=== PATIENT | male | born 1950 | race American Indian/Alaskan Native ===

== ENCOUNTER 2021-02-01 02:47 | Inpatient (IN) | payer OTHER, MEDICARE ==
[2021-02-01] MEDS ORDERED: cefTRIAXone/NS 2 GM/100 ML 2 GM/100 ML BAG IV ONE (02:52)
[2021-02-01] MEDS ORDERED: FUROSEMIDE 20 MG TAB PO ONE (02:53)
[2021-02-01 03:20] LABS: Basophils # (Auto) 0.1 K/mm3 (0.0-0.1); Basophils % (Auto) 0.7 % (0.0-1.8); Eosinophils # (Auto) 0.5 K/mm3 (0.0-0.4); Eosinophils % (Auto) 3.3 % (0.0-4.3); Hematocrit 35.2 % (35.5-45.6); Hemoglobin 11.8 gm/dl (11.8-15.2); Lymphocytes # (Auto) 1.4 K/mm3 (1.2-5.4); Lymphocytes % (Auto) 9.8 % (13.4-35.0); Mean Corpuscular HGB Conc 34 % (32-34); Mean Corpuscular Volume 86 fl (84-94); Monocytes # (Auto) 1.1 K/mm3 (0.0-0.8); Monocytes % (Auto) 7.3 % (0.0-7.3); Platelet Count 313 K/mm3 (140-440); Red Blood Count 4.08 M/mm3 (3.65-5.03); Red Cell Distribution Width 18.6 % (13.2-15.2)
[2021-02-01] MEDS ORDERED: FUROSEMIDE 40 MG/4 ML INJ ONE (03:25)
--- NOTE | 2021-02-01 03:25 | XRay Report ---
Chest single view INDICATION: Respiratory distress IMPRESSION: Severe bilateral airspace disease. Signer Name: Clay Walker MD Signed: 02/01/2021 3:20 AM Workstation Name: [id number]
[2021-02-01 03:45] LABS: Alanine Aminotransferase 19 units/L (7-56); Albumin 4.4 g/dL (3.9-5); BUN/Creatinine Ratio 11; Blood Urea Nitrogen 20 mg/dL (9-20); Calcium 9.2 mg/dL (8.4-10.2); Hemolysis Index 4
[2021-02-01] MEDS ORDERED: AZITHROMYCIN/NS 500 MG/250 ML 500 MG/250 ML BAG IV ONE (04:43)
--- NOTE | 2021-02-01 04:53 | History and Physical Report ---
History of Present Illness Date of examination: 02/01/21 Date of admission: 02/01/2021 Chief complaint: Shortness of Breath History of present illness: 70-year-old -[place] male with known history of hypertension, congestive heart failure and COPD presenting to the emergency room today complaining of shortness of breath. Shortness of breath has been ongoing for the past few days and patient has been using his nebulizing treatments without any significant improvement. He also indicates that he has been having some progressive lower extremity swelling and shortness of breath seems to get worse upon lying flat. He denies any fever or chills, no chest pain, no nausea vomiting, no headache or dizziness, no diaphoresis. Patient denies any sick contacts and no recent travel. Denies any contact with anyone with COVID-19. Patient indicates that he has had a Covid 19 vaccination. He receives his care at the [facility]. Upon arrival of EMS patient's oxygen saturation was about 60% and he was placed on nonrebreather in route to the hospital. Upon arrival in the emergency room he was found to be quite hypertensive and in respiratory distress. Patient was placed on nitro drip and also placed on BiPAP. He received some nebulizing treatment with some improvement. Work-up in the emergency room today, chest x-ray reveals severe bilateral airspace disease. Labs were significant for WBC of 14.7, potassium of 5.1, creatinine of 1.8 Patient is being admitted for respiratory failure possibly secondary to pulmonary edema, pneumonia versus COPD exacerbation. He will also be ruled out for COVID-19. Past History Past Medical History: COPD, heart failure, hypertension Past Surgical History: No surgical history Social history: smoking (Patient is a former smoker) Family history: no significant family history Medications and Allergies Allergies Allergy/AdvReac Type Severity Reaction Status Date / Time shellfish derived Allergy Itching Verified 02/01/21 03:16 Active Meds: Active Medications Azithromycin (Zithromax/Ns) 500 mg in 250 mls @ 250 mls/hr IV ONCE ONE; Protocol Stop: 02/01/21 05:42 Review of Systems Constitutional: no fever, no chills Ears, nose, mouth and throat: no nasal congestion, no sore throat Cardiovascular: orthopnea, edema, no chest pain, no palpitations Respiratory: shortness of breath, wheezing, no cough, no cough with sputum Gastrointestinal: no abdominal pain, no nausea, no vomiting, no diarrhea Genitourinary Male: no dysuria, no hematuria, no flank pain, no nocturia Musculoskeletal: no neck pain, no low back pain Integumentary: no rash, no pruritis Neurological: no headaches, no confusion Psychiatric: no anxiety, no depression Endocrine: no polyphagia, no polydipsia, no polyuria Exam - Constitutional Vitals: Temp Pulse Resp BP Pulse Ox 97 F L 97 H 38 H 166/84 91 02/01/21 02:53 02/01/21 03:44 02/01/21 03:44 02/01/21 03:44 02/01/21 03:44 General appearance: Present: mild distress, well-nourished - EENT Eyes: Present: PERRL, EOM intact. Absent: scleral icterus ENT: hearing intact, clear oral mucosa, dentition normal - Neck Neck: Present: supple, normal ROM - Respiratory Respiratory effort: normal Respiratory: bilateral: rales ( lung bases), other (Few scattered wheezes) - Cardiovascular Rhythm: regular Heart Sounds: Present: S1 & S2. Absent: gallop, systolic murmur, diastolic murmur, rub, click - Extremities Extremities: no ischemia, pulses intact, pulses symmetrical, normal temperature, normal color, Full ROM Extremity abnormal: edema (1+ bilateral ankle edema) Peripheral Pulses: within normal limits - Abdominal General gastrointestinal: Present: soft, non-tender, non-distended, normal bowel sounds, mass - Integumentary Integumentary: Present: clear, warm, dry, normal turgor. Absent: rash - Musculoskeletal Musculoskeletal: strength equal bilaterally - Psychiatric Psychiatric: appropriate mood/affect, intact judgment & insight, memory intact, cooperative - Neurologic Neurologic: CNII-XII intact, no focal deficits, moves all extremities HEART Score - HEART Score Troponin: Troponin T < 0.010 ng/mL (0.00-0.029) 02/01/21 03:10 Results - Labs CBC & Chem 7: 02/01/21 03:10 02/01/21 03:10 Labs: Abnormal lab results 02/01/21 02/01/21 Range/Units 03:10 03:10 WBC 14.7 H (4.5-11.0) K/mm3 Hct 35.2 L (35.5-45.6) % RDW 18.6 H (13.2-15.2) % Lymph % (Auto) 9.8 L (13.4-35.0) % [place] # (Auto) 1.1 H (0.0-0.8) K/mm3 Eos # (Auto) 0.5 H (0.0-0.4) K/mm3 Seg Neutrophils % 78.9 H (40.0-70.0) % Seg Neutrophils # 11.6 H (1.8-7.7) K/mm3 Potassium 5.1 H (3.6-5.0) mmol/L Chloride 97.3 L (98-107) mmol/L Carbon Dioxide 31 H (22-30) mmol/L Creatinine 1.8 H (0.8-1.3) mg/dL Glucose 148 H (75-100) mg/dL Assessment and Plan - Patient Problems (1) Acute respiratory distress Current Visit: Yes Status: Acute Plan to address problem: Possibly secondary to the pulmonary edema/COPD versus underlying pneumonia. Patient currently on BiPAP. He has been started on empiric IV antibiotics for possible underlying pneumonia. He is also placed on nebulizing treatments and IV steroid. Consult placed to conservation assistant for evaluation and recommendations. (2) COPD (chronic obstructive pulmonary disease) Current Visit: Yes Status: Acute Plan to address problem: Patient placed on nebulizing treatments and IV steroid. We will keep O2 saturation greater or equal to 94%. (3) Hypertensive emergency Current Visit: Yes Status: Acute Plan to address problem: Patient was placed on nitro drip while in the emergency room with significant improvement in blood pressure. We will monitor blood pressure closely. We will also place on IV hydralazine as needed. (4) Hypoxia Current Visit: Yes Status: Acute Plan to address problem: Possibly secondary to the underlying pneumonia versus COPD/ pulmonary edema. We will keep O2 saturation greater or equal to 94%. (5) Pulmonary edema Current Visit: Yes Status: Acute Plan to address problem: We will schedule patient for echocardiogram. Consult placed to cardiology for evaluation. (6) ASHLEY (acute kidney injury) Current Visit: Yes Status: Acute Plan to address problem: Baseline creatinine unknown. We will avoid nephrotoxic agents. Consult placed to nephrology for evaluation. (7) DVT prophylaxis Current Visit: Yes Status: Acute Plan to address problem: Patient placed on subcutaneous heparin. (8) Full code status Current Visit: Yes Status: Acute Plan to address problem: Patient is full code.
--- NOTE | 2021-02-01 04:54 | Emergency Department Report ---
ED Shortness of Breath HPI - General Chief Complaint: Dyspnea/Respdistress Stated Complaint: GURJIT Time Seen by Provider: 02/01/21 02:54 Source: patient Mode of arrival: Stretcher Limitations: No Limitations - History of Present Illness Initial Comments: Patient is a 70-year-old F [place] male with a past medical history of hypertension congestive heart failure and COPD who is presenting with respiratory distress. Patient states he has had some shortness of breath over the last several days has been taking neb treatments for wheezing. Symptoms worsened tonight and despite taking a neb treatment his symptoms did not improve. States he has had some leg swelling and shortness of breath with lying flat. Denies cough fevers chills nausea vomiting or diarrhea. Patient states he was vaccinated for COVID-19. Patient was found by paramedics in respiratory distress tripoding and satting in the upper 60% for his O2 sat. - Related Data Allergies Allergy/AdvReac Type Severity Reaction Status Date / Time shellfish derived Allergy Itching Verified 02/01/21 03:16 ED Review of Systems ROS: Stated complaint: GURJIT Other details as noted in HPI Comment: All other systems reviewed and negative ED Past Medical Hx - Past Medical History Previous Medical History?: Yes Hx Hypertension: No Hx CVA: No Hx Heart Attack/AMI: No Hx Congestive Heart Failure: Yes Hx Diabetes: Yes Hx Deep Vein Thrombosis: No Hx Pulmonary Embolism: No Hx GERD: No Hx Liver Disease: No Hx Renal Disease: No Hx of Cancer: No Hx Sickle Cell Disease: No Hx Arthritis: No Hx Headaches / Migraines: No Hx Seizures: No Hx Kidney Stones: No Hx Psychiatric Treatment: No Hx Asthma: No Hx COPD: Yes Hx Tuberculosis: No Hx Dementia: No Hx HIV: No - Surgical History Past Surgical History?: Yes - Social History Smoking Status: Never Smoker Substance Use Type: None ED Physical Exam - General Limitations: No Limitations General appearance: alert, in distress - Head Head exam: Present: atraumatic, normocephalic - Eye Eye exam: Present: normal appearance - ENT ENT exam: Present: mucous membranes moist - Neck Neck exam: Present: normal inspection - Respiratory Respiratory exam: Present: respiratory distress, rales, rhonchi, accessory muscle use. Absent: normal lung sounds bilaterally, wheezes, stridor - Cardiovascular Cardiovascular Exam: Present: normal rhythm, tachycardia, normal heart sounds. Absent: systolic murmur, diastolic murmur, rubs, gallop - GI/Abdominal GI/Abdominal exam: Present: soft, normal bowel sounds. Absent: distended, tenderness, guarding, rebound - Rectal Rectal exam: Present: deferred - Extremities Exam Extremities exam: Present: normal inspection, other (+1 edema bilateral ankles) - Back Exam Back exam: Present: normal inspection - Neurological Exam Neurological exam: Present: alert, oriented X3 - Psychiatric Psychiatric exam: Present: normal affect, normal mood - Skin Skin exam: Present: warm, dry, intact, normal color. Absent: rash ED Course Vital Signs 02/01/21 02/01/21 02:53 03:44 Temperature 97 F L Pulse Rate 97 H 97 H Respiratory 38 H Rate Blood Pressure 162/88 166/84 O2 Sat by Pulse 91 Oximetry ED Medical Decision Making - Lab Data Result diagrams: 02/01/21 03:10 02/01/21 03:10 Lab Results 02/01/21 02/01/21 02/01/21 Range/Units 03:10 03:10 03:10 WBC 14.7 H (4.5-11.0) K/mm3 RBC 4.08 (3.65-5.03) M/mm3 Hgb 11.8 (11.8-15.2) gm/dl Hct 35.2 L (35.5-45.6) % MCV 86 (84-94) fl MCH 29 (28-32) pg MCHC 34 (32-34) % RDW 18.6 H (13.2-15.2) % Plt Count 313 (140-440) K/mm3 Lymph % (Auto) 9.8 L (13.4-35.0) % [place] % (Auto) 7.3 (0.0-7.3) % Eos % (Auto) 3.3 (0.0-4.3) % Baso % (Auto) 0.7 (0.0-1.8) % Lymph # (Auto) 1.4 (1.2-5.4) K/mm3 [place] # (Auto) 1.1 H (0.0-0.8) K/mm3 Eos # (Auto) 0.5 H (0.0-0.4) K/mm3 Baso # (Auto) 0.1 (0.0-0.1) K/mm3 Seg Neutrophils % 78.9 H (40.0-70.0) % Seg Neutrophils # 11.6 H (1.8-7.7) K/mm3 Sodium 140 (137-145) mmol/L Potassium 5.1 H (3.6-5.0) mmol/L Chloride 97.3 L (98-107) mmol/L Carbon Dioxide 31 H (22-30) mmol/L Anion Gap 17 mmol/L BUN 20 (9-20) mg/dL Creatinine 1.8 H (0.8-1.3) mg/dL Estimated GFR 45 ml/min BUN/Creatinine Ratio 11 % Glucose 148 H (75-100) mg/dL Lactic Acid (0.7-2.0) mmol/L Calcium 9.2 (8.4-10.2) mg/dL Total Bilirubin 0.40 (0.1-1.2) mg/dL AST 22 (5-40) units/L ALT 19 (7-56) units/L Alkaline Phosphatase 116 (35-129) units/L Troponin T < 0.010 (0.00-0.029) ng/mL NT-Pro-B Natriuret Pep 397.4 (0-900) pg/mL Total Protein 7.7 (6.3-8.2) g/dL Albumin 4.4 (3.9-5) g/dL Albumin/Globulin Ratio 1.3 % 02/01/ Range/Units 03:10 WBC (4.5-11.0) K/mm3 RBC (3.65-5.03) M/mm3 Hgb (11.8-15.2) gm/dl Hct (35.5-45.6) % MCV (84-94) fl MCH (28-32) pg MCHC (32-34) % RDW (13.2-15.2) % Plt Count (140-440) K/mm3 Lymph % (Auto) (13.4-35.0) % [place] % (Auto) (0.0-7.3) % Eos % (Auto) (0.0-4.3) % Baso % (Auto) (0.0-1.8) % Lymph # (Auto) (1.2-5.4) K/mm3 [place] # (Auto) (0.0-0.8) K/mm3 Eos # (Auto) (0.0-0.4) K/mm3 Baso # (Auto) (0.0-0.1) K/mm3 Seg Neutrophils % (40.0-70.0) % Seg Neutrophils # (1.8-7.7) K/mm3 Sodium (137-145) mmol/L Potassium (3.6-5.0) mmol/L Chloride (98-107) mmol/L Carbon Dioxide (22-30) mmol/L Anion Gap mmol/L BUN (9-20) mg/dL Creatinine (0.8-1.3) mg/dL Estimated GFR ml/min BUN/Creatinine Ratio % Glucose (75-100) mg/dL Lactic Acid 1.80 (0.7-2.0) mmol/L Calcium (8.4-10.2) mg/dL Total Bilirubin (0.1-1.2) mg/dL AST (5-40) units/L ALT (7-56) units/L Alkaline Phosphatase (35-129) units/L Troponin T (0.00-0.029) ng/mL NT-Pro-B Natriuret Pep (0-900) pg/mL Total Protein (6.3-8.2) g/dL Albumin (3.9-5) g/dL Albumin/Globulin Ratio % - Radiology Data [facility] [address] [place] [address] XRay Report Signed Patient: ELLA POLANCO MR#: [id number] : 1950 Acct:[id number] Age/Sex: 70 / M ADM Date: 02/01/21 Loc: ED Attending Dr: Ordering Physician: CJ GARCÍA MD Date of Service: 02/01/21 Procedure(s): XR chest 1V ap Accession Number(s): [id number] cc: CJ GARCÍA MD Fluoro Time In Minutes: Chest single view INDICATION: Respiratory distress IMPRESSION: Severe bilateral airspace disease. Signer Name: Clay Walker MD Signed: 02/01/2021 3:20 AM Workstation Name: [id number] - Medical Decision Making Patient is 70-year-old F [place] male with past medical history of COPD CHF and hypertension who is in respiratory distress and hypoxia. Patient was wheezing initially when paramedics arrived and received neb treatment and solumedrol and the wheezing resolved. Patient blood pressure in the 190s systolic. On arrival blood pressure was in the 160s. Nitro drip was ordered however did not need to be given since the patient's blood pressure continued to drop. At time of admission systolic was 120. Patient given Rocephin initially the sepsis protocol. Chest x-ray showed what looks like pulmonary edema however there was some mild asymmetric findings which made the pneumonia unable to be ruled out. There is some elevation of his white count as well. Patient started on azithromycin and Rocephin. Patient given Lasix and started on diuresis. He did much more comfortable on BiPAP. Patient admitted to the hospitalist service. Critical Care Time: Yes (40) Critical care attestation.: If time is entered above; I have spent that time in minutes in the direct care of this critically ill patient, excluding procedure time. ED Disposition Clinical Impression: Acute respiratory distress, Hypoxia, Pulmonary edema, Hypertensive emergency, COPD (chronic obstructive pulmonary disease) Disposition: OP ADMIT IP TO THIS HOSP Is pt being admited?: Yes Does the pt Need Aspirin: No Condition: Stable Instructions: Pulmonary Edema (ED), Hypertension (ED), Chronic Obstructive Pulmonary Disease (ED) Time of Disposition: 04:55
[2021-02-01] MEDS ORDERED: ONDANSETRON 4 MG/2 ML INJ IV PRN (05:00)
[2021-02-01] MEDS ORDERED: MAGNESIUM HYDROXIDE (MOM) ORAL LIQD UDC PO PRN (05:00)
[2021-02-01] MEDS ORDERED: MORPHINE 2 MG/1 ML INJ IV PRN (05:00)
[2021-02-01 05:34] LABS: C-Reactive Protein 1.1 mg/dL (0.00-1.30)
[2021-02-01] MEDS: methylPREDNISolone Sod Succinate 40 MG/1 ML INJ IV SCH ×3 (06:00→23:24)
[2021-02-01] MEDS: HEPARIN 5,000 UNIT/1 ML VIAL SUB-Q SCH ×3 (06:00→23:23)
[2021-02-01] MEDS ORDERED: FUROSEMIDE 40 MG/4 ML INJ IV ONE (06:04)
[2021-02-01] MEDS ORDERED: hydrALAZINE 20 MG/1 ML INJ IV PRN (06:21)
--- NOTE | 2021-02-01 09:28 | Consultation ---
History of Present Illness Reason for consult: dyspnea, abnormal CXR/CT History of present illness: This is gentleman with hx of copd, chf who comes in with sob. He was doing well until a few days ago when he began having these symptoms. He self treated to nebulizer treatments without improvement. He came to er in distress. CXR showed bilateral infiltrates and started on bipap. Presently is awake and responsive on bipap on bipap 16/ 85% Past History Past Medical History: COPD, heart failure, hypertension Past Surgical History: No surgical history Social history: smoking (Patient is a former smoker) Family history: no significant family history Medications and Allergies Allergies Allergy/AdvReac Type Severity Reaction Status Date / Time shellfish derived Allergy Itching Verified 02/01/21 03:16 Active Meds: Active Medications Albuterol/Ipratropium (Ipratropium/Albuterol Sulfate 3 Ml Ampul.Neb) 1 ampul IH Q4HRT REVA Heparin Sodium (Porcine) (Heparin 5,000 Unit/1 Ml Vial) 5,000 unit SUB-Q Q8HR REVA Last Admin: 02/01/21 06:00 Dose: 5,000 unit Documented by: Hydralazine HCl (Hydralazine 20 Mg/1 Ml Inj) 10 mg IV Q4HR PRN PRN Reason: Blood Pressure Ceftriaxone Sodium (Rocephin/Ns 2 Gm/100 Ml) 2 gm in 100 mls @ 200 mls/hr IV Q24H REVA; Protocol Azithromycin (Zithromax/Ns) 500 mg in 250 mls @ 250 mls/hr IV Q24H REVA; Protocol Magnesium Hydroxide (Magnesium Hydroxide (Mom) Oral Liqd Udc) 30 ml PO Q4H PRN PRN Reason: Constipation Methylprednisolone Sodium Succinate (Methylprednisolone Sod Succinate 40 Mg/1 Ml Inj) 40 mg IV Q8HR REVA Last Admin: 02/01/21 06:00 Dose: 40 mg Documented by: Morphine Sulfate (Morphine 2 Mg/1 Ml Inj) 2 mg IV Q4H PRN PRN Reason: Pain, Moderate (4-6) Ondansetron HCl (Ondansetron 4 Mg/2 Ml Inj) 4 mg IV Q8H PRN PRN Reason: Nausea And Vomiting Sodium Chloride (Sodium Chloride 0.9% 10 Ml Flush Syringe) 10 ml IV BID REVA Sodium Chloride (Sodium Chloride 0.9% 10 Ml Flush Syringe) 10 ml IV PRN PRN PRN Reason: LINE FLUSH Review of Systems Constitutional: weakness Respiratory: shortness of breath Integumentary: other (edema 1+ bilateral) Physical Examination Vital signs: Vital Signs Temp Pulse BP 97 F L 97 H 162/88 02/01/21 02:53 02/01/21 02:53 02/01/21 02:53 General appearance: alert Eyes: non-icteric ENT: oropharynx moist, other (no jvd) Neck: supple, no JVD Ascultation: Bilateral: diminished breath sounds Cardiovascular: regular rate and rhythm Gastrointestinal: normoactive bowel sounds, soft, non-tender Extremities: edema Results - Laboratory Findings CBC and BMP: 02/01/21 03:10 02/01/21 03:10 PT/INR, D-dimer D-Dimer 872.83 ng/mlDDU (0-234) H 02/01/21 04:47 Abnormal lab findings: Abnormal Labs 02/01/21 02/01/21 02/01/21 03:10 03:10 03:10 WBC 14.7 H Hct 35.2 L RDW 18.6 H Lymph % (Auto) 9.8 L [place] # (Auto) 1.1 H Eos # (Auto) 0.5 H Seg Neutrophils % 78.9 H Seg Neutrophils # 11.6 H D-Dimer Potassium 5.1 H Chloride 97.3 L Carbon Dioxide 31 H Creatinine 1.8 H Glucose 148 H Lactate Dehydrogenase 243 H 02/01/21 04:47 WBC Hct RDW Lymph % (Auto) [place] # (Auto) Eos # (Auto) Seg Neutrophils % Seg Neutrophils # D-Dimer 872.83 H Potassium Chloride Carbon Dioxide Creatinine Glucose Lactate Dehydrogenase - Diagnostic Findings Chest x-ray: report reviewed, image reviewed Assessment and Plan - Patient Problems (1) ASHLEY (acute kidney injury) Current Visit: Yes Status: Acute (2) Acute respiratory distress Current Visit: Yes Status: Acute (3) COPD (chronic obstructive pulmonary disease) Current Visit: Yes Status: Acute (4) Hypoxia Current Visit: Yes Status: Acute (5) Pulmonary edema Current Visit: Yes Status: Acute
--- NOTE | 2021-02-01 09:34 | Progress Note ---
Assessment and Plan Assessment and plan: Acute hypoxic respiratory failure Sepsis. Present on admission. Patient meets criteria given the tachypnea, tachycardia, leukocytosis and diagnosis of pneumonia. Bilateral pneumonia COPD exacerbation Accelerated hypertension Acute kidney injury. 02/01/2021. Patient with acute respiratory failure likely secondary to bilateral pneumonia, COPD exacerbation and possibility of PE. Patient does have elevated D-dimer. Check VQ scan given the elevated creatinine. Doubt heart failure given the normal BNP and no evidence of pulmonary edema on x-ray. Follow-up echocardiogram and cardiology recommendations. Continue O2 supplementation and BiPAP as clinically indicated. Patient's creatinine is elevated at 1.8 and we do not have a baseline creatinine to compare. Check renal ultrasound and nep hrology consultation pending. I suspect patient has CKD. Continue IV antibiotics and follow-up blood and sputum cultures. Pulmonary consultation. This is a follow-up from an admission earlier this morning. We will continue to plan as outlined in H&P. Total visit time equals 35 minutes with greater than 50% spent on coordination of care and counseling. We will connect with [facility] to determine whether patient will be transferred to their acute facility. History Interval history: Acute hypoxic respiratory failure Sepsis. Present on admission. Patient meets criteria given the tachypnea, tachycardia, leukocytosis and diagnosis of pneumonia. Bilateral pneumonia COPD exacerbation Accelerated hypertension Acute kidney injury. 02/01/2021. Patient with acute respiratory failure likely secondary to bilateral pneumonia, COPD exacerbation and possibility of PE. Patient does have elevated D-dimer. Check VQ scan given the elevated creatinine. Doubt heart failure given the normal BNP and no evidence of pulmonary edema on x-ray. Follow-up e chocardiogram and cardiology recommendations. Continue O2 supplementation and BiPAP as clinically indicated. Patient's creatinine is elevated at 1.8 and we do not have a baseline creatinine to compare. Check renal ultrasound and nephrology consultation pending. I suspect patient has CKD. Continue IV antibiotics and follow-up blood and sputum cultures. Pulmonary consultation Hospitalist Physical - Constitutional Vitals: Temp Pulse Resp BP Pulse Ox 97 F L 85 19 110/72 97 02/01/21 02:53 02/01/21 05:45 02/01/21 05:45 02/01/21 05:45 02/01/21 05:45 General appearance: Present: mild distress, well-nourished HEART Score - HEART Score Troponin: Troponin T < 0.010 ng/mL (0.00-0.029) 02/01/21 03:10 Results - Labs CBC & Chem 7: 02/01/21 03:10 02/01/21 03:10 Labs: Laboratory Last Values WBC 14.7 K/mm3 (4.5-11.0) H 02/01/21 03:10 RBC 4.08 M/mm3 (3.65-5.03) 02/01/21 03:10 Hgb 11.8 gm/dl (11.8-15.2) 02/01/21 03:10 Hct 35.2 % (35.5-45.6) L 02/01/21 03:10 MCV 86 fl (84-94) 02/01/21 03:10 MCH 29 pg (28-32) 02/01/21 03:10 MCHC 34 % (32-34) 02/01/21 03:10 RDW 18.6 % (13.2-15.2) H 02/01/21 03:10 Plt Count 313 K/mm3 (140-440) 02/01/21 03:10 Lymph % (Auto) 9.8 % (13.4-35.0) L 02/01/21 03:10 [place] % (Auto) 7.3 % (0.0-7.3) 02/01/21 03:10 Eos % (Auto) 3.3 % (0.0-4.3) 02/01/21 03:10 Baso % (Auto) 0.7 % (0.0-1.8) 02/01/21 03:10 Lymph # (Auto) 1.4 K/mm3 (1.2-5.4) 02/01/21 03:10 [place] # (Auto) 1.1 K/mm3 (0.0-0.8) H 02/01/21 03:10 Eos # (Auto) 0.5 K/mm3 (0.0-0.4) H 02/01/21 03:10 Baso # (Auto) 0.1 K/mm3 (0.0-0.1) 02/01/21 03:10 Seg Neutrophils % 78.9 % (40.0-70.0) H 02/01/21 03:10 Seg Neutrophils # 11.6 K/mm3 (1.8-7.7) H 02/01/21 03:10 D-Dimer 872.83 ng/mlDDU (0-234) H 02/01/21 04:47 Sodium 140 mmol/L (137-145) 02/01/21 03:10 Potassium 5.1 mmol/L (3.6-5.0) H 02/01/21 03:10 Chloride 97.3 mmol/L (98-107) L 02/01/21 03:10 Carbon Dioxide 31 mmol/L (22-30) H 02/01/21 03:10 Anion Gap 17 mmol/L 02/01/21 03:10 BUN 20 mg/dL (9-20) 02/01/21 03:10 Creatinine 1.8 mg/dL (0.8-1.3) H 02/01/21 03:10 Estimated GFR 45 ml/min 02/01/21 03:10 BUN/Creatinine Ratio 11 % 02/01/21 03:10 Glucose 148 mg/dL (75-100) H 02/01/21 03:10 Lactic Acid 1.80 mmol/L (0.7-2.0) 02/01/21 03:10 Calcium 9.2 mg/dL (8.4-10.2) 02/01/21 03:10 Ferritin 166.6 ng/mL (30.0-300.0) 02/01/21 03:10 Total Bilirubin 0.40 mg/dL (0.1-1.2) 02/01/21 03:10 AST 22 units/L (5-40) 02/01/21 03:10 ALT 19 units/L (7-56) 02/01/21 03:10 Alkaline Phosphatase 116 units/L (35-129) 02/01/21 03:10 Lactate Dehydrogenase 243 units/L (91-180) H 02/01/21 03:10 Troponin T < 0.010 ng/mL (0.00-0.029) 02/01/21 03:10 C-Reactive Protein 1.10 mg/dL (0.00-1.30) 02/01/21 03:10 NT-Pro-B Natriuret Pep 397.4 pg/mL (0-900) 02/01/21 03:10 Total Protein 7.7 g/dL (6.3-8.2) 02/01/21 03:10 Albumin 4.4 g/dL (3.9-5) 02/01/21 03:10 Albumin/Globulin Ratio 1.3 % 02/01/21 03:10 Microbiology: Microbiology 02/01/21 03:10 Peripheral/Venous Blood Culture - Preliminary Culture in Progress 02/01/21 03:04 Peripheral/Venous Blood Culture - Preliminary Culture in Progress Active Medications - Current Medications Current Medications: Generic Name Dose Route Start Last Admin Trade Name Freq PRN Reason Stop Dose Admin Albuterol/Ipratropium 1 ampul 02/01/21 08:00 Ipratropium/Albuterol Sulfate 3 Ml Ampul.Neb IH Q4HRT REVA Heparin Sodium (Porcine) 5,000 unit 02/01/21 06:00 02/01/21 06:00 Heparin 5,000 Unit/1 Ml Vial SUB-Q 5,000 unit Q8HR REVA Administration Hydralazine HCl 10 mg 02/01/21 06:21 Hydralazine 20 Mg/1 Ml Inj IV Q4HR PRN Blood Pressure Ceftriaxone Sodium 2 gm in 100 mls @ 200 mls/hr 02/02/21 04:00 Rocephin/Ns 2 Gm/100 Ml IV Q24H [facility] Protocol Azithromycin 500 mg in 250 mls @ 250 mls/hr 02/02/21 05:00 Zithromax/Ns IV Q24H [facility] Protocol Magnesium Hydroxide 30 ml 02/01/21 05:00 Magnesium Hydroxide (Mom) Oral Liqd Udc PO Q4H PRN Constipation Methylprednisolone Sodium Succinate 40 mg 02/01/21 06:00 02/01/21 06:00 Methylprednisolone Sod Succinate 40 Mg/1 Ml Inj IV 40 mg Q8HR RE[facility] Administration Morphine Sulfate 2 mg 02/01/21 05:00 Morphine 2 Mg/1 Ml Inj IV Q4H PRN Pain, Moderate (4-6) Ondansetron HCl 4 mg 02/01/21 05:00 Ondansetron 4 Mg/2 Ml Inj IV Q8H PRN Nausea And Vomiting Sodium Chloride 10 ml 02/01/21 10:00 Sodium Chloride 0.9% 10 Ml Flush Syringe IV BID REVA Sodium Chloride 10 ml 02/01/21 05:00 Sodium Chloride 0.9% 10 Ml Flush Syringe IV PRN PRN LINE FLUSH
[2021-02-01] MEDS: IPRATROPIUM/ALBUTEROL SULFATE 3 ML AMPUL.NEB IH SCH ×4 (10:29→20:02)
--- NOTE | 2021-02-01 17:07 | Consultation ---
History of Present Illness - Reason for Consult Consult date: 02/01/21 - History of Present Illness 70-year-old male past medical historyhypertension, CHF, COPD presented to hospital complaining shortness of breath. This began approximately 3 days prior to admission and was nonresponsive to his nebulizer treatments. He complains of associated lower extremity swelling. He otherwise denies symptoms. He reports receiving his COVID-19 vaccine at the [facility]. Otherwise no acute issues. Afebrile, tachypneic. White count 14.7. Covid PCR negative. Estimated GFR 45. Blood cultures no growth so far. Currently on ceftriaxone azithromycin. Requiring high flow nasal cannula. Imaging personally reviewed: Chest x-ray: Severe bilateral airspace disease. Review of Systems: Bold if positive, otherwise negative General: fevers, chills, rigors HEENT: visual disturbance, diplopia, eye pain Respiratory: cough, sputum, hemoptysis, shortness of breath Cardiovascular: chest pain, syncope Gastrointestinal: nausea, vomiting, diarrhea, abdominal pain Genitourinary: dysuria, hematuria, flank pain Musculoskeletal: neck pain, back pain, joint pain, edema Neurologic: headaches, seizures Hematologic: easy bruising or bleeding Endocrine: night sweats, acute weight loss Skin: rash, jaundice, redness Psychiatric: suicidal, homicidal ideation Past History Past Medical History: COPD, heart failure, hypertension Past Surgical History: No surgical history Social history: smoking (Patient is a former smoker) Family history: no significant family history Medications and Allergies Allergies Allergy/AdvReac Type Severity Reaction Status Date / Time shellfish derived Allergy Itching Verified 02/01/21 03:16 Active Meds: Active Medications Albuterol/Ipratropium (Ipratropium/Albuterol Sulfate 3 Ml Ampul.Neb) 1 ampul IH Q4HRT [facility] Last Admin: 02/01/21 14:28 Dose: 1 ampul Documented by: Heparin Sodium (Porcine) (Heparin 5,000 Unit/1 Ml Vial) 5,000 unit SUB-Q Q8HR [facility] Last Admin: 02/01/21 06:00 Dose: 5,000 unit Documented by: Hydralazine HCl (Hydralazine 20 Mg/1 Ml Inj) 10 mg IV Q4HR PRN PRN Reason: Blood Pressure Ceftriaxone Sodium (Rocephin/Ns 2 Gm/100 Ml) 2 gm in 100 mls @ 200 mls/hr IV Q24H [facility]; Protocol Azithromycin (Zithromax/Ns) 500 mg in 250 mls @ 250 mls/hr IV Q24H [facility]; Protocol Magnesium Hydroxide (Magnesium Hydroxide (Mom) Oral Liqd Udc) 30 ml PO Q4H PRN PRN Reason: Constipation Methylprednisolone Sodium Succinate (Methylprednisolone Sod Succinate 40 Mg/1 Ml Inj) 40 mg IV Q8HR [facility] Last Admin: 02/01/21 06:00 Dose: 40 mg Documented by: Morphine Sulfate (Morphine 2 Mg/1 Ml Inj) 2 mg IV Q4H PRN PRN Reason: Pain, Moderate (4-6) Ondansetron HCl (Ondansetron 4 Mg/2 Ml Inj) 4 mg IV Q8H PRN PRN Reason: Nausea And Vomiting Sodium Chloride (Sodium Chloride 0.9% 10 Ml Flush Syringe) 10 ml IV BID [facility] Last Admin: 02/01/21 10:29 Dose: 10 ml Documented by: Sodium Chloride (Sodium Chloride 0.9% 10 Ml Flush Syringe) 10 ml IV PRN PRN PRN Reason: LINE FLUSH Physical Examination - Physical Exam Narrative exam: Physical Exam: Constitutional: Alert, cooperative. No acute distress Head, Ears, Nose: Normocephalic, atraumatic. External ears, nose normal Eyes: Conjunctivae/corneas clear. No icterus. No ptosis. Neck: Supple, no meningeal signs Oral: dentition fair, no thrush Cardiovascular: S1, S2 normal. Respiratory: Good air entry, clear to auscultation bilaterally GI: Soft, non-tender; bowel sounds normal. No peritoneal signs. Musculoskeletal: No pedal edema, no cyanosis. Skin: No rash or abscess Hem/Lymphatic: No palpable cervical or supraclavicular nodes. No lymphangitis Psych: Mood ok. Affect normal Neurological: Awake, alert, oriented. No gross abnormality - Constitutional Vitals: Vital Signs Temp Pulse Resp BP Pulse Ox 97 F L 77 14 123/72 93 02/01/21 02:53 02/01/21 14:29 02/01/21 14:29 02/01/21 14:06 02/01/21 14:32 Temperature -Last 24 Hours Temperature 97 F Results - Labs CBC & Chem 7: 02/01/21 03:10 02/01/21 03:10 Labs: Abnormal lab results 02/01/21 02/01/21 02/01/21 Range/Units 03:10 03:10 03:10 WBC 14.7 H (4.5-11.0) K/mm3 Hct 35.2 L (35.5-45.6) % RDW 18.6 H (13.2-15.2) % Lymph % (Auto) 9.8 L (13.4-35.0) % [place] # (Auto) 1.1 H (0.0-0.8) K/mm3 Eos # (Auto) 0.5 H (0.0-0.4) K/mm3 Seg Neutrophils % 78.9 H (40.0-70.0) % Seg Neutrophils # 11.6 H (1.8-7.7) K/mm3 D-Dimer (0-234) ng/mlDDU Potassium 5.1 H (3.6-5.0) mmol/L Chloride 97.3 L (98-107) mmol/L Carbon Dioxide 31 H (22-30) mmol/L Creatinine 1.8 H (0.8-1.3) mg/dL Glucose 148 H (75-100) mg/dL POC Glucose (70-105) mg/dL Lactate Dehydrogenase 243 H (91-180) units/L 02/01/21 02/01/21 Range/Units 04:47 13:07 WBC (4.5-11.0) K/mm3 Hct (35.5-45.6) % RDW (13.2-15.2) % Lymph % (Auto) (13.4-35.0) % [place] # (Auto) (0.0-0.8) K/mm3 Eos # (Auto) (0.0-0.4) K/mm3 Seg Neutrophils % (40.0-70.0) % Seg Neutrophils # (1.8-7.7) K/mm3 D-Dimer 872.83 H (0-234) ng/mlDDU Potassium (3.6-5.0) mmol/L Chloride (98-107) mmol/L Carbon Dioxide (22-30) mmol/L Creatinine (0.8-1.3) mg/dL Glucose (75-100) mg/dL POC Glucose 169 H (70-105) mg/dL Lactate Dehydrogenase (91-180) units/L Assessment and Plan Cultures: Blood culture 02/01/2021 no growth so far A/P: 70-year-old male past medical historyhypertension, CHF, COPD admitted with acute hypoxic respiratory failure #Acute hypoxic respiratory failure: Secondary to pneumonia versus edema. Currently requiring high flow nasal cannula. #Bilateral pneumonia: In the setting of fluid overload, though with elevated white count. Will check procalcitonin, continue empiric antibiotics for now. #Fluid overload, in the setting of history of CHF. #ASHLEY: Related adjust medications Recs: -Continue empiric ceftriaxone and azithromycin for now -Follow blood cultures -Obtain procalcitonin. Thank you for the consult, we will continue to follow. MD [facility] O: [phone] F: [phone]
--- NOTE | 2021-02-01 19:01 | Consultation ---
History of Present Illness - Reason for Consult Consult date: 02/01/21 acute renal failure - History of Present Illness Mr. Rodriguez is a 70yo male with hypertension, CHF and COPD who presented to the ED via EMS with respiratory distress. Per records, edelmira was found tripoding by EMS w/ O2 sat 60%. He reports SOB not allevited/improved by nebulizer. He reports edema and orthopnea. CXR in the ED notable for atient states he has had some shortness of breath over the last several days has been taking neb treatments for wheezing. Symptoms worsened tonight and despite taking a neb treatment his symptoms did not improve. States he has had some leg swelling and shortness of breath with lying flat. Denies cough fevers chills nausea vomiting or diarrhea. Patient states he was vaccinated for COVID-19. Patient was found by paramedics in respiratory distress tripoding and satting in the upper 60% for his O2 sat. Past History Past Medical History: COPD, heart failure, hypertension Past Surgical History: No surgical history Social history: smoking (Patient is a former smoker) Family history: no significant family history Medications and Allergies Allergies Allergy/AdvReac Type Severity Reaction Status Date / Time shellfish derived Allergy Itching Verified 02/01/21 03:16 Active Meds: Active Medications Albuterol/Ipratropium (Ipratropium/Albuterol Sulfate 3 Ml Ampul.Neb) 1 ampul IH Q4HRT [facility] Last Admin: 02/01/21 14:28 Dose: 1 ampul Documented by: Furosemide (Furosemide 40 Mg/4 Ml Inj) 40 mg IV QDAY REVA Heparin Sodium (Porcine) (Heparin 5,000 Unit/1 Ml Vial) 5,000 unit SUB-Q Q8HR RE[facility] Last Admin: 02/01/21 06:00 Dose: 5,000 unit Documented by: Hydralazine HCl (Hydralazine 20 Mg/1 Ml Inj) 10 mg IV Q4HR PRN PRN Reason: Blood Pressure Ceftriaxone Sodium (Rocephin/Ns 2 Gm/100 Ml) 2 gm in 100 mls @ 200 mls/hr IV Q24H [facility]; Protocol Azithromycin (Zithromax/Ns) 500 mg in 250 mls @ 250 mls/hr IV Q24H [facility]; Protocol Magnesium Hydroxide (Magnesium Hydroxide (Mom) Oral Liqd Udc) 30 ml PO Q4H PRN PRN Reason: Constipation Methylprednisolone Sodium Succinate (Methylprednisolone Sod Succinate 40 Mg/1 Ml Inj) 40 mg IV Q8HR [facility] Last Admin: 02/01/21 06:00 Dose: 40 mg Documented by: Morphine Sulfate (Morphine 2 Mg/1 Ml Inj) 2 mg IV Q4H PRN PRN Reason: Pain, Moderate (4-6) Ondansetron HCl (Ondansetron 4 Mg/2 Ml Inj) 4 mg IV Q8H PRN PRN Reason: Nausea And Vomiting Sodium Chloride (Sodium Chloride 0.9% 10 Ml Flush Syringe) 10 ml IV BID [facility] Last Admin: 02/01/21 10:29 Dose: 10 ml Documented by: Sodium Chloride (Sodium Chloride 0.9% 10 Ml Flush Syringe) 10 ml IV PRN PRN PRN Reason: LINE FLUSH Review of Systems All systems: negative Exam - Vital Signs Vital signs: Vital Signs Temp Pulse BP 97 F L 97 H 162/88 02/01/21 02:53 02/01/21 02:53 02/01/21 02:53 - Physical Exam Narrative exam: Exam limited - r/o COVID 19 in progress - General Appearance General appearance: well-developed, well-nourished EENT: ATNC Results - Lab Results 02/01/21 03:10 02/01/21 03:10 Most recent lab results Calcium 9.2 mg/dL (8.4-10.2) 02/01/21 03:10 Assessment and Plan Impression: * Acute kidney injury vs underlying CKD * Acute hypoxic respiratory failure secondary to pulmonary edema vs infectious etilogy vs COPD exacerbation * Congestive heart failure * r/o COVID 19 * Hypertension Plan: * No acute indication for renal replacement therapy * Continue IV diuresis * Obtain urine lytes * Obtaiin serologic work up * Renal u/s ordered and pending * Pulmonary recommendations reviewed * Avoid potential nephrotoxins * Dose medications for renal function * AM labs
--- NOTE | 2021-02-01 21:39 | Ultrasound Report ---
ULTRASOUND RENAL INDICATION: ASHLEY. COMPARISON: No relevant prior imaging study available. FINDINGS: RIGHT KIDNEY: Size: 10.9 cm. Echogenicity: Moderate increased echotexture. Cortical thickness: 1.9 cm. Hydronephrosis: None. Cyst or mass: None. Stones: None. LEFT KIDNEY: Size: 10.0 cm. Echogenicity: Moderate increased echotexture. Cortical thickness: 1.7 cm. Hydronephrosis: None. Cyst or mass: Several small cysts measuring up to 2.1 cm Stones: None. Urinary Bladder: No significant abnormality. Free Fluid: None. Additional Findings: 3.2 cm cystic lesion within spleen characteristic for pseudocyst. IMPRESSION 1. Echogenic kidneys characteristic for medical renal disease. No hydronephrosis. 2. 3 cm splenic pseudocysts 3. Several left renal cysts Signer Name: Regis Becerril MD Signed: 02/01/2021 9:35 PM Workstation Name: [id number]
[2021-02-02 02:00] LABS: Creatinine,Urine 99.1 mg/dL (0.1-20.0)
[2021-02-02 02:05] LABS: Bacteria,Urine 1+ /HPF (Negative); Bilirubin,Urine NEG (Negative); Blood,Urine NEG (Negative); Color,Urine Yellow (Yellow); Mucus,Urine FEW /HPF; RBC,Urine < 1.0 /HPF (0.0-6.0); Urobilinogen,Urine < 2.0 mg/dL (<2.0)
[2021-02-02 02:06] LABS: Protein,Urine >500 mg/dL (Negative)
[2021-02-02 02:11] LABS: Protein/Creatinine Ratio,Urine 2.21
[2021-02-02] MEDS: IPRATROPIUM/ALBUTEROL SULFATE 3 ML AMPUL.NEB IH SCH ×4 (03:59→20:30)
[2021-02-02] MEDS: cefTRIAXone/NS 2 GM/100 ML 2 GM/100 ML BAG IV SCH (04:15)
--- NOTE | 2021-02-02 04:21 | XRay Report ---
Chest single view INDICATION: Dyspnea IMPRESSION: Bilateral airspace pneumonia has slightly improved from 02/01/2021. Signer Name: Clay Walker MD Signed: 02/02/2021 4:17 AM Workstation Name: [id number]
[2021-02-02] MEDS: AZITHROMYCIN/NS 500 MG/250 ML 500 MG/250 ML BAG IV SCH (05:13)
[2021-02-02] MEDS: methylPREDNISolone Sod Succinate 40 MG/1 ML INJ IV SCH ×3 (05:14→21:40)
[2021-02-02] MEDS: HEPARIN 5,000 UNIT/1 ML VIAL SUB-Q SCH ×3 (05:14→21:39)
[2021-02-02] MEDS: FUROSEMIDE 40 MG/4 ML INJ IV SCH (09:08)
--- NOTE | 2021-02-02 09:27 | Progress Note ---
Assessment and Plan - Patient Problems (1) ASHLEY (acute kidney injury) Current Visit: Yes Status: Acute (2) Acute respiratory distress Current Visit: Yes Status: Acute (3) COPD (chronic obstructive pulmonary disease) Current Visit: Yes Status: Acute (4) Hypoxia Current Visit: Yes Status: Acute (5) Pulmonary edema Current Visit: Yes Status: Acute Subjective Interval history: awake responsive. Feels better Reports a hx of renal insuff. Followed at the [facility] Vital Signs - 12hr 02/01/21 02/01/21 02/01/21 21:30 22:00 22:30 Temperature Pulse Rate Pulse Rate [ Anterior Bilateral Throughout] Pulse Rate [ From Monitor] Pulse Rate [ Left] Respiratory Rate Respiratory Rate [Anterior Bilateral Throughout] Blood Pressure 136/79 127/70 127/70 O2 Sat by Pulse 95 98 96 Oximetry 02/01/21 02/01/21 02/01/21 22:40 22:50 23:00 Temperature Pulse Rate Pulse Rate [ Anterior Bilateral Throughout] Pulse Rate [ From Monitor] Pulse Rate [ 96 H Left] Respiratory 16 Rate Respiratory Rate [Anterior Bilateral Throughout] Blood Pressure 127/70 127/70 112/70 O2 Sat by Pulse 98 98 94 Oximetry 02/01/21 02/02/21 02/02/21 23:10 00:00 01:00 Temperature 98.8 F Pulse Rate 93 H Pulse Rate [ Anterior Bilateral Throughout] Pulse Rate [ 96 H From Monitor] Pulse Rate [ 95 H 96 H Left] Respiratory 15 16 Rate Respiratory Rate [Anterior Bilateral Throughout] Blood Pressure 133/75 135/71 O2 Sat by Pulse 96 Oximetry 02/02/21 02/02/21 02/02/21 02:00 03:00 04:00 Temperature 98.2 F Pulse Rate Pulse Rate [ Anterior Bilateral Throughout] Pulse Rate [ From Monitor] Pulse Rate [ 93 H 92 H Left] Respiratory 20 24 Rate Respiratory Rate [Anterior Bilateral Throughout] Blood Pressure 132/71 124/69 O2 Sat by Pulse 95 Oximetry 02/02/21 02/02/21 02/02/21 04:30 05:00 06:00 Temperature Pulse Rate 87 Pulse Rate [ Anterior Bilateral Throughout] Pulse Rate [ 88 From Monitor] Pulse Rate [ 88 95 H Left] Respiratory 25 H 23 Rate Respiratory Rate [Anterior Bilateral Throughout] Blood Pressure 130/78 110/65 O2 Sat by Pulse 94 95 Oximetry 06/27/21 06/27/21 06/27/21 06:46 06:50 07:00 Temperature Pulse Rate 93 H 92 H 92 H Pulse Rate [ Anterior Bilateral Throughout] Pulse Rate [ From Monitor] Pulse Rate [ Left] Respiratory 20 20 23 Rate Respiratory Rate [Anterior Bilateral Throughout] Blood Pressure 118/69 O2 Sat by Pulse 94 94 94 Oximetry 02/02/21 02/02/21 02/02/21 07:10 07:23 07:27 Temperature 98.9 F Pulse Rate 85 Pulse Rate [ 86 Anterior Bilateral Throughout] Pulse Rate [ From Monitor] Pulse Rate [ Left] Respiratory 24 Rate Respiratory 18 Rate [Anterior Bilateral Throughout] Blood Pressure 118/69 O2 Sat by Pulse 96 96 Oximetry Constitutional: no acute distress, alert Eyes: non-icteric ENT: oropharynx moist, other (no jvd) Neck: supple, no JVD Ascultation: Bilateral: diminished breath sounds Cardiovascular: regular rate and rhythm Gastrointestinal: normoactive bowel sounds, soft, non-tender Extremities: edema CBC and BMP: 02/01/21 03:10 02/01/21 03:10 ABG, PT/INR, D-dimer: PT/INR, D-dimer D-Dimer 872.83 ng/mlDDU (0-234) H 02/01/21 04:47 Abnormal lab findings: Abnormal Labs 02/01/21 02/01/21 02/01/21 03:10 03:10 03:10 WBC 14.7 H Hct 35.2 L RDW 18.6 H Lymph % (Auto) 9.8 L [place] # (Auto) 1.1 H Eos # (Auto) 0.5 H Seg Neutrophils % 78.9 H Seg Neutrophils # 11.6 H D-Dimer Potassium 5.1 H Chloride 97.3 L Carbon Dioxide 31 H Creatinine 1.8 H Glucose 148 H POC Glucose Lactate Dehydrogenase 243 H Urine Creatinine Urine Total Protein 02/01/21 02/01/21 02/02/21 04:47 13:07 01:30 WBC Hct RDW Lymph % (Auto) [place] # (Auto) Eos # (Auto) Seg Neutrophils % Seg Neutrophils # D-Dimer 872.83 H Potassium Chloride Carbon Dioxide Creatinine Glucose POC Glucose 169 H Lactate Dehydrogenase Urine Creatinine 99.1 H Urine Total Protein 219 H 02/02/21 07:44 WBC Hct RDW Lymph % (Auto) [place] # (Auto) Eos # (Auto) Seg Neutrophils % Seg Neutrophils # D-Dimer Potassium Chloride Carbon Dioxide Creatinine Glucose POC Glucose 127 H Lactate Dehydrogenase Urine Creatinine Urine Total Protein Chest x-ray: report reviewed (improved), image reviewed
--- NOTE | 2021-02-02 09:37 | Progress Note ---
History Interval history: Acute hypoxic respiratory failure Sepsis. Present on admission. Patient meets criteria given the tachypnea, tachycardia, leukocytosis and diagnosis of pneumonia. Bilateral pneumonia COPD exacerbation Accelerated hypertension Acute kidney injury. 02/01/2021. Patient with acute respiratory failure likely secondary to bilateral pneumonia, COPD exacerbation and possibility of PE. Patient does have elevated D-dimer. Check VQ scan given the elevated creatinine. Doubt heart failure given the normal BNP and no evidence of pulmonary edema on x-ray. Follow-up echocardiogram and cardiology recommendations. Continue O2 supplementation and BiPAP as clinically indicated. Patient's creatinine is elevated at 1.8 and we do not have a baseline creatinine to compare. Check renal ultrasound and nephrology consultation pending. I suspect patient has CKD. Continue IV antibiotics and follow-up blood and sputum cultures. Pulmonary consultation 02/02/2021. Renal ultrasound shows echogenic kidneys characteristic for medical renal disease. Patient likely has CKD. Patient currently requiring high flow nasal cannula 30 L/min with an FiO2 of 60%. Continue IV antibiotics per ID recommendations for pneumonia. Covid PCR negative. Blood cultures negative. Follow-up procalcitonin. VQ scan pending. Hospitalist Physical - Constitutional Vitals: Temp Pulse Resp BP Pulse Ox 98.9 F 86 18 118/69 96 02/02/21 07:23 02/02/21 07:27 02/02/21 07:27 02/02/21 07:10 02/02/21 07:27 General appearance: Present: mild distress, well-nourished HEART Score - HEART Score Troponin: Troponin T < 0.010 ng/mL (0.00-0.029) 02/01/21 03:10 Results - Labs CBC & Chem 7: 02/01/21 03:10 02/01/21 03:10 Labs: Laboratory Last Values WBC 14.7 K/mm3 (4.5-11.0) H 02/01/21 03:10 RBC 4.08 M/mm3 (3.65-5.03) 02/01/21 03:10 Hgb 11.8 gm/dl (11.8-15.2) 02/01/21 03:10 Hct 35.2 % (35.5-45.6) L 02/01/21 03:10 MCV 86 fl (84-94) 02/01/21 03:10 MCH 29 pg (28-32) 02/01/21 03:10 MCHC 34 % (32-34) 02/01/21 03:10 RDW 18.6 % (13.2-15.2) H 02/01/21 03:10 Plt Count 313 K/mm3 (140-440) 02/01/21 03:10 Lymph % (Auto) 9.8 % (13.4-35.0) L 02/01/21 03:10 Luce % (Auto) 7.3 % (0.0-7.3) 02/01/21 03:10 Eos % (Auto) 3.3 % (0.0-4.3) 02/01/21 03:10 Baso % (Auto) 0.7 % (0.0-1.8) 02/01/21 03:10 Lymph # (Auto) 1.4 K/mm3 (1.2-5.4) 02/01/21 03:10 Luce # (Auto) 1.1 K/mm3 (0.0-0.8) H 02/01/21 03:10 Eos # (Auto) 0.5 K/mm3 (0.0-0.4) H 02/01/21 03:10 Baso # (Auto) 0.1 K/mm3 (0.0-0.1) 02/01/21 03:10 Seg Neutrophils % 78.9 % (40.0-70.0) H 02/01/21 03:10 Seg Neutrophils # 11.6 K/mm3 (1.8-7.7) H 02/01/21 03:10 D-Dimer 872.83 ng/mlDDU (0-234) H 02/01/21 04:47 Sodium 140 mmol/L (137-145) 02/01/21 03:10 Potassium 5.1 mmol/L (3.6-5.0) H 02/01/21 03:10 Chloride 97.3 mmol/L (98-107) L 02/01/21 03:10 Carbon Dioxide 31 mmol/L (22-30) H 02/01/21 03:10 Anion Gap 17 mmol/L 02/01/21 03:10 BUN 20 mg/dL (9-20) 02/01/21 03:10 Creatinine 1.8 mg/dL (0.8-1.3) H 02/01/21 03:10 Estimated GFR 45 ml/min 02/01/21 03:10 BUN/Creatinine Ratio 11 % 02/01/21 03:10 Glucose 148 mg/dL (75-100) H 02/01/21 03:10 POC Glucose 127 mg/dL (70-105) H 02/02/21 07:44 Lactic Acid 1.30 mmol/L (0.7-2.0) 02/01/21 09:30 Calcium 9.2 mg/dL (8.4-10.2) 02/01/21 03:10 Ferritin 166.6 ng/mL (30.0-300.0) 02/01/21 03:10 Total Bilirubin 0.40 mg/dL (0.1-1.2) 02/01/21 03:10 AST 22 units/L (5-40) 02/01/21 03:10 ALT 19 units/L (7-56) 02/01/21 03:10 Alkaline Phosphatase 116 units/L (35-129) 02/01/21 03:10 Lactate Dehydrogenase 243 units/L (91-180) H 02/01/21 03:10 Troponin T < 0.010 ng/mL (0.00-0.029) 02/01/21 03:10 C-Reactive Protein 1.10 mg/dL (0.00-1.30) 02/01/21 03:10 NT-Pro-B Natriuret Pep 397.4 pg/mL (0-900) 02/01/21 03:10 Total Protein 7.7 g/dL (6.3-8.2) 02/01/21 03:10 Albumin 4.4 g/dL (3.9-5) 02/01/21 03:10 Albumin/Globulin Ratio 1.3 % 02/01/21 03:10 Urine Color Yellow (Yellow) 02/02/21 01:30 Urine Turbidity Clear (Clear) 02/02/21 01:30 Urine pH 5.0 (5.0-7.0) 02/02/21 01:30 Ur Specific Thurman 1.012 (1.003-1.030) 02/02/21 01:30 Urine Protein >500 mg/dL (Negative) 02/02/21 01:30 Urine Glucose (UA) Neg mg/dL (Negative) 02/02/21 01:30 Urine Ketones Neg mg/dL (Negative) 02/02/21 01:30 Urine Blood Neg (Negative) 02/02/21 01:30 Urine Nitrite Neg (Negative) 02/02/21 01:30 Urine Bilirubin Neg (Negative) 02/02/21 01:30 Urine Urobilinogen < 2.0 mg/dL (<2.0) 02/02/21 01:30 Ur Leukocyte Esterase Neg (Negative) 02/02/21 01:30 Urine WBC (Auto) 2.0 /HPF (0.0-6.0) 02/02/21 01:30 Urine RBC (Auto) < 1.0 /HPF (0.0-6.0) 02/02/21 01:30 U Epithel Cells (Auto) < 1.0 /HPF (0-13.0) 02/02/21 01:30 Urine Bacteria (Auto) 1+ /HPF (Negative) 02/02/21 01:30 Urine Mucus Few /HPF 02/02/21 01:30 Urine Creatinine 99.1 mg/dL (0.1-20.0) H 02/02/21 01:30 Protein/Creatinin Ratio 2.21 02/02/21 01:30 Urine Sodium 44 mmol/L 02/02/21 01:30 Urine Total Protein 219 mg/dL (5-11.8) H 02/02/21 01:30 Coronavirus (PCR) Negative (Negative) 02/01/21 Unknown Microbiology: Microbiology 02/01/21 03:04 Peripheral/Venous Blood Culture - Preliminary NO GROWTH AFTER 24 HOURS 02/01/21 03:10 Peripheral/Venous Blood Culture - Preliminary NO GROWTH AFTER 24 HOURS Cornell/IV: Voiding Method Condom Catheter Active Medications - Current Medications Current Medications: Generic Name Dose Route Start Last Admin Trade Name Freq PRN Reason Stop Dose Admin Albuterol/Ipratropium 1 ampul 02/02/21 02:00 02/02/21 07:27 Ipratropium/Albuterol Sulfate 3 Ml Ampul.Neb IH 1 ampul Q6HRT REVA Administration Furosemide 40 mg 02/02/21 10:00 02/02/21 09:08 Furosemide 40 Mg/4 Ml Inj IV 40 mg QDAY REVA Administration Heparin Sodium (Porcine) 5,000 unit 02/01/21 06:00 02/02/21 05:14 Heparin 5,000 Unit/1 Ml Vial SUB-Q 5,000 unit Q8HR REVA Administration Hydralazine HCl 10 mg 02/01/21 06:21 Hydralazine 20 Mg/1 Ml Inj IV Q4HR PRN Blood Pressure Ceftriaxone Sodium 2 gm in 100 mls @ 200 mls/hr 02/02/21 04:00 02/02/21 04:15 Rocephin/Ns 2 Gm/100 Ml IV 200 mls/hr Q24H REVA Administration Protocol Azithromycin 500 mg in 250 mls @ 250 mls/hr 02/02/21 05:00 02/02/21 05:13 Zithromax/Ns IV 250 mls/hr Q24H REVA Administration Protocol Magnesium Hydroxide 30 ml 02/01/21 05:00 Magnesium Hydroxide (Mom) Oral Liqd Udc PO Q4H PRN Constipation Methylprednisolone Sodium Succinate 40 mg 02/01/21 06:00 02/02/21 05:14 Methylprednisolone Sod Succinate 40 Mg/1 Ml Inj IV 40 mg Q8HR REVA Administration Morphine Sulfate 2 mg 02/01/21 05:00 Morphine 2 Mg/1 Ml Inj IV Q4H PRN Pain, Moderate (4-6) Ondansetron HCl 4 mg 02/01/21 05:00 Ondansetron 4 Mg/2 Ml Inj IV Q8H PRN Nausea And Vomiting Sodium Chloride 10 ml 02/01/21 10:00 02/02/21 09:08 Sodium Chloride 0.9% 10 Ml Flush Syringe IV 10 ml BID REVA Administration Sodium Chloride 10 ml 02/01/21 05:00 Sodium Chloride 0.9% 10 Ml Flush Syringe IV PRN PRN LINE FLUSH Nutrition/Malnutrition Assess - Dietary Evaluation Nutrition/Malnutrition Findings: Nutrition Notes Start: 02/01/21 12:20 Freq: Status: Active Protocol: Document 02/01/21 12:20 CW (Rec: 02/01/21 12:21 CW [id number]) Nutrition Notes Need for Assessment generated from: MD Order,Education Initial or Follow up Brief Note Subjective/Other Information MD consult for diet education. Pt on hold in ED. Nutrition Intervention Follow-Up By: 02/03/21 Additional Comments F/U for diet education
[2021-02-02 09:54] LABS: Hematocrit 33.9 % (35.5-45.6); Hemoglobin 10.8 gm/dl (11.8-15.2); Mean Corpuscular HGB Conc 32 % (32-34); Mean Corpuscular Volume 90 fl (84-94); Platelet Count 251 K/mm3 (140-440); Red Blood Count 3.79 M/mm3 (3.65-5.03); Red Cell Distribution Width 19.1 % (13.2-15.2)
[2021-02-02 10:04] LABS: INR 1.05 (0.87-1.13)
[2021-02-02 10:39] LABS: Calcium 8.8 mg/dL (8.4-10.2)
[2021-02-02 11:15] LABS: Band Neutrophils # (Manual) 0.1 K/mm3; Total Cells Counted 100
[2021-02-02 11:16] LABS: Anisocytosis 1+
[2021-02-02 11:17] LABS: Hypochromasia Few; Poikilocytosis Few
--- NOTE | 2021-02-02 12:57 | Consultation ---
History of Present Illness Consult date: 02/02/21 Consult reason: shortness of breath History of present illness: 70-year-old male past medical historyhypertension, CHF, COPD presented to hospital complaining shortness of breath. This began approximately 3 days prior to admission and was nonresponsive to his nebulizer treatments. He complains of associated lower extremity swelling. He otherwise denies symptoms. He reports receiving his COVID-19 vaccine at the [facility]. Otherwise no acute issues. His BNP is normal and chest Xray is suggestive of bilateral pneumonia. ECG reveals sinus rhythm and is otherwise unremarkable. Past History Past Medical History: COPD, heart failure, hypertension Past Surgical History: No surgical history Social history: smoking (Patient is a former smoker) Family history: no significant family history Medications and Allergies Allergies Allergy/AdvReac Type Severity Reaction Status Date / Time shellfish derived Allergy Itching Verified 02/01/21 03:16 Home Medications Medication Instructions Recorded Confirmed Last Taken Type AtorvaSTATin [Lipitor] 40 mg PO QHS 02/02/21 02/02/21 01/31/21 History Cholecalciferol Vit D3 [Vitamin D3 1,000 unit PO QDAY 02/02/21 02/02/21 01/31/21 History 1,000 UNIT TAB] Furosemide [Lasix] 40 mg PO QDAY 02/02/21 02/02/21 01/31/21 History amLODIPine [Norvasc] 10 mg PO DAILY 02/02/21 02/02/21 01/31/21 History carvediloL [Coreg] 25 mg PO BID 02/02/21 02/02/21 01/31/21 History metFORMIN [Glucophage] 500 mg PO QDAY 02/02/21 02/02/21 01/31/21 History Active Meds: Active Medications Albuterol/Ipratropium (Ipratropium/Albuterol Sulfate 3 Ml Ampul.Neb) 1 ampul IH Q6HRT [facility] Last Admin: 02/02/21 07:27 Dose: 1 ampul Documented by: Furosemide (Furosemide 40 Mg/4 Ml Inj) 40 mg IV QDAY [facility] Last Admin: 02/02/21 09:08 Dose: 40 mg Documented by: Heparin Sodium (Porcine) (Heparin 5,000 Unit/1 Ml Vial) 5,000 unit SUB-Q Q8HR [facility] Last Admin: 02/02/21 05:14 Dose: 5,000 unit Documented by: Hydralazine HCl (Hydralazine 20 Mg/1 Ml Inj) 10 mg IV Q4HR PRN PRN Reason: Blood Pressure Ceftriaxone Sodium (Rocephin/Ns 2 Gm/100 Ml) 2 gm in 100 mls @ 200 mls/hr IV Q 24H [facility]; Protocol Last Admin: 02/02/21 04:15 Dose: 200 mls/hr Documented by: Azithromycin (Zithromax/Ns) 500 mg in 250 mls @ 250 mls/hr IV Q24H [facility]; Protocol Last Admin: 02/02/21 05:13 Dose: 250 mls/hr Documented by: Magnesium Hydroxide (Magnesium Hydroxide (Mom) Oral Liqd Udc) 30 ml PO Q4H PRN PRN Reason: Constipation Methylprednisolone Sodium Succinate (Methylprednisolone Sod Succinate 40 Mg/1 Ml Inj) 40 mg IV Q8HR [facility] Last Admin: 02/02/21 05:14 Dose: 40 mg Documented by: Morphine Sulfate (Morphine 2 Mg/1 Ml Inj) 2 mg IV Q4H PRN PRN Reason: Pain, Moderate (4-6) Ondansetron HCl (Ondansetron 4 Mg/2 Ml Inj) 4 mg IV Q8H PRN PRN Reason: Nausea And Vomiting Sodium Chloride (Sodium Chloride 0.9% 10 Ml Flush Syringe) 10 ml IV BID [facility] Last Admin: 02/02/21 09:08 Dose: 10 ml Documented by: Sodium Chloride (Sodium Chloride 0.9% 10 Ml Flush Syringe) 10 ml IV PRN PRN PRN Reason: LINE FLUSH Review of Systems All systems: negative (per hpi) Physical Examination Vital Signs Temp Pulse BP 97 F L 97 H 162/88 02/01/21 02:53 02/01/21 02:53 02/01/21 02:53 Neck: Positive: neck supple. Negative: JVD/HJR Cardiac: Positive: Reg Rate and Rhythm Lungs: Positive: Decreased Breath Sounds, Rhonchi Abdomen: Positive: Soft, Active Bowel Sounds Extremities: Present: +1 Edema Results 02/02/21 09:34 02/02/21 09:34 Coagulation 02/02/21 Range/Units 09:34 PT 14.3 (12.2-14.9) Sec. INR 1.05 (0.87-1.13) CBC 02/02/21 Range/Units 09:34 WBC 14.6 H (4.5-11.0) K/mm3 RBC 3.79 (3.65-5.03) M/mm3 Hgb 10.8 L (11.8-15.2) gm/dl Hct 33.9 L (35.5-45.6) % Plt Count 251 (140-440) K/mm3 Comprehensive Metabolic Panel 02/02/21 Range/Units 09:34 Sodium 141 (137-145) mmol/L Potassium 4.9 (3.6-5.0) mmol/L Chloride 100.7 (98-107) mmol/L Carbon Dioxide 34 H (22-30) mmol/L BUN 29 H (9-20) mg/dL Creatinine 1.8 H (0.8-1.3) mg/dL Glucose 168 H (75-100) mg/dL Calcium 8.8 (8.4-10.2) mg/dL Assessment and Plan Dyspnea related to COPD exacerbation and/or pneumonia COPD with exacerbation Pneumonia Htn Recommend: Doubt significant component of decompensated heart failure Check Echo Continue current medical therapy
--- NOTE | 2021-02-02 13:15 | Electrocardiograph Report ---
[facility] Test Date: 2021-02-01 Test Time: 04:59:40 Pat Name: ELLA POLANCO Department: Room: A264 Gender: M [employer] Teacher: TAZ : 1950 Requested By: CJ GARCÍA Order Number: [id number] Reading MD: Deric Romo Measurements Intervals [place] Rate: 85 P: 49 MA: 153 QRS: 48 QRSD: 87 T: 68 QT: 368 QTc: 439 Interpretive Statements Sinus rhythm No previous ECG available for comparison Electronically Signed On 02-02-2021 13:15:22 EDT by Deric Romo
--- NOTE | 2021-02-02 16:49 | Progress Note ---
Assessment and Plan Impression: * Acute kidney injury vs underlying CKD * Acute hypoxic respiratory failure secondary to pulmonary edema vs infectious etilogy vs COPD exacerbation --COVID 19 negative * Congestive heart failure * Hypertension * Proteinuria - UPCR 2.2grams Plan: * No acute indication for renal replacement therapy. Renal function is stable. Patient likely has underlying CKD * Continue IV diuresis * Serologic work up pending * Renal u/s reviewed - right 10.9cm, left 10cm; echogenic kidneys * TTE pending * Abx/steroids per pulmonary medicine * Strict I/O * Avoid potential nephrotoxins * Dose medications for renal function * AM labs Subjective Date of service: 02/02/21 Interval history: Reports breathing is better. He is currently on high flow oxygen Objective - Vital Signs Vital signs: Vital Signs - 12hr 02/02/21 02/02/21 02/02/21 05:00 06:00 06:46 Temperature Pulse Rate 93 H Pulse Rate [ Anterior Bilateral Throughout] Pulse Rate [ 88 From Monitor] Pulse Rate [ 88 95 H Left] Respiratory 25 H 23 20 Rate Respiratory Rate [Anterior Bilateral Throughout] Blood Pressure 130/78 110/65 O2 Sat by Pulse 94 95 94 Oximetry 02/02/21 02/02/21 02/02/21 06:50 07:00 07:10 Temperature Pulse Rate 92 H 92 H 85 Pulse Rate [ Anterior Bilateral Throughout] Pulse Rate [ From Monitor] Pulse Rate [ Left] Respiratory 20 23 24 Rate Respiratory Rate [Anterior Bilateral Throughout] Blood Pressure 118/69 118/69 O2 Sat by Pulse 94 94 96 Oximetry 02/02/21 02/02/21 02/02/21 07:23 07:27 08:00 Temperature 98.9 F Pulse Rate 84 Pulse Rate [ 86 Anterior Bilateral Throughout] Pulse Rate [ From Monitor] Pulse Rate [ Left] Respiratory 26 H Rate Respiratory 18 Rate [Anterior Bilateral Throughout] Blood Pressure 118/68 O2 Sat by Pulse 96 96 Oximetry 02/02/21 02/02/21 02/02/21 09:00 10:00 11:00 Temperature Pulse Rate 84 87 87 Pulse Rate [ Anterior Bilateral Throughout] Pulse Rate [ 84 From Monitor] Pulse Rate [ Left] Respiratory 19 17 21 Rate Respiratory Rate [Anterior Bilateral Throughout] Blood Pressure 135/72 122/63 132/70 O2 Sat by Pulse 95 95 Oximetry 02/02/21 02/02/21 02/02/21 11:48 12:00 13:00 Temperature 98.9 F Pulse Rate 86 92 H Pulse Rate [ Anterior Bilateral Throughout] Pulse Rate [ 87 From Monitor] Pulse Rate [ Left] Respiratory 15 22 Rate Respiratory Rate [Anterior Bilateral Throughout] Blood Pressure 126/68 135/72 O2 Sat by Pulse 94 Oximetry 02/02/21 02/02/21 02/02/21 13:14 13:52 14:00 Temperature Pulse Rate 87 82 Pulse Rate [ 86 Anterior Bilateral Throughout] Pulse Rate [ From Monitor] Pulse Rate [ Left] Respiratory 17 Rate Respiratory 18 Rate [Anterior Bilateral Throughout] Blood Pressure 129/69 O2 Sat by Pulse 96 96 Oximetry 02/02/21 02/02/21 15:00 16:00 Temperature 98.2 F Pulse Rate 86 Pulse Rate [ Anterior Bilateral Throughout] Pulse Rate [ From Monitor] Pulse Rate [ Left] Respiratory 16 Rate Respiratory Rate [Anterior Bilateral Throughout] Blood Pressure 125/70 O2 Sat by Pulse 94 Oximetry - General Appearance General appearance: well-developed, well-nourished EENT: ATNC Respiratory: Present: Decreased Breath Sounds Cardiology: regular, S1S2 Gastrointestinal: normal, no tenderness, no distended Integumentary: no rash, warm and dry Neurologic: no focal deficit, alert and oriented x3 Musculoskeletal: no deformities, no erythema, no cyanosis, no clubbing Psychiatric: cooperative - Lab 02/02/21 09:34 02/02/21 09:34 Most recent lab results Calcium 8.8 mg/dL (8.4-10.2) 02/02/21 09:34 Urine Creatinine 99.1 mg/dL (0.1-20.0) H 02/02/21 01:30 Urine Sodium 44 mmol/L 02/02/21 01:30 Urine Total Protein 219 mg/dL (5-11.8) H 02/02/21 01:30 Medications & Allergies - Medications Allergies/Adverse Reactions: Allergies shellfish derived Allergy (Verified 02/01/21 03:16) Itching Home Medications: Home Medications Medication Instructions Recorded Confirmed Last Taken Type AtorvaSTATin [Lipitor] 40 mg PO QHS 02/02/21 02/02/21 01/31/21 History Cholecalciferol Vit D3 [Vitamin D3 1,000 unit PO QDAY 02/02/21 02/02/21 01/31/21 History 1,000 UNIT TAB] Furosemide [Lasix] 40 mg PO QDAY 02/02/21 02/02/21 01/31/21 History amLODIPine [Norvasc] 10 mg PO DAILY 02/02/21 02/02/21 01/31/21 History carvediloL [Coreg] 25 mg PO BID 02/02/21 02/02/21 01/31/21 History metFORMIN [Glucophage] 500 mg PO QDAY 02/02/21 02/02/21 01/31/21 History Active Medications: Generic Name Dose Route Start Last Admin Trade Name Freq PRN Reason Stop Dose Admin Albuterol/Ipratropium 1 ampul 02/02/21 02:00 02/02/21 13:14 Ipratropium/Albuterol Sulfate 3 Ml Ampul.Neb IH 1 ampul Q6HRT REVA Administration Furosemide 40 mg 02/02/21 10:00 02/02/21 09:08 Furosemide 40 Mg/4 Ml Inj IV 40 mg QDAY REVA Administration Heparin Sodium (Porcine) 5,000 unit 02/01/21 06:00 02/02/21 14:06 Heparin 5,000 Unit/1 Ml Vial SUB-Q 5,000 unit Q8HR REVA Administration Hydralazine HCl 10 mg 02/01/21 06:21 Hydralazine 20 Mg/1 Ml Inj IV Q4HR PRN Blood Pressure Ceftriaxone Sodium 2 gm in 100 mls @ 200 mls/hr 02/02/21 04:00 02/02/21 04:15 Rocephin/Ns 2 Gm/100 Ml IV 200 mls/hr Q24H REVA Administration Protocol Azithromycin 500 mg in 250 mls @ 250 mls/hr 02/02/21 05:00 02/02/21 05:13 Zithromax/Ns IV 250 mls/hr Q24H REVA Administration Protocol Magnesium Hydroxide 30 ml 02/01/21 05:00 Magnesium Hydroxide (Mom) Oral Liqd Udc PO Q4H PRN Constipation Methylprednisolone Sodium Succinate 40 mg 02/01/21 06:00 02/02/21 14:06 Methylprednisolone Sod Succinate 40 Mg/1 Ml Inj IV 40 mg Q8HR REVA Administration Morphine Sulfate 2 mg 02/01/21 05:00 Morphine 2 Mg/1 Ml Inj IV Q4H PRN Pain, Moderate (4-6) Ondansetron HCl 4 mg 02/01/21 05:00 Ondansetron 4 Mg/2 Ml Inj IV Q8H PRN Nausea And Vomiting Sodium Chloride 10 ml 02/01/21 10:00 02/02/21 09:08 Sodium Chloride 0.9% 10 Ml Flush Syringe IV 10 ml BID REVA Administration Sodium Chloride 10 ml 02/01/21 05:00 Sodium Chloride 0.9% 10 Ml Flush Syringe IV PRN PRN LINE FLUSH
[2021-02-02] MEDS ORDERED: METOCLOPRAMIDE 10 MG/2 ML INJ IV ONE (22:59)
[2021-02-03] MEDS: IPRATROPIUM/ALBUTEROL SULFATE 3 ML AMPUL.NEB IH SCH ×4 (01:26→20:12)
[2021-02-03] MEDS: cefTRIAXone/NS 2 GM/100 ML 2 GM/100 ML BAG IV SCH (04:05)
[2021-02-03] MEDS: AZITHROMYCIN/NS 500 MG/250 ML 500 MG/250 ML BAG IV SCH (04:19)
[2021-02-03 04:48] LABS: Hemoglobin 10.6 gm/dl (11.8-15.2); Mean Corpuscular HGB Conc 31 % (32-34); Mean Corpuscular Volume 90 fl (84-94); Platelet Count 249 K/mm3 (140-440); Red Blood Count 3.79 M/mm3 (3.65-5.03); Red Cell Distribution Width 19.1 % (13.2-15.2)
[2021-02-03 05:10] LABS: Calcium 9.2 mg/dL (8.4-10.2)
[2021-02-03] MEDS: methylPREDNISolone Sod Succinate 40 MG/1 ML INJ IV SCH ×3 (05:39→21:49)
[2021-02-03] MEDS: HEPARIN 5,000 UNIT/1 ML VIAL SUB-Q SCH ×3 (05:39→21:46)
[2021-02-03 06:49] LABS: Total Cells Counted 100
[2021-02-03 06:50] LABS: Anisocytosis 1+
[2021-02-03 06:52] LABS: Platelet Estimate Consistent w Auto
--- NOTE | 2021-02-03 07:47 | Progress Note ---
History Interval history: Acute hypoxic respiratory failure Sepsis. Present on admission. Patient meets criteria given the tachypnea, tachycardia, leukocytosis and diagnosis of pneumonia. Bilateral pneumonia COPD exacerbation Accelerated hypertension Acute kidney injury. Hyperkalemia 02/01/2021. Patient with acute respiratory failure likely secondary to bilateral pneumonia, COPD exacerbation and possibility of PE. Patient does have elevated D-dimer. Check VQ scan given the elevated creatinine. Doubt heart failure given the normal BNP and no evidence of pulmonary edema on x-ray. Follow-up echocardiogram and cardiology recommendations. Continue O2 supplementation and BiPAP as clinically indicated. Patient's creatinine is elevated at 1.8 and we do not have a baseline creatinine to compare. Check renal ultrasound and neph rology consultation pending. I suspect patient has CKD. Continue IV antibiotics and follow-up blood and sputum cultures. Pulmonary consultation 02/02/2021. Renal ultrasound shows echogenic kidneys characteristic for medical renal disease. Patient likely has CKD. Patient currently requiring high flow nasal cannula 30 L/min with an FiO2 of 60%. Continue IV antibiotics per ID recommendations for pneumonia. Covid PCR negative. Blood cultures negative. Follow-up procalcitonin. VQ scan pending. 02/03/2021. Patient with high flow nasal cannula 20 L/min with an FiO2 of 40%. Continue to wean FiO2 as tolerated. Nephrology recommends no acute indication for renal replacement therapy. Continue IV diuresis. Serologic work-up pending. Renal ultrasound as noted above. Echocardiogram pending. Continue bronchodilators/nebulizers, IV steroids and IV antibiotics. Give Kayexalate 60 g x 1 for hyperkalemia. Nephrology following. Hospitalist Physical - Constitutional Vitals: Temp Pulse Resp BP Pulse Ox 98.5 F 73 22 131/72 96 02/03/21 03:55 02/03/21 07:29 02/03/21 07:13 02/03/21 07:13 02/03/21 07:13 General appearance: Present: mild distress, well-nourished HEART Score - HEART Score Troponin: Troponin T < 0.010 ng/mL (0.00-0.029) 02/01/21 03:10 Results - Labs CBC & Chem 7: 02/03/21 04:14 02/03/21 04:14 Labs: Laboratory Last Values WBC 16.2 K/mm3 (4.5-11.0) H 02/03/21 04:14 RBC 3.79 M/mm3 (3.65-5.03) 02/03/21 04:14 Hgb 10.6 gm/dl (11.8-15.2) L 02/03/21 04:14 Hct 34.0 % (35.5-45.6) L 02/03/21 04:14 MCV 90 fl (84-94) 02/03/21 04:14 MCH 28 pg (28-32) 02/03/21 04:14 MCHC 31 % (32-34) L 02/03/21 04:14 RDW 19.1 % (13.2-15.2) H 02/03/21 04:14 Plt Count 249 K/mm3 (140-440) 02/03/21 04:14 Lymph % (Auto) 9.8 % (13.4-35.0) L 02/01/21 03:10 [place] % (Auto) 7.3 % (0.0-7.3) 02/01/21 03:10 Eos % (Auto) 3.3 % (0.0-4.3) 02/01/21 03:10 Baso % (Auto) 0.7 % (0.0-1.8) 02/01/21 03:10 Lymph # (Auto) 1.4 K/mm3 (1.2-5.4) 02/01/21 03:10 [place] # (Auto) 1.1 K/mm3 (0.0-0.8) H 02/01/21 03:10 Eos # (Auto) 0.5 K/mm3 (0.0-0.4) H 02/01/21 03:10 Baso # (Auto) 0.1 K/mm3 (0.0-0.1) 02/01/21 03:10 Add Manual Diff Complete 02/03/21 04:14 Total Counted 100 02/03/21 04:14 Seg Neutrophils % Head Scorer 02/03/21 04:14 Seg Neuts % (Manual) 96.0 % (40.0-70.0) H 02/03/21 04:14 Band Neutrophils % 1.0 % 02/02/21 09:34 Lymphocytes % (Manual) 2.0 % (13.4-35.0) L 02/03/21 04:14 Monocytes % (Manual) 2.0 % (0.0-7.3) 02/03/21 04:14 Nucleated RBC % Not Reportable 02/03/21 04:14 Seg Neutrophils # 11.6 K/mm3 (1.8-7.7) H 02/01/21 03:10 Seg Neutrophils # Man 15.6 K/mm3 (1.8-7.7) H 02/03/21 04:14 Band Neutrophils # 0.0 K/mm3 02/03/21 04:14 Lymphocytes # (Manual) 0.3 K/mm3 (1.2-5.4) L 02/03/21 04:14 Abs React Lymphs (Man) 0.0 K/mm3 02/03/21 04:14 Monocytes # (Manual) 0.3 K/mm3 (0.0-0.8) 02/03/21 04:14 Eosinophils # (Manual) 0.0 K/mm3 (0.0-0.4) 02/03/21 04:14 Basophils # (Manual) 0.0 K/mm3 (0.0-0.1) 02/03/21 04:14 Metamyelocytes # 0.0 K/mm3 02/03/21 04:14 Myelocytes # 0.0 K/mm3 02/03/21 04:14 Promyelocytes # 0.0 K/mm3 02/03/21 04:14 Blast Cells # 0.0 K/mm3 02/03/21 04:14 WBC Morphology Not Reportable 02/03/21 04:14 Hypersegmented Neuts Not Reportable 02/03/21 04:14 Hyposegmented Neuts Not Reportable 02/03/21 04:14 Hypogranular Neuts Not Reportable 02/03/21 04:14 Smudge Cells Not Reportable 02/03/21 04:14 Toxic Granulation Not Reportable 02/03/21 04:14 Toxic Vacuolation Not Reportable 02/03/21 04:14 Dohle Bodies Not Reportable 02/03/21 04:14 Pelger-Huet Anomaly Not Reportable 02/03/21 04:14 Edgar Rods Not Reportable 02/03/21 04:14 Platelet Estimate Consistent w auto 02/03/21 04:14 Clumped Platelets Not Reportable 02/03/21 04:14 Plt Clumps, EDTA Not Reportable 02/03/21 04:14 Large Platelets Not Reportable 02/03/21 04:14 Giant Platelets Not Reportable 02/03/21 04:14 Platelet Satelliting Not Reportable 02/03/21 04:14 Plt Morphology Comment Not Reportable 02/03/21 04:14 RBC Morphology Not Reportable 02/03/21 04:14 Dimorphic RBCs Not Reportable 02/03/21 04:14 Polychromasia Not Reportable 02/03/21 04:14 Hypochromasia Not Reportable 02/03/21 04:14 Poikilocytosis Not Reportable 02/03/21 04:14 Anisocytosis 1+ 02/03/21 04:14 Microcytosis Not Reportable 02/03/21 04:14 Macrocytosis Not Reportable 02/03/21 04:14 Spherocytes Not Reportable 02/03/21 04:14 Pappenheimer Bodies Not Reportable 02/03/21 04:14 Sickle Cells Not Reportable 02/03/21 04:14 Target Cells Not Reportable 02/03/21 04:14 Tear Drop Cells Not Reportable 02/03/21 04:14 Ovalocytes Not Reportable 02/03/21 04:14 Helmet Cells Not Reportable 02/03/21 04:14 [place] Bodies Not Reportable 02/03/21 04:14 [place] Rings Not Reportable 02/03/21 04:14 [place] Cells Not Reportable 02/03/21 04:14 Bite Cells Not Reportable 02/03/21 04:14 Crenated Cell Not Reportable 02/03/21 04:14 Elliptocytes Not Reportable 02/03/21 04:14 Acanthocytes (Spur) Not Reportable 02/03/21 04:14 Rouleaux Not Reportable 02/03/21 04:14 Hemoglobin C Crystals Not Reportable 02/03/21 04:14 Schistocytes Not Reportable 02/03/21 04:14 Malaria parasites Not Reportable 02/03/21 04:14 Declan Bodies Not Reportable 02/03/21 04:14 Hem Pathologist Commnt No 02/03/21 04:14 PT 14.3 Sec. (12.2-14.9) 02/02/21 09:34 INR 1.05 (0.87-1.13) 02/02/21 09:34 D-Dimer 872.83 ng/mlDDU (0-234) H 02/01/21 04:47 Sodium 143 mmol/L (137-145) 02/03/21 04:14 Potassium 5.7 mmol/L (3.6-5.0) H 02/03/21 04:14 Chloride 101.8 mmol/L (98-107) 02/03/21 04:14 Carbon Dioxide 37 mmol/L (22-30) H 02/03/21 04:14 Anion Gap 10 mmol/L 02/03/21 04:14 BUN 36 mg/dL (9-20) H 02/03/21 04:14 Creatinine 1.7 mg/dL (0.8-1.3) H 02/03/21 04:14 Estimated GFR 48 ml/min 02/03/21 04:14 BUN/Creatinine Ratio 21 % 02/03/21 04:14 Glucose 151 mg/dL (75-100) H 02/03/21 04:14 POC Glucose 141 mg/dL (70-105) H 02/03/21 07:37 Lactic Acid 1.30 mmol/L (0.7-2.0) 02/01/21 09:30 Calcium 9.2 mg/dL (8.4-10.2) 02/03/21 04:14 Ferritin 166.6 ng/mL (30.0-300.0) 02/01/21 03:10 Total Bilirubin 0.40 mg/dL (0.1-1.2) 02/01/21 03:10 AST 22 units/L (5-40) 02/01/21 03:10 ALT 19 units/L (7-56) 02/01/21 03:10 Alkaline Phosphatase 116 units/L (35-129) 02/01/21 03:10 Lactate Dehydrogenase 243 units/L (91-180) H 02/01/21 03:10 Troponin T < 0.010 ng/mL (0.00-0.029) 02/01/21 03:10 C-Reactive Protein 1.10 mg/dL (0.00-1.30) 02/01/21 03:10 NT-Pro-B Natriuret Pep 397.4 pg/mL (0-900) 02/01/21 03:10 Total Protein 7.7 g/dL (6.3-8.2) 02/01/21 03:10 Albumin 4.4 g/dL (3.9-5) 02/01/21 03:10 Albumin/Globulin Ratio 1.3 % 02/01/21 03:10 Procalcitonin 0.08 ng/mL (<0.15) 02/01/21 03:10 Urine Color Yellow (Yellow) 02/02/21 01:30 Urine Turbidity Clear (Clear) 02/02/21 01:30 Urine pH 5.0 (5.0-7.0) 02/02/21 01:30 Ur Specific [place] 1.012 (1.003-1.030) 02/02/21 01:30 Urine Protein >500 mg/dL (Negative) 02/02/21 01:30 Urine Glucose (UA) Neg mg/dL (Negative) 02/02/21 01:30 Urine Ketones Neg mg/dL (Negative) 02/02/21 01:30 Urine Blood Neg (Negative) 02/02/21 01:30 Urine Nitrite Neg (Negative) 02/02/21 01:30 Urine Bilirubin Neg (Negative) 02/02/21 01:30 Urine Urobilinogen < 2.0 mg/dL (<2.0) 02/02/21 01:30 Ur Leukocyte Esterase Neg (Negative) 02/02/21 01:30 Urine WBC (Auto) 2.0 /HPF (0.0-6.0) 02/02/21 01:30 Urine RBC (Auto) < 1.0 /HPF (0.0-6.0) 02/02/21 01:30 U Epithel Cells (Auto) < 1.0 /HPF (0-13.0) 02/02/21 01:30 Urine Bacteria (Auto) 1+ /HPF (Negative) 02/02/21 01:30 Urine Mucus Few /HPF 02/02/21 01:30 Urine Creatinine 99.1 mg/dL (0.1-20.0) H 02/02/21 01:30 Protein/Creatinin Ratio 2.21 02/02/21 01:30 Urine Sodium 44 mmol/L 02/02/21 01:30 Urine Total Protein 219 mg/dL (5-11.8) H 02/02/21 01:30 Coronavirus (PCR) Negative (Negative) 02/01/21 Unknown Microbiology: Microbiology 02/01/21 03:04 Peripheral/Venous Blood Culture - Preliminary NO GROWTH AFTER 24 HOURS 02/01/21 03:10 Peripheral/Venous Blood Culture - Preliminary NO GROWTH AFTER 24 HOURS [place]/IV: Voiding Method Urinal Active Medications - Current Medications Current Medications: Generic Name Dose Route Start Last Admin Trade Name Freq PRN Reason Stop Dose Admin Albuterol/Ipratropium 1 ampul 02/02/21 02:00 02/03/21 07:13 Ipratropium/Albuterol Sulfate 3 Ml Ampul.Neb IH 1 ampul Q6HRT REVA Administration Furosemide 40 mg 02/02/21 10:00 02/02/21 09:08 Furosemide 40 Mg/4 Ml Inj IV 40 mg QDAY REVA Administration Heparin Sodium (Porcine) 5,000 unit 02/01/21 06:00 02/03/21 05:39 Heparin 5,000 Unit/1 Ml Vial SUB-Q 5,000 unit Q8HR REVA Administration Hydralazine HCl 10 mg 02/01/21 06:21 Hydralazine 20 Mg/1 Ml Inj IV Q4HR PRN Blood Pressure Ceftriaxone Sodium 2 gm in 100 mls @ 200 mls/hr 02/02/21 04:00 02/03/21 04:05 Rocephin/Ns 2 Gm/100 Ml IV 200 mls/hr Q24H REVA Administration Protocol Azithromycin 500 mg in 250 mls @ 250 mls/hr 02/02/21 05:00 02/03/21 04:19 Zithromax/Ns IV 250 mls/hr Q24H REVA Administration Protocol Magnesium Hydroxide 30 ml 02/01/21 05:00 Magnesium Hydroxide (Mom) Oral Liqd Udc PO Q4H PRN Constipation Methylprednisolone Sodium Succinate 40 mg 02/01/21 06:00 02/03/21 05:39 Methylprednisolone Sod Succinate 40 Mg/1 Ml Inj IV 40 mg Q8HR REVA Administration Morphine Sulfate 2 mg 02/01/21 05:00 Morphine 2 Mg/1 Ml Inj IV Q4H PRN Pain, Moderate (4-6) Ondansetron HCl 4 mg 02/01/21 05:00 Ondansetron 4 Mg/2 Ml Inj IV Q8H PRN Nausea And Vomiting Sodium Chloride 10 ml 02/01/21 10:00 02/02/21 21:40 Sodium Chloride 0.9% 10 Ml Flush Syringe IV 10 ml BID REVA Administration Sodium Chloride 10 ml 02/01/21 05:00 Sodium Chloride 0.9% 10 Ml Flush Syringe IV PRN PRN LINE FLUSH Nutrition/Malnutrition Assess - Dietary Evaluation Nutrition/Malnutrition Findings: Nutrition Notes Start: 02/01/21 12:20 Freq: Status: Active Protocol: Document 02/01/21 12:20 CW (Rec: 02/01/21 12:21 CW [id number]) Nutrition Notes Need for Assessment generated from: MD Order,Education Initial or Follow up Brief Note Subjective/Other Information MD consult for diet education. Pt on hold in ED. Nutrition Intervention Follow-Up By: 02/03/21 Additional Comments F/U for diet education
[2021-02-03] MEDS ORDERED: SODIUM POLYSTYRENE 15 GM/60 ML ORAL LIQD PO ONE (09:00)
--- NOTE | 2021-02-03 09:08 | XRay Report ---
CHEST 1 VIEW INDICATION / CLINICAL INFORMATION: Pneumonia. COMPARISON: 02/02/2021 FINDINGS: SUPPORT DEVICES: None. HEART / MEDIASTINUM: No significant abnormality. LUNGS / PLEURA: Bilateral airspace disease No pneumothorax. ADDITIONAL FINDINGS: No significant additional findings. IMPRESSION: Bilateral airspace disease unchanged from yesterday Signer Name: Raphael Morel MD FACR Signed: 02/03/2021 9:04 AM Workstation Name: [id number]
[2021-02-03] MEDS: FUROSEMIDE 40 MG/4 ML INJ IV SCH (09:49)
--- NOTE | 2021-02-03 10:07 | Progress Note ---
Assessment and Plan - Patient Problems (1) Shortness of breath Current Visit: Yes Status: Acute Plan to address problem: Patient hospitalized with shortness of breath and bilateral pneumonia. Continue management. Subjective Date of service: 02/03/21 Interval history: Patient is sitting up in his bed, on the stepdown unit, comfortable with no chest pain and no acute shortness of breath. He has a sinus rhythm at 95, stable blood pressure. He presented with shortness of breath and bilateral severe infiltrates on the chest x-ray consistent with bilateral pneumonia. COVID-19 serology was negative. He is responding clinically to pneumonia management. Cardiac work-up here so far, ECG was normal sinus rhythm, normal ECG. Echocardiogram showed well-preserved left ventricular systolic function with ejection fraction 50 to 55%. There was mild prominence of the right heart chambers and mild to moderate pulmonary hypertension with pulmonary artery systolic pressures of 46. Objective Vital Signs Temp Pulse Pulse Pulse Resp Resp Resp 02/03/21 07:29 73 02/03/21 07:13 68 71 28 H 22 02/03/21 07:00 66 20 02/03/21 06:00 69 20 02/03/21 05:22 71 20 02/03/21 05:00 73 15 02/03/21 04:00 58 L 58 L 18 02/03/21 03:55 98.5 F 02/03/21 03:00 64 18 02/03/21 02:00 74 16 02/03/21 01:24 71 18 18 02/03/21 01:00 75 19 02/03/21 00:20 77 18 02/03/21 00:10 83 02/03/21 00:00 98.2 F 84 18 02/02/21 23:34 79 18 02/02/21 23:00 85 17 02/02/21 22:00 83 83 22 02/02/21 21:00 84 13 02/02/21 20:30 89 18 02/02/21 20:00 98.4 F 87 17 02/02/21 19:20 90 02/02/21 19:00 87 25 H 02/02/21 18:00 89 15 02/02/21 17:00 83 81 17 02/02/21 16:00 98.2 F 85 19 02/02/21 15:00 86 16 02/02/21 14:00 82 17 02/02/21 13:52 87 02/02/21 13:14 86 18 02/02/21 13:00 92 H 87 22 02/02/21 12:00 86 15 02/02/21 11:48 98.9 F 02/02/21 11:00 87 21 BP Pulse Ox 02/03/21 07:29 02/03/21 07:13 131/72 96 02/03/21 07:00 131/72 99 02/03/21 06:00 129/75 98 02/03/21 05:22 98 02/03/21 05:00 140/74 02/03/21 04:00 135/70 94 02/03/21 03:55 02/03/21 03:00 133/72 96 02/03/21 02:00 140/78 94 02/03/21 01:24 02/03/21 01:00 143/78 95 02/03/21 00:20 97 02/03/21 00:10 02/03/21 00:00 144/83 93 02/02/21 23:34 145/75 98 02/02/21 23:00 145/75 93 02/02/21 22:00 143/75 95 02/02/21 21:00 140/73 97 02/02/21 20:30 97 02/02/21 20:00 139/73 94 02/02/21 19:20 02/02/21 19:00 141/71 95 02/02/21 18:00 139/74 91 02/02/21 17:00 135/74 02/02/21 16:00 136/73 96 02/02/21 15:00 125/70 94 02/02/21 14:00 129/69 96 02/02/21 13:52 02/02/21 13:14 96 02/02/21 13:00 135/72 94 02/02/21 12:00 126/68 02/02/21 11:48 02/02/21 11:00 132/70 - Physical Examination General: Appears Well, No Apparent Distress HEENT: Positive: PERRL Neck: Positive: neck supple. Negative: JVD/HJR Cardiac: Positive: Reg Rate and Rhythm Lungs: Positive: Decreased Breath Sounds Neuro: Positive: Grossly Intact Abdomen: Positive: Soft Skin: Positive: Clear Extremities: Absent: edema - Labs and Meds Coagulation 02/02/21 Range/Units 09:34 PT 14.3 (12.2-14.9) Sec. INR 1.05 (0.87-1.13) CBC 02/02/21 02/03/21 Range/Units 09:34 04:14 WBC 14.6 H 16.2 H (4.5-11.0) K/mm3 RBC 3.79 3.79 (3.65-5.03) M/mm3 Hgb 10.8 L 10.6 L (11.8-15.2) gm/dl Hct 33.9 L 34.0 L (35.5-45.6) % Plt Count 251 249 (140-440) K/mm3 Comprehensive Metabolic Panel 02/02/21 02/03/21 Range/Units 09:34 04:14 Sodium 141 143 (137-145) mmol/L Potassium 4.9 5.7 H (3.6-5.0) mmol/L Chloride 100.7 101.8 (98-107) mmol/L Carbon Dioxide 34 H 37 H (22-30) mmol/L BUN 29 H 36 H (9-20) mg/dL Creatinine 1.8 H 1.7 H (0.8-1.3) mg/dL Glucose 168 H 151 H (75-100) mg/dL Calcium 8.8 9.2 (8.4-10.2) mg/dL
--- NOTE | 2021-02-03 10:15 | Progress Note ---
Assessment and Plan Impression: * Acute kidney injury vs underlying CKD * Acute hypoxic respiratory failure secondary to pulmonary edema vs infectious etilogy vs COPD exacerbation --COVID 19 negative * Congestive heart failure * Hypertension * Proteinuria - UPCR 2.2grams * Hyperkalemia Plan: * No acute indication for renal replacement therapy. Renal function is stable. Patient likely has underlying CKD * Continue IV diuresis * Serologic work up pending * Renal u/s reviewed - right 10.9cm, left 10cm; echogenic kidneys * TTE pending * Abx/steroids per pulmonary medicine * Strict I/O * Avoid potential nephrotoxins * Dose medications for renal function * Shall treat hyperkalemia medically Subjective Date of service: 02/03/21 Interval history: Patient states that his shortness of breath is improving. He is currently on high flow oxygen at 40%. Denies any nausea or vomiting. Oxygen saturation is 9 4%. Objective - Vital Signs Vital signs: Vital Signs - 12hr 02/02/21 02/02/21 02/03/21 23:00 23:34 00:00 Temperature 98.2 F Pulse Rate 85 79 84 Pulse Rate [ Anterior Bilateral Throughout] Pulse Rate [ From Monitor] Respiratory 17 18 18 Rate Respiratory Rate [Anterior Bilateral Throughout] Respiratory Rate [Posterior Bilateral Throughout] Blood Pressure 145/75 145/75 144/83 O2 Sat by Pulse 93 98 93 Oximetry 02/03/21 02/03/21 02/03/21 00:10 00:20 01:00 Temperature Pulse Rate 83 77 75 Pulse Rate [ Anterior Bilateral Throughout] Pulse Rate [ From Monitor] Respiratory 18 19 Rate Respiratory Rate [Anterior Bilateral Throughout] Respiratory Rate [Posterior Bilateral Throughout] Blood Pressure 143/78 O2 Sat by Pulse 97 95 Oximetry 02/03/21 02/03/21 02/03/21 01:24 02:00 03:00 Temperature Pulse Rate 74 64 Pulse Rate [ 71 Anterior Bilateral Throughout] Pulse Rate [ From Monitor] Respiratory 16 18 Rate Respiratory 18 Rate [Anterior Bilateral Throughout] Respiratory 18 Rate [Posterior Bilateral Throughout] Blood Pressure 140/78 133/72 O2 Sat by Pulse 94 96 Oximetry 02/03/21 02/03/21 02/03/21 03:55 04:00 05:00 Temperature 98.5 F Pulse Rate 58 L 73 Pulse Rate [ Anterior Bilateral Throughout] Pulse Rate [ 58 L From Monitor] Respiratory 18 15 Rate Respiratory Rate [Anterior Bilateral Throughout] Respiratory Rate [Posterior Bilateral Throughout] Blood Pressure 135/70 140/74 O2 Sat by Pulse 94 Oximetry 02/03/21 02/03/21 02/03/21 05:22 06:00 07:00 Temperature Pulse Rate 71 69 66 Pulse Rate [ Anterior Bilateral Throughout] Pulse Rate [ From Monitor] Respiratory 20 20 20 Rate Respiratory Rate [Anterior Bilateral Throughout] Respiratory Rate [Posterior Bilateral Throughout] Blood Pressure 129/75 131/72 O2 Sat by Pulse 98 98 99 Oximetry 02/03/21 02/03/21 07:13 07:29 Temperature Pulse Rate 68 73 Pulse Rate [ 71 Anterior Bilateral Throughout] Pulse Rate [ From Monitor] Respiratory 28 H Rate Respiratory 22 Rate [Anterior Bilateral Throughout] Respiratory Rate [Posterior Bilateral Throughout] Blood Pressure 131/72 O2 Sat by Pulse 96 Oximetry - General Appearance General appearance: well-developed, well-nourished, appears stated age EENT: PERRL, mucous membranes moist Neck: no JVD, no thyromegaly, no carotid bruit, supple Respiratory: Present: Ronchi (Few scattered rhonchi) Cardiology: regular, normal heart rate Gastrointestinal: normal, normoactive bowel sounds Integumentary: other (No edema) - Lab 02/03/21 04:14 02/03/21 04:14 Most recent lab results Calcium 9.2 mg/dL (8.4-10.2) 02/03/21 04:14 Urine Creatinine 99.1 mg/dL (0.1-20.0) H 02/02/21 01:30 Urine Sodium 44 mmol/L 02/02/21 01:30 Urine Total Protein 219 mg/dL (5-11.8) H 02/02/21 01:30 Medications & Allergies - Medications Allergies/Adverse Reactions: Allergies shellfish derived Allergy (Verified 02/01/21 03:16) Itching Home Medications: Home Medications Medication Instructions Recorded Confirmed Last Taken Type AtorvaSTATin [Lipitor] 40 mg PO QHS 02/02/21 02/02/21 01/31/21 History Cholecalciferol Vit D3 [Vitamin D3 1,000 unit PO QDAY 02/02/21 02/02/21 01/31/21 History 1,000 UNIT TAB] Furosemide [Lasix] 40 mg PO QDAY 02/02/21 02/02/21 01/31/21 History amLODIPine [Norvasc] 10 mg PO DAILY 02/02/21 02/02/21 01/31/21 History carvediloL [Coreg] 25 mg PO BID 02/02/21 02/02/21 01/31/21 History metFORMIN [Glucophage] 500 mg PO QDAY 02/02/21 02/02/21 01/31/21 History Active Medications: Generic Name Dose Route Start Last Admin Trade Name Freq PRN Reason Stop Dose Admin Albuterol/Ipratropium 1 ampul 02/02/21 02:00 02/03/21 07:13 Ipratropium/Albuterol Sulfate 3 Ml Ampul.Neb IH 1 ampul Q6HRT REVA Administration Furosemide 40 mg 02/02/21 10:00 02/03/21 09:49 Furosemide 40 Mg/4 Ml Inj IV 40 mg QDAY REVA Administration Heparin Sodium (Porcine) 5,000 unit 02/01/21 06:00 02/03/21 05:39 Heparin 5,000 Unit/1 Ml Vial SUB-Q 5,000 unit Q8HR REVA Administration Hydralazine HCl 10 mg 02/01/21 06:21 Hydralazine 20 Mg/1 Ml Inj IV Q4HR PRN Blood Pressure Ceftriaxone Sodium 2 gm in 100 mls @ 200 mls/hr 02/02/21 04:00 02/03/21 04:05 Rocephin/Ns 2 Gm/100 Ml IV 200 mls/hr Q24H REVA Administration Protocol Azithromycin 500 mg in 250 mls @ 250 mls/hr 02/02/21 05:00 02/03/21 04:19 Zithromax/Ns IV 250 mls/hr Q24H REVA Administration Protocol Magnesium Hydroxide 30 ml 02/01/21 05:00 Magnesium Hydroxide (Mom) Oral Liqd Udc PO Q4H PRN Constipation Methylprednisolone Sodium Succinate 40 mg 02/01/21 06:00 02/03/21 05:39 Methylprednisolone Sod Succinate 40 Mg/1 Ml Inj IV 40 mg Q8HR REVA Administration Morphine Sulfate 2 mg 02/01/21 05:00 Morphine 2 Mg/1 Ml Inj IV Q4H PRN Pain, Moderate (4-6) Ondansetron HCl 4 mg 02/01/21 05:00 Ondansetron 4 Mg/2 Ml Inj IV Q8H PRN Nausea And Vomiting Sodium Chloride 10 ml 02/01/21 10:00 06/28/21 09:49 Sodium Chloride 0.9% 10 Ml Flush Syringe IV 10 ml BID REVA Administration Sodium Chloride 10 ml 02/01/21 05:00 Sodium Chloride 0.9% 10 Ml Flush Syringe IV PRN PRN LINE FLUSH
--- NOTE | 2021-02-03 11:49 | Progress Note ---
Assessment and Plan Cultures: Blood culture 02/01/2021 no growth COVID-19 PCR: Negative A/P: 70-year-old male past medical historyhypertension, CHF, COPD admitted with acute hypoxic respiratory failure #Acute hypoxic respiratory failure: Secondary to pneumonia versus edema and COPD. Requiring high flow nasal cannula. #?Bilateral pneumonia: elevated WBC could be from steroids that patient received from paramedics prior to admission and now remains on steroids. Procal is low at 0.08. #ASHLEY: Related adjust medications Recs: -elevated WBC could be from steroids that patient received from paramedics prior to admission and now remains on steroids. Procal is low at 0.08. -plan to stop ceftriaxone and azithromycin after today's doses Jocelynn Aparicio MD, FACP [facility] ([facility] O: [phone] F: [phone] Subjective Date of service: 02/03/21 Interval history: No fever. On HFNC. Has no complaints, feeling better. Objective - Exam Narrative Exam: Physical Exam: Constitutional: awake, alert Head, Ears, Nose: Normocephalic, atraumatic. External ears, nose normal Eyes: Conjunctivae/corneas clear. No icterus. No ptosis. Neck: Supple, no meningeal signs Cardiovascular: S1, S2 normal. Respiratory: AE decreased b/l but no crackles or wheeze GI: Soft, non-tender; bowel sounds normal. No peritoneal signs Musculoskeletal: No pedal edema, no cyanosis. Skin: No rash or abscess Hem/Lymphatic: No palpable cervical or supraclavicular nodes. No lymphangitis Psych: Mood ok. Affect normal Neurological: Awake, alert, oriented. No gross abnormality - Constitutional Vitals: Vital Signs Temp Pulse Resp BP Pulse Ox 98.5 F 87 23 155/83 97 02/03/21 08:00 02/03/21 11:09 02/03/21 11:09 02/03/21 10:00 02/03/21 11:09 Temperature -Last 24 Hours Temperature 98.5 F Temperature 98.5 F Temperature 98.2 F Temperature 98.4 F Temperature 98.2 F - Labs CBC & Chem 7: 02/03/21 04:14 02/03/21 04:14 Labs: Abnormal lab results 02/02/21 02/02/21 02/03/21 Range/Units 16:03 21:39 04:14 WBC 16.2 H (4.5-11.0) K/mm3 Hgb 10.6 L (11.8-15.2) gm/dl Hct 34.0 L (35.5-45.6) % MCHC 31 L (32-34) % RDW 19.1 H (13.2-15.2) % Seg Neuts % (Manual) 96.0 H (40.0-70.0) % Lymphocytes % (Manual) 2.0 L (13.4-35.0) % Seg Neutrophils # Man 15.6 H (1.8-7.7) K/mm3 Lymphocytes # (Manual) 0.3 L (1.2-5.4) K/mm3 Potassium (3.6-5.0) mmol/L Carbon Dioxide (22-30) mmol/L BUN (9-20) mg/dL Creatinine (0.8-1.3) mg/dL Glucose (75-100) mg/dL POC Glucose 144 H 156 H (70-105) mg/dL 02/03/21 02/03/21 02/03/21 Range/Units 04:14 07:37 11:05 WBC (4.5-11.0) K/mm3 Hgb (11.8-15.2) gm/dl Hct (35.5-45.6) % MCHC (32-34) % RDW (13.2-15.2) % Seg Neuts % (Manual) (40.0-70.0) % Lymphocytes % (Manual) (13.4-35.0) % Seg Neutrophils # Man (1.8-7.7) K/mm3 Lymphocytes # (Manual) (1.2-5.4) K/mm3 Potassium 5.7 H (3.6-5.0) mmol/L Carbon Dioxide 37 H (22-30) mmol/L BUN 36 H (9-20) mg/dL Creatinine 1.7 H (0.8-1.3) mg/dL Glucose 151 H (75-100) mg/dL POC Glucose 141 H 211 H (70-105) mg/dL
--- NOTE | 2021-02-03 12:07 | Nuclear Medicine Report ---
NUCLEAR MEDICINE PERFUSION SCAN INDICATION: resp failure, elevated d-dimer CORRELATION: AP chest performed earlier today RADIOPHARMACEUTICAL: Perfusion: 5.2 mCi Tc-99m MAA given IV FINDINGS: Perfusion images show slightly homogeneous but uniform radiotracer distribution throughout bilateral lung zones with no evidence of segmental perfusion defects extending to the pleural surface. Normal c ardiac silhouette. IMPRESSION: Low probability perfusion scan for pulmonary embolism. Signer Name: Rao Su Jr, MD Signed: 02/03/2021 12:03 PM Workstation Name: [id number]
--- NOTE | 2021-02-03 12:10 | Progress Note ---
Assessment and Plan 70 y/o male with acute on chronic respiratory failure, secondary to COPD exacerbation from either pneumonia or volume overload with prior history of chronic lung disease Patient is followed at the [facility] and has chronic respiratory failure of 2 liters NC at home 01/03. Also per patient he has some "spots" on his lungs from having bad pneumonia many years ago so some of his changes are likely chronic that we are seeing. 1. Despite normal BNP and no evidence of systolic failure, would continue diuresis as long as BP and renal function will allow. Had significant improvement in 24 hours which is atypical for pneumonia as that picture can take 6-8 weeks to resolve. Agree with current dose of steroids. Wean FiO2 for sats >88%. Continue IMCU care for now. Subjective Date of service: 02/03/21 Interval history: Patient was off the floor for V/Q scan but just got back. Awake and alert in no distress. Currently on 20 and 40%. Sat is 97%. Objective Vital Signs - 12hr 02/03/21 02/03/21 02/03/21 00:10 00:20 01:00 Temperature Pulse Rate 83 77 75 Pulse Rate [ Anterior Bilateral Throughout] Pulse Rate [ From Monitor] Respiratory 18 19 Rate Respiratory Rate [Anterior Bilateral Throughout] Respiratory Rate [Posterior Bilateral Throughout] Blood Pressure 143/78 O2 Sat by Pulse 97 95 Oximetry 02/03/21 02/03/21 02/03/21 01:24 02:00 03:00 Temperature Pulse Rate 74 64 Pulse Rate [ 71 Anterior Bilateral Throughout] Pulse Rate [ From Monitor] Respiratory 16 18 Rate Respiratory 18 Rate [Anterior Bilateral Throughout] Respiratory 18 Rate [Posterior Bilateral Throughout] Blood Pressure 140/78 133/72 O2 Sat by Pulse 94 96 Oximetry 02/03/21 02/03/21 02/03/21 03:55 04:00 05:00 Temperature 98.5 F Pulse Rate 58 L 73 Pulse Rate [ Anterior Bilateral Throughout] Pulse Rate [ 58 L From Monitor] Respiratory 18 15 Rate Respiratory Rate [Anterior Bilateral Throughout] Respiratory Rate [Posterior Bilateral Throughout] Blood Pressure 135/70 140/74 O2 Sat by Pulse 94 Oximetry 02/03/21 02/03/21 02/03/21 05:22 06:00 07:00 Temperature Pulse Rate 71 69 66 Pulse Rate [ Anterior Bilateral Throughout] Pulse Rate [ From Monitor] Respiratory 20 20 20 Rate Respiratory Rate [Anterior Bilateral Throughout] Respiratory Rate [Posterior Bilateral Throughout] Blood Pressure 129/75 131/72 O2 Sat by Pulse 98 98 99 Oximetry 02/03/21 02/03/21 02/03/21 07:13 07:29 08:00 Temperature 98.5 F Pulse Rate 68 73 72 Pulse Rate [ 71 Anterior Bilateral Throughout] Pulse Rate [ From Monitor] Respiratory 28 H 24 Rate Respiratory 22 Rate [Anterior Bilateral Throughout] Respiratory Rate [Posterior Bilateral Throughout] Blood Pressure 131/72 140/79 O2 Sat by Pulse 96 98 Oximetry 02/03/21 02/03/21 02/03/21 09:00 10:00 11:09 Temperature Pulse Rate 85 82 87 Pulse Rate [ Anterior Bilateral Throughout] Pulse Rate [ From Monitor] Respiratory 12 13 23 Rate Respiratory Rate [Anterior Bilateral Throughout] Respiratory Rate [Posterior Bilateral Throughout] Blood Pressure 140/79 155/83 O2 Sat by Pulse 92 95 97 Oximetry Constitutional: no acute distress, alert Eyes: non-icteric ENT: oropharynx moist, other (no jvd) Neck: supple, no JVD Ascultation: Bilateral: diminished breath sounds Cardiovascular: regular rate and rhythm Gastrointestinal: normoactive bowel sounds, soft, non-tender Extremities: edema CBC and BMP: 02/03/21 04:14 02/03/21 04:14 ABG, PT/INR, D-dimer: PT/INR, D-dimer PT 14.3 Sec. (12.2-14.9) 02/02/21 09:34 INR 1.05 (0.87-1.13) 02/02/21 09:34 D-Dimer 872.83 ng/mlDDU (0-234) H 02/01/21 04:47 Abnormal lab findings: Abnormal Labs 02/01/21 02/01/21 02/01/21 03:10 03:10 03:10 WBC 14.7 H Hgb Hct 35.2 L MCHC RDW 18.6 H Lymph % (Auto) 9.8 L [place] # (Auto) 1.1 H Eos # (Auto) 0.5 H Seg Neutrophils % 78.9 H Seg Neuts % (Manual) Lymphocytes % (Manual) Seg Neutrophils # 11.6 H Seg Neutrophils # Man Lymphocytes # (Manual) D-Dimer Potassium 5.1 H Chloride 97.3 L Carbon Dioxide 31 H BUN Creatinine 1.8 H Glucose 148 H POC Glucose Lactate Dehydrogenase 243 H Urine Creatinine Urine Total Protein 06/26/21 06/26/21 06/27/21 04:47 13:07 01:30 WBC Hgb Hct MCHC RDW Lymph % (Auto) [place] # (Auto) Eos # (Auto) Seg Neutrophils % Seg Neuts % (Manual) Lymphocytes % (Manual) Seg Neutrophils # Seg Neutrophils # Man Lymphocytes # (Manual) D-Dimer 872.83 H Potassium Chloride Carbon Dioxide BUN Creatinine Glucose POC Glucose 169 H Lactate Dehydrogenase Urine Creatinine 99.1 H Urine Total Protein 219 H 02/02/21 02/02/21 02/02/21 07:44 09:34 09:34 WBC 14.6 H Hgb 10.8 L Hct 33.9 L MCHC RDW 19.1 H Lymph % (Auto) [place] # (Auto) Eos # (Auto) Seg Neutrophils % Seg Neuts % (Manual) 94.0 H Lymphocytes % (Manual) 3.0 L Seg Neutrophils # Seg Neutrophils # Man 13.7 H Lymphocytes # (Manual) 0.4 L D-Dimer Potassium Chloride Carbon Dioxide 34 H BUN 29 H Creatinine 1.8 H Glucose 168 H POC Glucose 127 H Lactate Dehydrogenase Urine Creatinine Urine Total Protein 02/02/21 02/02/21 02/02/21 11:33 16:03 21:39 WBC Hgb Hct MCHC RDW Lymph % (Auto) [place] # (Auto) Eos # (Auto) Seg Neutrophils % Seg Neuts % (Manual) Lymphocytes % (Manual) Seg Neutrophils # Seg Neutrophils # Man Lymphocytes # (Manual) D-Dimer Potassium Chloride Carbon Dioxide BUN Creatinine Glucose POC Glucose 192 H 144 H 156 H Lactate Dehydrogenase Urine Creatinine Urine Total Protein 02/03/21 02/03/21 02/03/21 04:14 04:14 07:37 WBC 16.2 H Hgb 10.6 L Hct 34.0 L MCHC 31 L RDW 19.1 H Lymph % (Auto) [place] # (Auto) Eos # (Auto) Seg Neutrophils % Seg Neuts % (Manual) 96.0 H Lymphocytes % (Manual) 2.0 L Seg Neutrophils # Seg Neutrophils # Man 15.6 H Lymphocytes # (Manual) 0.3 L D-Dimer Potassium 5.7 H Chloride Carbon Dioxide 37 H BUN 36 H Creatinine 1.7 H Glucose 151 H POC Glucose 141 H Lactate Dehydrogenase Urine Creatinine Urine Total Protein 02/03/21 11:05 WBC Hgb Hct MCHC RDW Lymph % (Auto) [place] # (Auto) Eos # (Auto) Seg Neutrophils % Seg Neuts % (Manual) Lymphocytes % (Manual) Seg Neutrophils # Seg Neutrophils # Man Lymphocytes # (Manual) D-Dimer Potassium Chloride Carbon Dioxide BUN Creatinine Glucose POC Glucose 211 H Lactate Dehydrogenase Urine Creatinine Urine Total Protein
[2021-02-03] MEDS: carvediloL 25 MG TAB PO SCH (21:45)
[2021-02-04] MEDS: IPRATROPIUM/ALBUTEROL SULFATE 3 ML AMPUL.NEB IH SCH ×4 (02:45→20:16)
[2021-02-04] MEDS: HEPARIN 5,000 UNIT/1 ML VIAL SUB-Q SCH ×3 (05:49→22:39)
[2021-02-04] MEDS: methylPREDNISolone Sod Succinate 40 MG/1 ML INJ IV SCH ×3 (05:49→22:38)
[2021-02-04 06:04] LABS: Calcium 8.7 mg/dL (8.4-10.2)
[2021-02-04] MEDS: metFORMIN 500 MG TAB PO SCH (09:00)
--- NOTE | 2021-02-04 09:17 | Progress Note ---
Assessment and Plan Impression: * Acute kidney injury vs underlying CKD * Acute hypoxic respiratory failure secondary to pulmonary edema vs infectious etilogy vs COPD exacerbation --COVID 19 negative * Congestive heart failure * Hypertension * Proteinuria - UPCR 2.2grams * Hyperkalemia Plan: * No acute indication for renal replacement therapy. Renal function is stable. Patient likely has underlying CKD * Continue IV diuresis * Serologic work up pending * Renal u/s reviewed - right 10.9cm, left 10cm; echogenic kidneys * TTE showing ejection fraction of 50 to 55% * Abx/steroids per pulmonary medicine * Strict I/O * Avoid potential nephrotoxins * Dose medications for renal function * Hyperkalemia has been corrected Subjective Date of service: 02/04/21 Interval history: Patient is comfortable. Shortness of breath is improving. He is currently on a BiPAP mask with 30% FiO2. Oxygen saturation is 98% Objective - Vital Signs Vital signs: Vital Signs - 12hr 02/03/21 02/03/21 02/03/21 21:45 22:00 22:30 Temperature Pulse Rate 65 80 82 Pulse Rate [ Anterior Bilateral Throughout] Pulse Rate [ From Monitor] Pulse Rate [ Posterior Bilateral Throughout] Respiratory 14 20 Rate Respiratory Rate [Anterior Bilateral Throughout] Respiratory Rate [Posterior Bilateral Throughout] Blood Pressure 162/89 166/82 158/79 O2 Sat by Pulse 98 98 Oximetry 02/03/21 02/03/21 02/04/21 22:36 23:00 00:00 Temperature 97.6 F Pulse Rate 79 59 L 62 Pulse Rate [ Anterior Bilateral Throughout] Pulse Rate [ 68 From Monitor] Pulse Rate [ Posterior Bilateral Throughout] Respiratory 18 14 21 Rate Respiratory Rate [Anterior Bilateral Throughout] Respiratory Rate [Posterior Bilateral Throughout] Blood Pressure 166/82 166/82 151/72 O2 Sat by Pulse 99 99 99 Oximetry 02/04/21 02/04/21 02/04/21 01:00 02:00 02:40 Temperature Pulse Rate 62 63 Pulse Rate [ 88 Anterior Bilateral Throughout] Pulse Rate [ From Monitor] Pulse Rate [ Posterior Bilateral Throughout] Respiratory 25 H 18 Rate Respiratory 20 Rate [Anterior Bilateral Throughout] Respiratory Rate [Posterior Bilateral Throughout] Blood Pressure 148/74 148/74 O2 Sat by Pulse 99 100 Oximetry 02/04/21 02/04/21 02/04/21 02:53 03:00 04:00 Temperature 98.2 F Pulse Rate 75 73 62 Pulse Rate [ Anterior Bilateral Throughout] Pulse Rate [ 62 From Monitor] Pulse Rate [ Posterior Bilateral Throughout] Respiratory 18 18 17 Rate Respiratory Rate [Anterior Bilateral Throughout] Respiratory Rate [Posterior Bilateral Throughout] Blood Pressure 144/71 144/71 158/79 O2 Sat by Pulse 99 97 96 Oximetry 02/04/21 02/04/21 02/04/21 05:00 06:00 07:00 Temperature Pulse Rate 60 61 55 L Pulse Rate [ Anterior Bilateral Throughout] Pulse Rate [ From Monitor] Pulse Rate [ Posterior Bilateral Throughout] Respiratory 18 21 19 Rate Respiratory Rate [Anterior Bilateral Throughout] Respiratory Rate [Posterior Bilateral Throughout] Blood Pressure 146/76 146/76 143/72 O2 Sat by Pulse 98 97 97 Oximetry 02/04/21 02/04/21 02/04/21 08:00 08:36 08:41 Temperature 97.0 F L Pulse Rate 60 Pulse Rate [ 66 Anterior Bilateral Throughout] Pulse Rate [ From Monitor] Pulse Rate [ 69 Posterior Bilateral Throughout] Respiratory 23 Rate Respiratory 16 Rate [Anterior Bilateral Throughout] Respiratory 14 Rate [Posterior Bilateral Throughout] Blood Pressure 143/72 O2 Sat by Pulse 99 100 Oximetry - General Appearance General appearance: well-developed, well-nourished, appears stated age EENT: PERRL, mucous membranes moist Neck: no JVD, no thyromegaly, no carotid bruit, supple Respiratory: Present: Clear to Ascultation Cardiology: regular, normal heart rate Gastrointestinal: normal, normoactive bowel sounds Integumentary: other (No edema) - Lab 02/03/21 04:14 02/04/21 05:06 Most recent lab results Calcium 8.7 mg/dL (8.4-10.2) 02/04/21 05:06 Urine Creatinine 99.1 mg/dL (0.1-20.0) H 02/02/21 01:30 Urine Sodium 44 mmol/L 02/02/21 01:30 Urine Total Protein 219 mg/dL (5-11.8) H 02/02/21 01:30 Medications & Allergies - Medications Allergies/Adverse Reactions: Allergies shellfish derived Allergy (Verified 02/01/21 03:16) Itching Home Medications: Home Medications Medication Instructions Recorded Confirmed Last Taken Type AtorvaSTATin [Lipitor] 40 mg PO DAILY 02/02/21 02/03/21 01/31/21 History Cholecalciferol Vit D3 [Vitamin D3 2,000 unit PO QDAY 02/02/21 02/03/21 01/31/21 History 1,000 UNIT TAB] Furosemide [Lasix] 40 mg PO BID 02/02/21 02/03/21 01/31/21 History amLODIPine [Norvasc] 10 mg PO DAILY 02/02/21 02/02/21 01/31/21 History carvediloL [Coreg] 12.5 mg PO BID 02/02/21 02/03/21 01/31/21 History metFORMIN [Glucophage] 500 mg PO QDAY 02/02/21 02/02/21 01/31/21 History Aspirin EC 81 mg PO DAILY 02/03/21 02/03/21 Unknown History Ferrous Sulfate 325 mg PO DAILY 02/03/21 02/03/21 Unknown History Loratadine 10 mg PO PRN 02/03/21 02/03/21 Unknown History Losartan 100 mg PO DAILY 02/03/21 02/03/21 Unknown History Tamsulosin 0.4 mg PO DAILY 02/03/21 02/03/21 Unknown History Active Medications: Generic Name Dose Route Start Last Admin Trade Name Freq PRN Reason Stop Dose Admin Albuterol/Ipratropium 1 ampul 02/02/21 02:00 02/04/21 08:29 Ipratropium/Albuterol Sulfate 3 Ml Ampul.Neb IH 1 ampul Q6HRT REVA Administration Amlodipine Besylate 10 mg 02/04/21 10:00 Amlodipine 10 Mg Tab PO DAILY [facility] Atorvastatin Calcium 40 mg 02/03/21 22:00 02/03/21 21:48 Atorvastatin 40 Mg Tab PO 40 mg QHS REVA Administration Carvedilol 25 mg 02/03/21 22:00 02/03/21 21:45 Carvedilol 25 Mg Tab PO 25 mg BID [facility] Administration Cholecalciferol 1,000 unit 02/04/21 10:00 Cholecalciferol (Vit D3) 1000 Unit (25 Mcg) Tab PO QDAY REVA Furosemide 40 mg 02/02/21 10:00 02/03/21 09:49 Furosemide 40 Mg/4 Ml Inj IV 40 mg QDAY [facility] Administration Heparin Sodium (Porcine) 5,000 unit 02/01/21 06:00 02/04/21 05:49 Heparin 5,000 Unit/1 Ml Vial SUB-Q 5,000 unit Q8HR REVA Administration Hydralazine HCl 10 mg 02/01/21 06:21 Hydralazine 20 Mg/1 Ml Inj IV Q4HR PRN Blood Pressure Magnesium Hydroxide 30 ml 02/01/21 05:00 Magnesium Hydroxide (Mom) Oral Liqd Udc PO Q4H PRN Constipation Metformin HCl 500 mg 02/04/21 08:00 Metformin 500 Mg Tab PO QDDIAB REVA Methylprednisolone Sodium Succinate 40 mg 02/01/21 06:00 02/04/21 05:49 Methylprednisolone Sod Succinate 40 Mg/1 Ml Inj IV 40 mg Q8HR REVA Administration Morphine Sulfate 2 mg 02/01/21 05:00 Morphine 2 Mg/1 Ml Inj IV Q4H PRN Pain, Moderate (4-6) Ondansetron HCl 4 mg 02/01/21 05:00 Ondansetron 4 Mg/2 Ml Inj IV Q8H PRN Nausea And Vomiting Sodium Chloride 10 ml 02/01/21 10:00 02/03/21 21:48 Sodium Chloride 0.9% 10 Ml Flush Syringe IV 10 ml BID REVA Administration Sodium Chloride 10 ml 02/01/21 05:00 Sodium Chloride 0.9% 10 Ml Flush Syringe IV PRN PRN LINE FLUSH
[2021-02-04] MEDS: FUROSEMIDE 40 MG/4 ML INJ IV SCH (09:23)
[2021-02-04] MEDS: amLODIPine 10 MG TAB PO SCH (09:23)
[2021-02-04] MEDS: CHOLECALCIFEROL (VIT D3) 1000 UNIT (25 mcg) TAB PO SCH (09:23)
[2021-02-04] MEDS: carvediloL 25 MG TAB PO SCH ×2 (09:24→22:38)
--- NOTE | 2021-02-04 11:32 | Progress Note ---
Assessment and Plan 70 y/o male with acute on chronic respiratory failure, secondary to COPD exacerbation from either pneumonia or volume overload with prior history of chronic lung disease 02/04/21: Pulm status continues to improve. Very close to baseline and off HFNC. Stable for transfer to floor. Can likely change to oral steroids tomorrow starting at 60 daily and taper as follows: 60 daily for 4 days, 40 daily for 4 days, 20 daily for 4 days then 10 daily for 4 days then stop. Diuresis per renal . Please see notes from below about other history. Will continue to follow. Patient is followed at the [facility] and has chronic respiratory failure of 2 liters NC at home 01/03. Also per patient he has some "spots" on his lungs from having bad pneumonia many years ago so some of his changes are likely chronic that we are seeing. 1. Despite normal BNP and no evidence of systolic failure, would continue diuresis as long as BP and renal function will allow. Had significant improvement in 24 hours which is atypical for pneumonia as that picture can take 6-8 weeks to resolve. Agree with current dose of steroids. Wean FiO2 for sats >88%. Continue IMCU care for now. Subjective Date of service: 02/04/21 Interval history: patient down to 3 liters NC with good sats. Wears 2 liters at home baseline. Objective Vital Signs - 12hr 02/04/21 02/04/21 02/04/21 00:00 01:00 02:00 Temperature 97.6 F Pulse Rate 62 62 63 Pulse Rate [ Anterior Bilateral Throughout] Pulse Rate [ 68 From Monitor] Pulse Rate [ Posterior Bilateral Throughout] Respiratory 21 25 H 18 Rate Respiratory Rate [Anterior Bilateral Throughout] Respiratory Rate [Posterior Bilateral Throughout] Blood Pressure 151/72 148/74 148/74 O2 Sat by Pulse 99 99 100 Oximetry 02/04/21 02/04/21 02/04/21 02:40 02:53 03:00 Temperature Pulse Rate 75 73 Pulse Rate [ 88 Anterior Bilateral Throughout] Pulse Rate [ From Monitor] Pulse Rate [ Posterior Bilateral Throughout] Respiratory 18 18 Rate Respiratory 20 Rate [Anterior Bilateral Throughout] Respiratory Rate [Posterior Bilateral Throughout] Blood Pressure 144/71 144/71 O2 Sat by Pulse 99 97 Oximetry 02/04/21 02/04/21 02/04/21 04:00 05:00 06:00 Temperature 98.2 F Pulse Rate 62 60 61 Pulse Rate [ Anterior Bilateral Throughout] Pulse Rate [ 62 From Monitor] Pulse Rate [ Posterior Bilateral Throughout] Respiratory 17 18 21 Rate Respiratory Rate [Anterior Bilateral Throughout] Respiratory Rate [Posterior Bilateral Throughout] Blood Pressure 158/79 146/76 146/76 O2 Sat by Pulse 96 98 97 Oximetry 02/04/21 02/04/21 02/04/21 07:00 08:00 08:36 Temperature 97.0 F L Pulse Rate 55 L 60 Pulse Rate [ 66 Anterior Bilateral Throughout] Pulse Rate [ From Monitor] Pulse Rate [ 69 Posterior Bilateral Throughout] Respiratory 19 23 Rate Respiratory 16 Rate [Anterior Bilateral Throughout] Respiratory 14 Rate [Posterior Bilateral Throughout] Blood Pressure 143/72 143/72 O2 Sat by Pulse 97 99 Oximetry 02/04/21 02/04/21 02/04/21 08:41 09:00 09:23 Temperature Pulse Rate 78 75 Pulse Rate [ Anterior Bilateral Throughout] Pulse Rate [ From Monitor] Pulse Rate [ Posterior Bilateral Throughout] Respiratory 14 Rate Respiratory Rate [Anterior Bilateral Throughout] Respiratory Rate [Posterior Bilateral Throughout] Blood Pressure 148/74 157/83 O2 Sat by Pulse 100 96 Oximetry 02/04/21 02/04/21 02/04/21 09:24 10:00 11:00 Temperature Pulse Rate 74 86 69 Pulse Rate [ Anterior Bilateral Throughout] Pulse Rate [ From Monitor] Pulse Rate [ Posterior Bilateral Throughout] Respiratory 12 16 Rate Respiratory Rate [Anterior Bilateral Throughout] Respiratory Rate [Posterior Bilateral Throughout] Blood Pressure 157/83 157/83 159/85 O2 Sat by Pulse 100 99 Oximetry Constitutional: no acute distress, alert Eyes: non-icteric ENT: oropharynx moist, other (no jvd) Neck: supple, no JVD Ascultation: Bilateral: diminished breath sounds Cardiovascular: regular rate and rhythm Gastrointestinal: normoactive bowel sounds, soft, non-tender Extremities: edema CBC and BMP: 02/03/21 04:14 02/04/21 05:06 ABG, PT/INR, D-dimer: PT/INR, D-dimer PT 14.3 Sec. (12.2-14.9) 02/02/21 09:34 INR 1.05 (0.87-1.13) 02/02/21 09:34 D-Dimer 872.83 ng/mlDDU (0-234) H 02/01/21 04:47 Abnormal lab findings: Abnormal Labs 02/01/21 02/01/21 02/01/21 03:10 03:10 03:10 WBC 14.7 H Hgb Hct 35.2 L MCHC RDW 18.6 H Lymph % (Auto) 9.8 L [place] # (Auto) 1.1 H Eos # (Auto) 0.5 H Seg Neutrophils % 78.9 H Seg Neuts % (Manual) Lymphocytes % (Manual) Seg Neutrophils # 11.6 H Seg Neutrophils # Man Lymphocytes # (Manual) D-Dimer Potassium 5.1 H Chloride 97.3 L Carbon Dioxide 31 H BUN Creatinine 1.8 H Glucose 148 H POC Glucose Lactate Dehydrogenase 243 H Urine Creatinine Urine Total Protein 02/01/21 02/01/21 02/02/21 04:47 13:07 01:30 WBC Hgb Hct MCHC RDW Lymph % (Auto) [place] # (Auto) Eos # (Auto) Seg Neutrophils % Seg Neuts % (Manual) Lymphocytes % (Manual) Seg Neutrophils # Seg Neutrophils # Man Lymphocytes # (Manual) D-Dimer 872.83 H Potassium Chloride Carbon Dioxide BUN Creatinine Glucose POC Glucose 169 H Lactate Dehydrogenase Urine Creatinine 99.1 H Urine Total Protein 219 H 02/02/21 02/02/21 02/02/21 07:44 09:34 09:34 WBC 14.6 H Hgb 10.8 L Hct 33.9 L MCHC RDW 19.1 H Lymph % (Auto) [place] # (Auto) Eos # (Auto) Seg Neutrophils % Seg Neuts % (Manual) 94.0 H Lymphocytes % (Manual) 3.0 L Seg Neutrophils # Seg Neutrophils # Man 13.7 H Lymphocytes # (Manual) 0.4 L D-Dimer Potassium Chloride Carbon Dioxide 34 H BUN 29 H Creatinine 1.8 H Glucose 168 H POC Glucose 127 H Lactate Dehydrogenase Urine Creatinine Urine Total Protein 02/02/21 02/02/21 02/02/21 11:33 16:03 21:39 WBC Hgb Hct MCHC RDW Lymph % (Auto) [place] # (Auto) Eos # (Auto) Seg Neutrophils % Seg Neuts % (Manual) Lymphocytes % (Manual) Seg Neutrophils # Seg Neutrophils # Man Lymphocytes # (Manual) D-Dimer Potassium Chloride Carbon Dioxide BUN Creatinine Glucose POC Glucose 192 H 144 H 156 H Lactate Dehydrogenase Urine Creatinine Urine Total Protein 02/03/21 02/03/21 02/03/21 04:14 04:14 07:37 WBC 16.2 H Hgb 10.6 L Hct 34.0 L MCHC 31 L RDW 19.1 H Lymph % (Auto) [place] # (Auto) Eos # (Auto) Seg Neutrophils % Seg Neuts % (Manual) 96.0 H Lymphocytes % (Manual) 2.0 L Seg Neutrophils # Seg Neutrophils # Man 15.6 H Lymphocytes # (Manual) 0.3 L D-Dimer Potassium 5.7 H Chloride Carbon Dioxide 37 H BUN 36 H Creatinine 1.7 H Glucose 151 H POC Glucose 141 H Lactate Dehydrogenase Urine Creatinine Urine Total Protein 02/03/21 02/03/21 02/04/21 11:05 21:37 05:06 WBC Hgb Hct MCHC RDW Lymph % (Auto) [place] # (Auto) Eos # (Auto) Seg Neutrophils % Seg Neuts % (Manual) Lymphocytes % (Manual) Seg Neutrophils # Seg Neutrophils # Man Lymphocytes # (Manual) D-Dimer Potassium Chloride Carbon Dioxide 38 H BUN 35 H Creatinine 1.5 H Glucose 146 H POC Glucose 211 H 140 H Lactate Dehydrogenase Urine Creatinine Urine Total Protein 02/04/21 07:42 WBC Hgb Hct MCHC RDW Lymph % (Auto) [place] # (Auto) Eos # (Auto) Seg Neutrophils % Seg Neuts % (Manual) Lymphocytes % (Manual) Seg Neutrophils # Seg Neutrophils # Man Lymphocytes # (Manual) D-Dimer Potassium Chloride Carbon Dioxide BUN Creatinine Glucose POC Glucose 126 H Lactate Dehydrogenase Urine Creatinine Urine Total Protein
--- NOTE | 2021-02-04 11:56 | Progress Note ---
Assessment and Plan Assessment and plan: 70-year-old -[place] male with past medical history of COPD, hypertension, chronic diastolic heart failure who presents with acute respiratory failure with hypoxemia. Acute respiratory failure with hypoxemia Patient off BiPAP Antibiotics have been discontinued Breathing treatments and steroids Pulmonology following COPD exacerbation Continue nebulizers and steroids Baseline oxygen 2 L at home 01/03 Hypertensive emergency IV hydralazine as needed Pulmonary edema Echocardiogram reviewed, LVEF 50 to 55% with diastolic dysfunction Cardiology following Lasix Acute kidney injury Nephrology following No signs or indications for dialysis at this time DVT prophylaxis: Heparin CODE STATUS: Full Disposition: Transfer to the floor, wean patient wean patient down to 2 L of oxygen, continue diuresis, continue steroids. Anticipate discharge in the next 24 hours. History Interval history: 02/01/2021. Patient with acute respiratory failure likely secondary to bilateral pneumonia, COPD exacerbation and possibility of PE. Patient does have elevated D-dimer. Check VQ scan given the elevated creatinine. Doubt heart failure given the normal BNP and no evidence of pulmonary edema on x-ray. Follow-up echocardiogram and cardiology recommendations. Continue O2 supplementation and BiPAP as clinically indicated. Patient's creatinine is elevated at 1.8 and we do not have a baseline creatinine to compare. Check renal ultrasound and n ephrology consultation pending. I suspect patient has CKD. Continue IV antibiotics and follow-up blood and sputum cultures. Pulmonary consultation 02/02/2021. Renal ultrasound shows echogenic kidneys characteristic for medical renal disease. Patient likely has CKD. Patient currently requiring high flow nasal cannula 30 L/min with an FiO2 of 60%. Continue IV antibiotics per ID recommendations for pneumonia. Covid PCR negative. Blood cultures negative. Follow-up procalcitonin. VQ scan pending. 02/03/2021. Patient with high flow nasal cannula 20 L/min with an FiO2 of 40%. Continue to wean FiO2 as tolerated. Nephrology recommends no acute indication for renal replacement therapy. Continue IV diuresis. Serologic work-up pending. Renal ultrasound as noted above. Echocardiogram pending. Continue bronchodilators/nebulizers, IV steroids and IV antibiotics. Give Kayexalate 60 g x 1 for hyperkalemia. Nephrology following. 02/04/2021: Patient on nasal cannula oxygen, only on 3 to 4 L. Patient is stable for transfer to the floor. We will continue diuresing patient since that seems to have helped significantly. Patient states that he is feeling better today. Hospitalist Physical - Physical exam Narrative exam: General appearance: no acute distress, well-nourished EENT: PERRL, EOM intact, hearing intact, clear oral mucosa Neck: Present: supple, normal ROM Respiratory: Nasal cannula oxygen, bilateral CTA, negative: rales, rhonchi, wheezing Cardiovascular: Regular rate/rhythm, Normal S1 & S2. No gallop, rub Extremities: no ischemia, No edema, normal temperature, normal color, Full ROM Abdominal: soft, no tenderness, non-distended, normal bowel sounds Integumentary: Present: clear, warm, dry no wounds, no erythema noted Psychiatric: appropriate mood/affect, intact judgment & insight Neurologic: CNII-XII intact, moves all extremities, no sensory or motor abnormalities - Constitutional Vitals: Temp Pulse Resp BP Pulse Ox 97.0 F L 69 16 159/85 99 02/04/21 08:00 02/04/21 11:00 02/04/21 11:00 02/04/21 11:00 02/04/21 11:00 HEART Score - HEART Score Troponin: Troponin T < 0.010 ng/mL (0.00-0.029) 02/01/21 03:10 Results - Labs CBC & Chem 7: 02/03/21 04:14 02/04/21 05:06 Labs: Laboratory Last Values WBC 16.2 K/mm3 (4.5-11.0) H 02/03/21 04:14 RBC 3.79 M/mm3 (3.65-5.03) 02/03/21 04:14 Hgb 10.6 gm/dl (11.8-15.2) L 02/03/21 04:14 Hct 34.0 % (35.5-45.6) L 02/03/21 04:14 MCV 90 fl (84-94) 02/03/21 04:14 MCH 28 pg (28-32) 02/03/21 04:14 MCHC 31 % (32-34) L 02/03/21 04:14 RDW 19.1 % (13.2-15.2) H 02/03/21 04:14 Plt Count 249 K/mm3 (140-440) 02/03/21 04:14 Lymph % (Auto) 9.8 % (13.4-35.0) L 02/01/21 03:10 [place] % (Auto) 7.3 % (0.0-7.3) 02/01/21 03:10 Eos % (Auto) 3.3 % (0.0-4.3) 02/01/21 03:10 Baso % (Auto) 0.7 % (0.0-1.8) 02/01/21 03:10 Lymph # (Auto) 1.4 K/mm3 (1.2-5.4) 02/01/21 03:10 [place] # (Auto) 1.1 K/mm3 (0.0-0.8) H 02/01/21 03:10 Eos # (Auto) 0.5 K/mm3 (0.0-0.4) H 02/01/21 03:10 Baso # (Auto) 0.1 K/mm3 (0.0-0.1) 02/01/21 03:10 Add Manual Diff Complete 02/03/21 04:14 Total Counted 100 02/03/21 04:14 Seg Neutrophils % Horticultural Technical Officer 02/03/21 04:14 Seg Neuts % (Manual) 96.0 % (40.0-70.0) H 02/03/21 04:14 Band Neutrophils % 1.0 % 02/02/21 09:34 Lymphocytes % (Manual) 2.0 % (13.4-35.0) L 02/03/21 04:14 Monocytes % (Manual) 2.0 % (0.0-7.3) 02/03/21 04:14 Nucleated RBC % Not Reportable 02/03/21 04:14 Seg Neutrophils # 11.6 K/mm3 (1.8-7.7) H 02/01/21 03:10 Seg Neutrophils # Man 15.6 K/mm3 (1.8-7.7) H 02/03/21 04:14 Band Neutrophils # 0.0 K/mm3 02/03/21 04:14 Lymphocytes # (Manual) 0.3 K/mm3 (1.2-5.4) L 02/03/21 04:14 Abs React Lymphs (Man) 0.0 K/mm3 02/03/21 04:14 Monocytes # (Manual) 0.3 K/mm3 (0.0-0.8) 02/03/21 04:14 Eosinophils # (Manual) 0.0 K/mm3 (0.0-0.4) 02/03/21 04:14 Basophils # (Manual) 0.0 K/mm3 (0.0-0.1) 02/03/21 04:14 Metamyelocytes # 0.0 K/mm3 02/03/21 04:14 Myelocytes # 0.0 K/mm3 02/03/21 04:14 Promyelocytes # 0.0 K/mm3 02/03/21 04:14 Blast Cells # 0.0 K/mm3 02/03/21 04:14 WBC Morphology Not Reportable 02/03/21 04:14 Hypersegmented Neuts Not Reportable 02/03/21 04:14 Hyposegmented Neuts Not Reportable 02/03/21 04:14 Hypogranular Neuts Not Reportable 02/03/21 04:14 Smudge Cells Not Reportable 02/03/21 04:14 Toxic Granulation Not Reportable 02/03/21 04:14 Toxic Vacuolation Not Reportable 02/03/21 04:14 Dohle Bodies Not Reportable 02/03/21 04:14 Pelger-Huet Anomaly Not Reportable 02/03/21 04:14 Edgar Rods Not Reportable 02/03/21 04:14 Platelet Estimate Consistent w auto 02/03/21 04:14 Clumped Platelets Not Reportable 02/03/21 04:14 Plt Clumps, EDTA Not Reportable 02/03/21 04:14 Large Platelets Not Reportable 02/03/21 04:14 Giant Platelets Not Reportable 02/03/21 04:14 Platelet Satelliting Not Reportable 02/03/21 04:14 Plt Morphology Comment Not Reportable 02/03/21 04:14 RBC Morphology Not Reportable 02/03/21 04:14 Dimorphic RBCs Not Reportable 02/03/21 04:14 Polychromasia Not Reportable 02/03/21 04:14 Hypochromasia Not Reportable 02/03/21 04:14 Poikilocytosis Not Reportable 02/03/21 04:14 Anisocytosis 1+ 02/03/21 04:14 Microcytosis Not Reportable 02/03/21 04:14 Macrocytosis Not Reportable 02/03/21 04:14 Spherocytes Not Reportable 02/03/21 04:14 Pappenheimer Bodies Not Reportable 02/03/21 04:14 Sickle Cells Not Reportable 02/03/21 04:14 Target Cells Not Reportable 02/03/21 04:14 Tear Drop Cells Not Reportable 02/03/21 04:14 Ovalocytes Not Reportable 02/03/21 04:14 Helmet Cells Not Reportable 02/03/21 04:14 [place] Bodies Not Reportable 02/03/21 04:14 [place] Rings Not Reportable 02/03/21 04:14 Hali Cells Not Reportable 02/03/21 04:14 Bite Cells Not Reportable 02/03/21 04:14 Crenated Cell Not Reportable 02/03/21 04:14 Elliptocytes Not Reportable 02/03/21 04:14 Acanthocytes (Spur) Not Reportable 02/03/21 04:14 Rouleaux Not Reportable 02/03/21 04:14 Hemoglobin C Crystals Not Reportable 02/03/21 04:14 Schistocytes Not Reportable 02/03/21 04:14 Malaria parasites Not Reportable 02/03/21 04:14 Declan Bodies Not Reportable 02/03/21 04:14 Hem Pathologist Commnt No 02/03/21 04:14 PT 14.3 Sec. (12.2-14.9) 02/02/21 09:34 INR 1.05 (0.87-1.13) 02/02/21 09:34 D-Dimer 872.83 ng/mlDDU (0-234) H 02/01/21 04:47 Sodium 145 mmol/L (137-145) 02/04/21 05:06 Potassium 4.3 mmol/L (3.6-5.0) D 02/04/21 05:06 Chloride 100.0 mmol/L (98-107) 02/04/21 05:06 Carbon Dioxide 38 mmol/L (22-30) H 02/04/21 05:06 Anion Gap 11 mmol/L 02/04/21 05:06 BUN 35 mg/dL (9-20) H 02/04/21 05:06 Creatinine 1.5 mg/dL (0.8-1.3) H 02/04/21 05:06 Estimated GFR 56 ml/min 02/04/21 05:06 BUN/Creatinine Ratio 23 % 06/29/21 05:06 Glucose 146 mg/dL (75-100) H 02/04/21 05:06 POC Glucose 126 mg/dL (70-105) H 02/04/21 07:42 Lactic Acid 1.30 mmol/L (0.7-2.0) 02/01/21 09:30 Calcium 8.7 mg/dL (8.4-10.2) 02/04/21 05:06 Ferritin 166.6 ng/mL (30.0-300.0) 02/01/21 03:10 Total Bilirubin 0.40 mg/dL (0.1-1.2) 02/01/21 03:10 AST 22 units/L (5-40) 02/01/21 03:10 ALT 19 units/L (7-56) 02/01/21 03:10 Alkaline Phosphatase 116 units/L (35-129) 02/01/21 03:10 Lactate Dehydrogenase 243 units/L (91-180) H 02/01/21 03:10 Troponin T < 0.010 ng/mL (0.00-0.029) 02/01/21 03:10 C-Reactive Protein 1.10 mg/dL (0.00-1.30) 02/01/21 03:10 NT-Pro-B Natriuret Pep 397.4 pg/mL (0-900) 02/01/21 03:10 Total Protein 7.7 g/dL (6.3-8.2) 02/01/21 03:10 Albumin 4.4 g/dL (3.9-5) 02/01/21 03:10 Albumin/Globulin Ratio 1.3 % 02/01/21 03:10 Procalcitonin 0.08 ng/mL (<0.15) 02/01/21 03:10 Urine Color Yellow (Yellow) 02/02/21 01:30 Urine Turbidity Clear (Clear) 02/02/21 01:30 Urine pH 5.0 (5.0-7.0) 02/02/21 01:30 Ur Specific [place] 1.012 (1.003-1.030) 02/02/21 01:30 Urine Protein >500 mg/dL (Negative) 02/02/21 01:30 Urine Glucose (UA) Neg mg/dL (Negative) 02/02/21 01:30 Urine Ketones Neg mg/dL (Negative) 02/02/21 01:30 Urine Blood Neg (Negative) 02/02/21 01:30 Urine Nitrite Neg (Negative) 02/02/21 01:30 Urine Bilirubin Neg (Negative) 02/02/21 01:30 Urine Urobilinogen < 2.0 mg/dL (<2.0) 02/02/21 01:30 Ur Leukocyte Esterase Neg (Negative) 02/02/21 01:30 Urine WBC (Auto) 2.0 /HPF (0.0-6.0) 02/02/21 01:30 Urine RBC (Auto) < 1.0 /HPF (0.0-6.0) 02/02/21 01:30 U Epithel Cells (Auto) < 1.0 /HPF (0-13.0) 02/02/21 01:30 Urine Bacteria (Auto) 1+ /HPF (Negative) 02/02/21 01:30 Urine Mucus Few /HPF 02/02/21 01:30 Urine Creatinine 99.1 mg/dL (0.1-20.0) H 02/02/21 01:30 Protein/Creatinin Ratio 2.21 02/02/21 01:30 Urine Sodium 44 mmol/L 02/02/21 01:30 Urine Total Protein 219 mg/dL (5-11.8) H 02/02/21 01:30 Coronavirus (PCR) Negative (Negative) 02/01/21 Unknown Microbiology: Microbiology 02/01/21 03:04 Peripheral/Venous Blood Culture - Preliminary NO GROWTH AFTER 72 HOURS 02/01/21 03:10 Peripheral/Venous Blood Culture - Preliminary NO GROWTH AFTER 72 HOURS [place]/IV: Voiding Method Urinal Active Medications - Current Medications Current Medications: Generic Name Dose Route Start Last Admin Trade Name Freq PRN Reason Stop Dose Admin Albuterol/Ipratropium 1 ampul 02/02/21 02:00 02/04/21 08:29 Ipratropium/Albuterol Sulfate 3 Ml Ampul.Neb IH 1 ampul Q6HRT REVA Administration Amlodipine Besylate 10 mg 02/04/21 10:00 02/04/21 09:23 Amlodipine 10 Mg Tab PO 10 mg DAILY REVA Administration Atorvastatin Calcium 40 mg 02/03/21 22:00 02/03/21 21:48 Atorvastatin 40 Mg Tab PO 40 mg QHS REVA Administration Carvedilol 25 mg 02/03/21 22:00 02/04/21 09:24 Carvedilol 25 Mg Tab PO 25 mg BID REVA Administration Cholecalciferol 1,000 unit 02/04/21 10:00 02/04/21 09:23 Cholecalciferol (Vit D3) 1000 Unit (25 Mcg) Tab PO 1,000 unit QDAY REVA Administration Furosemide 40 mg 02/02/21 10:00 02/04/21 09:23 Furosemide 40 Mg/4 Ml Inj IV 40 mg QDAY REVA Administration Heparin Sodium (Porcine) 5,000 unit 02/01/21 06:00 02/04/21 05:49 Heparin 5,000 Unit/1 Ml Vial SUB-Q 5,000 unit Q8HR REVA Administration Hydralazine HCl 10 mg 02/01/21 06:21 Hydralazine 20 Mg/1 Ml Inj IV Q4HR PRN Blood Pressure Magnesium Hydroxide 30 ml 02/01/21 05:00 Magnesium Hydroxide (Mom) Oral Liqd Udc PO Q4H PRN Constipation Metformin HCl 500 mg 02/04/21 08:00 02/04/21 09:00 Metformin 500 Mg Tab PO 500 mg QDDIAB REVA Administration Methylprednisolone Sodium Succinate 40 mg 02/01/21 06:00 02/04/21 05:49 Methylprednisolone Sod Succinate 40 Mg/1 Ml Inj IV 40 mg Q8HR REVA Administration Morphine Sulfate 2 mg 02/01/21 05:00 Morphine 2 Mg/1 Ml Inj IV Q4H PRN Pain, Moderate (4-6) Ondansetron HCl 4 mg 02/01/21 05:00 Ondansetron 4 Mg/2 Ml Inj IV Q8H PRN Nausea And Vomiting Sodium Chloride 10 ml 02/01/21 10:00 02/04/21 09:24 Sodium Chloride 0.9% 10 Ml Flush Syringe IV 10 ml BID REVA Administration Sodium Chloride 10 ml 02/01/21 05:00 Sodium Chloride 0.9% 10 Ml Flush Syringe IV PRN PRN LINE FLUSH Nutrition/Malnutrition Assess - Dietary Evaluation Nutrition/Malnutrition Findings: Nutrition Notes Start: 02/01/21 12:20 Freq: Status: Active Protocol: Document 02/03/21 11:22 UMA (Rec: 02/03/21 11:28 UMA [id number]) Nutrition Notes Need for Assessment generated from: MD Order Initial or Follow up Assessment Current Diagnosis Acute Kidney Injury,CKD(stage I-IV),COPD,Heart Failure Other Pertinent Diagnosis pulmonary edema, acute respiratory distress Current Diet Cardiac, Consistent CHO Labs/Tests K 5.7 BUN 36 Cr 4.7 Pertinent Medications Lasix Solu Medrol Height 5 ft 6 in Weight 69.4 kg [place] Body Weight (kg) 64.54 BMI 24.7 Weight Status Appropriate Subjective/Other Information MD order for ONS. FU for education. Pt reports eating a low salt diet. Upon review, pt eats trail mix often which could contribute to fluid issues. Pt given education to reduce Na in diet. Pt states he drinkins Ensure High Protein 1-2x day at home and would like them here. Pt states he did not tolerate Glucerna well. He is eating 75 % of his meals and has no wt loss. Burn Absent Trauma Absent Current % PO Good (75-100%) Minimum of two criteria No physical signs of malnutrition #1 Nutrition Diagnosis Food and nutrition-related knowledge deficit Etiology lack of understanding of prior education As Evidenced by Signs and Symptoms pt eating high salt snacks Nutrition Intervention Change Diet Order: Add renal Add Supplement/Snack (indicate name/kcal Ensure High Protein [place] /protein ) BID Provides kCal: 320 Provides Protein (gm) 32 Teaching Recipient Patient Learning Readiness Good Teaching Methods Discussion Response to Teaching Verbalize understanding Barriers to Learning No Barriers RD phone number provided Yes Patient aware of follow up options Yes Goal #1 Continue to meet needs Follow-Up By: 02/07/21 Additional Comments FU for stable intakes and ONS tolerance
--- NOTE | 2021-02-04 13:12 | Progress Note ---
Assessment and Plan Cultures: Blood culture 02/01/2021 no growth COVID-19 PCR: Negative A/P: 70-year-old male past medical historyhypertension, CHF, COPD admitted with acute hypoxic respiratory failure #Acute hypoxic respiratory failure: Secondary to pneumonia versus edema and COPD. Requiring high flow nasal cannula. #?Bilateral pneumonia: elevated WBC could be from steroids that patient received from paramedics prior to admission and now remains on steroids. Procal is low at 0.08. #ASHLEY: renally adjust medications Recs: -completed antibiotics Jocelynn Aparicio MD, FACP [facility] ([facility] O: [phone] F: [phone] Subjective Date of service: 02/04/21 Interval history: No fever. completed antibiotics. breathing is better Objective - Exam Narrative Exam: Physical Exam: Constitutional: awake, alert Head, Ears, Nose: Normocephalic, atraumatic. External ears, nose normal Eyes: Conjunctivae/corneas clear. No icterus. No ptosis. Neck: Supple, no meningeal signs Cardiovascular: S1, S2 normal. Respiratory: AE decreased b/l GI: Soft, non-tender; bowel sounds normal. No peritoneal signs Musculoskeletal: No pedal edema, no cyanosis. Skin: No rash or abscess Hem/Lymphatic: No palpable cervical or supraclavicular nodes. No lymphangitis Psych: Mood ok. Affect normal Neurological: Awake, alert, oriented. No gross abnormality - Constitutional Vitals: Vital Signs Temp Pulse Resp BP Pulse Ox 97.9 F 69 20 141/72 99 02/04/21 12:05 02/04/21 12:05 02/04/21 12:05 02/04/21 12:05 02/04/21 12:05 Temperature -Last 24 Hours Temperature 97.9 F Temperature 97.0 F Temperature 98.2 F Temperature 97.6 F Temperature 98.2 F Temperature 98.2 F Temperature 98.5 F - Labs CBC & Chem 7: 02/03/21 04:14 02/04/21 05:06 Labs: Abnormal lab results 02/03/21 02/04/21 02/04/21 Range/Units 21:37 05:06 07:42 Carbon Dioxide 38 H (22-30) mmol/L BUN 35 H (9-20) mg/dL Creatinine 1.5 H (0.8-1.3) mg/dL Glucose 146 H (75-100) mg/dL POC Glucose 140 H 126 H (70-105) mg/dL 02/04/21 Range/Units 12:22 Carbon Dioxide (22-30) mmol/L BUN (9-20) mg/dL Creatinine (0.8-1.3) mg/dL Glucose (75-100) mg/dL POC Glucose 144 H (70-105) mg/dL
--- NOTE | 2021-02-04 13:54 | Progress Note ---
Assessment and Plan Acute Respiratory failure COVID-19 serology was negative. Bilateral pneumonia Echocardiogram showed well-preserved left ventricular systolic function with ejection fraction 50-55%. There was mild prominence of the right heart chambers and mild to moderate pulmonary hypertension with pulmonary artery systolic pressures of 46. Conservative cardiac management. Subjective Date of service: 02/04/21 Interval history: Patient is resting in bed comfortably on oxygen via nasal cannula. No cardiac events overnight. No distress noted. Objective Vital Signs Temp Pulse Pulse Pulse Pulse Resp Resp 02/04/21 12:05 97.9 F 69 20 02/04/21 11:00 69 16 02/04/21 10:00 86 12 02/04/21 09:24 74 02/04/21 09:23 75 02/04/21 09:00 78 14 02/04/21 08:41 02/04/21 08:36 66 69 16 02/04/21 08:00 97.0 F L 60 23 02/04/21 07:00 55 L 19 02/04/21 06:00 61 21 02/04/21 05:00 60 18 02/04/21 04:00 98.2 F 62 62 17 02/04/21 03:00 73 18 02/04/21 02:53 75 18 02/04/21 02:40 88 20 02/04/21 02:00 63 18 02/04/21 01:00 62 25 H 02/04/21 00:00 97.6 F 62 68 21 02/03/21 23:00 59 L 14 02/03/21 22:36 79 18 02/03/21 22:30 82 20 02/03/21 22:00 80 14 02/03/21 21:45 65 02/03/21 21:00 89 14 02/03/21 20:00 98.2 F 87 88 20 02/03/21 19:50 75 18 02/03/21 19:00 85 13 02/03/21 18:00 89 13 02/03/21 17:00 87 11 L 02/03/21 16:02 84 18 02/03/21 16:00 98.5 F 02/03/21 15:00 88 15 02/03/21 14:00 100 H 22 Resp BP Pulse Ox 02/04/21 12:05 141/72 99 02/04/21 11:00 159/85 99 02/04/21 10:00 157/83 100 02/04/21 09:24 157/83 02/04/21 09:23 157/83 02/04/21 09:00 148/74 96 02/04/21 08:41 100 02/04/21 08:36 14 02/04/21 08:00 143/72 99 02/04/21 07:00 143/72 97 02/04/21 06:00 146/76 97 02/04/21 05:00 146/76 98 02/04/21 04:00 158/79 96 02/04/21 03:00 144/71 97 02/04/21 02:53 144/71 99 02/04/21 02:40 02/04/21 02:00 148/74 100 02/04/21 01:00 148/74 99 02/04/21 00:00 151/72 99 02/03/21 23:00 166/82 99 02/03/21 22:36 166/82 99 02/03/21 22:30 158/79 98 02/03/21 22:00 166/82 98 02/03/21 21:45 162/89 02/03/21 21:00 162/89 97 02/03/21 20:00 163/85 98 02/03/21 19:50 02/03/21 19:00 163/85 97 02/03/21 18:00 165/82 98 02/03/21 17:00 155/81 97 02/03/21 16:02 175/89 02/03/21 16:00 02/03/21 15:00 175/89 96 02/03/21 14:00 145/76 93 - Physical Examination General: No Apparent Distress HEENT: Positive: PERRL Neck: Positive: neck supple. Negative: JVD/HJR Cardiac: Positive: Reg Rate and Rhythm Lungs: Positive: Decreased Breath Sounds Neuro: Positive: Grossly Intact Abdomen: Positive: Soft Extremities: Absent: edema - Labs and Meds Comprehensive Metabolic Panel 02/04/21 Range/Units 05:06 Sodium 145 (137-145) mmol/L Potassium 4.3 D (3.6-5.0) mmol/L Chloride 100.0 (98-107) mmol/L Carbon Dioxide 38 H (22-30) mmol/L BUN 35 H (9-20) mg/dL Creatinine 1.5 H (0.8-1.3) mg/dL Glucose 146 H (75-100) mg/dL Calcium 8.7 (8.4-10.2) mg/dL
[2021-02-05] MEDS: IPRATROPIUM/ALBUTEROL SULFATE 3 ML AMPUL.NEB IH SCH ×3 (02:51→13:46)
[2021-02-05 06:00] VITALS: BP 138/76
[2021-02-05 06:33] LABS: Calcium 8.7 mg/dL (8.4-10.2)
[2021-02-05] MEDS: methylPREDNISolone Sod Succinate 40 MG/1 ML INJ IV SCH (07:02)
[2021-02-05] MEDS: HEPARIN 5,000 UNIT/1 ML VIAL SUB-Q SCH (07:02)
--- NOTE | 2021-02-05 08:51 | Progress Note ---
Assessment and Plan 70 y/o male with acute on chronic respiratory failure, secondary to COPD exacerbation from either pneumonia or volume overload with prior history of chronic lung disease 02/05/21: back to baseline oxygen flow. Suggest the same steroid taper as listed below. Pulm castellanos, no objection to discharge. Follow up with [facility] 02/04/21: Pulm status continues to improve. Very close to baseline and off HFNC. Stable for transfer to floor. Can likely change to oral steroids tomorrow starting at 60 daily and taper as follows: 60 daily for 4 days, 40 daily for 4 days, 20 daily for 4 days then 10 daily for 4 days then stop. Diuresis per renal . Please see notes from below about other history. Will continue to follow. Patient is followed at the [facility] and has chronic respiratory failure of 2 liters NC at home 01/03. Also per patient he has some "spots" on his lungs from having bad pneumonia many years ago so some of his changes are likely chronic that we are seeing. 1. Despite normal BNP and no evidence of systolic failure, would continue diuresis as long as BP and renal function will allow. Had significant improvement in 24 hours which is atypical for pneumonia as that picture can take 6-8 weeks to resolve. Agree with current dose of steroids. Wean FiO2 for sats >88%. Continue IMCU care for now. Subjective Date of service: 02/05/21 Interval history: No acute events. No on tele floor and last documented o2 was 1.5 liters. baseline at home is 2. Objective Vital Signs - 12hr 02/04/21 02/04/21 02/04/21 21:08 22:07 22:38 Temperature Pulse Rate 76 Pulse Rate [ 77 Anterior Bilateral Throughout] Pulse Rate [ Posterior Bilateral Throughout] Respiratory Rate Respiratory 18 Rate [Anterior Bilateral Throughout] Respiratory Rate [Posterior Bilateral Throughout] Blood Pressure 146/76 O2 Sat by Pulse 98 100 Oximetry 02/05/21 02/05/21 02/05/21 00:00 00:26 01:00 Temperature 98.1 F Pulse Rate 83 66 77 Pulse Rate [ Anterior Bilateral Throughout] Pulse Rate [ Posterior Bilateral Throughout] Respiratory 20 21 Rate Respiratory Rate [Anterior Bilateral Throughout] Respiratory Rate [Posterior Bilateral Throughout] Blood Pressure 115/64 O2 Sat by Pulse 98 94 100 Oximetry 02/05/21 02/05/21 02/05/21 04:00 04:41 07:13 Temperature 97.5 F L Pulse Rate 63 63 Pulse Rate [ Anterior Bilateral Throughout] Pulse Rate [ Posterior Bilateral Throughout] Respiratory 28 H Rate Respiratory Rate [Anterior Bilateral Throughout] Respiratory Rate [Posterior Bilateral Throughout] Blood Pressure 138/76 O2 Sat by Pulse 97 98 Oximetry 02/05/21 02/05/21 02/05/21 07:47 08:30 08:32 Temperature Pulse Rate 69 Pulse Rate [ Anterior Bilateral Throughout] Pulse Rate [ 76 Posterior Bilateral Throughout] Respiratory Rate Respiratory Rate [Anterior Bilateral Throughout] Respiratory 18 Rate [Posterior Bilateral Throughout] Blood Pressure O2 Sat by Pulse 100 Oximetry Constitutional: no acute distress, alert Eyes: non-icteric ENT: oropharynx moist, other (no jvd) Neck: supple, no JVD Ascultation: Bilateral: diminished breath sounds Cardiovascular: regular rate and rhythm Gastrointestinal: normoactive bowel sounds, soft, non-tender Extremities: edema CBC and BMP: 02/03/21 04:14 02/05/21 05:06 ABG, PT/INR, D-dimer: PT/INR, D-dimer PT 14.3 Sec. (12.2-14.9) 02/02/21 09:34 INR 1.05 (0.87-1.13) 02/02/21 09:34 D-Dimer 872.83 ng/mlDDU (0-234) H 02/01/21 04:47 Abnormal lab findings: Abnormal Labs 02/01/21 02/01/21 02/01/21 03:10 03:10 03:10 WBC 14.7 H Hgb Hct 35.2 L MCHC RDW 18.6 H Lymph % (Auto) 9.8 L [place] # (Auto) 1.1 H Eos # (Auto) 0.5 H Seg Neutrophils % 78.9 H Seg Neuts % (Manual) Lymphocytes % (Manual) Seg Neutrophils # 11.6 H Seg Neutrophils # Man Lymphocytes # (Manual) D-Dimer Potassium 5.1 H Chloride 97.3 L Carbon Dioxide 31 H BUN Creatinine 1.8 H Glucose 148 H POC Glucose Lactate Dehydrogenase 243 H Urine Creatinine Urine Total Protein 02/01/21 02/01/21 02/02/21 04:47 13:07 01:30 WBC Hgb Hct MCHC RDW Lymph % (Auto) [place] # (Auto) Eos # (Auto) Seg Neutrophils % Seg Neuts % (Manual) Lymphocytes % (Manual) Seg Neutrophils # Seg Neutrophils # Man Lymphocytes # (Manual) D-Dimer 872.83 H Potassium Chloride Carbon Dioxide BUN Creatinine Glucose POC Glucose 169 H Lactate Dehydrogenase Urine Creatinine 99.1 H Urine Total Protein 219 H 02/02/21 02/02/21 02/02/21 07:44 09:34 09:34 WBC 14.6 H Hgb 10.8 L Hct 33.9 L MCHC RDW 19.1 H Lymph % (Auto) [place] # (Auto) Eos # (Auto) Seg Neutrophils % Seg Neuts % (Manual) 94.0 H Lymphocytes % (Manual) 3.0 L Seg Neutrophils # Seg Neutrophils # Man 13.7 H Lymphocytes # (Manual) 0.4 L D-Dimer Potassium Chloride Carbon Dioxide 34 H BUN 29 H Creatinine 1.8 H Glucose 168 H POC Glucose 127 H Lactate Dehydrogenase Urine Creatinine Urine Total Protein 02/02/21 02/02/21 02/02/21 11:33 16:03 21:39 WBC Hgb Hct MCHC RDW Lymph % (Auto) [place] # (Auto) Eos # (Auto) Seg Neutrophils % Seg Neuts % (Manual) Lymphocytes % (Manual) Seg Neutrophils # Seg Neutrophils # Man Lymphocytes # (Manual) D-Dimer Potassium Chloride Carbon Dioxide BUN Creatinine Glucose POC Glucose 192 H 144 H 156 H Lactate Dehydrogenase Urine Creatinine Urine Total Protein 02/03/21 02/03/21 02/03/21 04:14 04:14 07:37 WBC 16.2 H Hgb 10.6 L Hct 34.0 L MCHC 31 L RDW 19.1 H Lymph % (Auto) [place] # (Auto) Eos # (Auto) Seg Neutrophils % Seg Neuts % (Manual) 96.0 H Lymphocytes % (Manual) 2.0 L Seg Neutrophils # Seg Neutrophils # Man 15.6 H Lymphocytes # (Manual) 0.3 L D-Dimer Potassium 5.7 H Chloride Carbon Dioxide 37 H BUN 36 H Creatinine 1.7 H Glucose 151 H POC Glucose 141 H Lactate Dehydrogenase Urine Creatinine Urine Total Protein 02/03/21 02/03/21 02/04/21 11:05 21:37 05:06 WBC Hgb Hct MCHC RDW Lymph % (Auto) [place] # (Auto) Eos # (Auto) Seg Neutrophils % Seg Neuts % (Manual) Lymphocytes % (Manual) Seg Neutrophils # Seg Neutrophils # Man Lymphocytes # (Manual) D-Dimer Potassium Chloride Carbon Dioxide 38 H BUN 35 H Creatinine 1.5 H Glucose 146 H POC Glucose 211 H 140 H Lactate Dehydrogenase Urine Creatinine Urine Total Protein 02/04/21 02/04/21 02/04/21 07:42 12:22 16:14 WBC Hgb Hct MCHC RDW Lymph % (Auto) [place] # (Auto) Eos # (Auto) Seg Neutrophils % Seg Neuts % (Manual) Lymphocytes % (Manual) Seg Neutrophils # Seg Neutrophils # Man Lymphocytes # (Manual) D-Dimer Potassium Chloride Carbon Dioxide BUN Creatinine Glucose POC Glucose 126 H 144 H 107 H Lactate Dehydrogenase Urine Creatinine Urine Total Protein 02/05/21 02/05/21 05:06 07:37 WBC Hgb Hct MCHC RDW Lymph % (Auto) [place] # (Auto) Eos # (Auto) Seg Neutrophils % Seg Neuts % (Manual) Lymphocytes % (Manual) Seg Neutrophils # Seg Neutrophils # Man Lymphocytes # (Manual) D-Dimer Potassium Chloride Carbon Dioxide 38 H BUN 40 H Creatinine 1.5 H Glucose 130 H POC Glucose 117 H Lactate Dehydrogenase Urine Creatinine Urine Total Protein
--- NOTE | 2021-02-05 09:10 | Progress Note ---
Assessment and Plan Impression: * Acute kidney injury vs underlying CKD * Acute hypoxic respiratory failure secondary to pulmonary edema vs infectious etilogy vs COPD exacerbation --COVID 19 negative * Congestive heart failure * Hypertension * Proteinuria - UPCR 2.2grams * Hyperkalemia Plan: * No acute indication for renal replacement therapy. Renal function is stable. Patient likely has underlying CKD * Continue diuresis as needed * Serologic work up pending * Renal u/s reviewed - right 10.9cm, left 10cm; echogenic kidneys * TTE showing ejection fraction of 50 to 55% * Abx/steroids per pulmonary medicine * Strict I/O * Avoid potential nephrotoxins * Dose medications for renal function * Hyperkalemia has been corrected * Hold off on adding an GRISELDA inhibitor or ARB at this time * No objection to discharge from renal standpoint. He will need outpatient nephrology follow-up Subjective Date of service: 02/05/21 Interval history: Patient is comfortable. He has been transferred out of [facility]. Currently on oxygen supplementation via nasal cannula at 2 L/min Objective - Vital Signs Vital signs: Vital Signs - 12hr 02/04/21 02/04/21 02/04/21 21:08 22:07 22:38 Temperature Pulse Rate 76 Pulse Rate [ 77 Anterior Bilateral Throughout] Pulse Rate [ Posterior Bilateral Throughout] Respiratory Rate Respiratory 18 Rate [Anterior Bilateral Throughout] Respiratory Rate [Posterior Bilateral Throughout] Blood Pressure 146/76 O2 Sat by Pulse 98 100 Oximetry 02/05/21 02/05/21 02/05/21 00:00 00:26 01:00 Temperature 98.1 F Pulse Rate 83 66 77 Pulse Rate [ Anterior Bilateral Throughout] Pulse Rate [ Posterior Bilateral Throughout] Respiratory 20 21 Rate Respiratory Rate [Anterior Bilateral Throughout] Respiratory Rate [Posterior Bilateral Throughout] Blood Pressure 115/64 O2 Sat by Pulse 98 94 100 Oximetry 02/05/21 02/05/21 02/05/21 04:00 04:41 07:13 Temperature 97.5 F L Pulse Rate 63 63 Pulse Rate [ Anterior Bilateral Throughout] Pulse Rate [ Posterior Bilateral Throughout] Respiratory 28 H Rate Respiratory Rate [Anterior Bilateral Throughout] Respiratory Rate [Posterior Bilateral Throughout] Blood Pressure 138/76 O2 Sat by Pulse 97 98 Oximetry 02/05/21 02/05/21 02/05/21 07:47 08:30 08:32 Temperature Pulse Rate 69 Pulse Rate [ Anterior Bilateral Throughout] Pulse Rate [ 76 Posterior Bilateral Throughout] Respiratory Rate Respiratory Rate [Anterior Bilateral Throughout] Respiratory 18 Rate [Posterior Bilateral Throughout] Blood Pressure O2 Sat by Pulse 100 Oximetry - General Appearance General appearance: well-developed, well-nourished, appears stated age EENT: PERRL, mucous membranes moist Neck: no JVD, no thyromegaly, no carotid bruit, supple Respiratory: Present: Clear to Ascultation Cardiology: regular, normal heart rate, S1S2, no murmurs Gastrointestinal: normal, normoactive bowel sounds Integumentary: no rash, other (No edema) - Lab 02/03/21 04:14 02/05/21 05:06 Most recent lab results Calcium 8.7 mg/dL (8.4-10.2) 02/05/21 05:06 Urine Creatinine 99.1 mg/dL (0.1-20.0) H 02/02/21 01:30 Urine Sodium 44 mmol/L 02/02/21 01:30 Urine Total Protein 219 mg/dL (5-11.8) H 02/02/21 01:30 Medications & Allergies - Medications Allergies/Adverse Reactions: Allergies shellfish derived Allergy (Verified 02/01/21 03:16) Itching Home Medications: Home Medications Medication Instructions Recorded Confirmed Last Taken Type AtorvaSTATin [Lipitor] 40 mg PO DAILY 02/02/21 02/03/21 01/31/21 History Cholecalciferol Vit D3 [Vitamin D3 2,000 unit PO QDAY 02/02/21 02/03/21 01/31/21 History 1,000 UNIT TAB] Furosemide [Lasix] 40 mg PO BID 02/02/21 02/03/21 01/31/21 History amLODIPine [Norvasc] 10 mg PO DAILY 02/02/21 02/02/21 01/31/21 History carvediloL [Coreg] 12.5 mg PO BID 02/02/21 02/03/21 01/31/21 History metFORMIN [Glucophage] 500 mg PO QDAY 02/02/21 02/02/21 01/31/21 History Aspirin EC 81 mg PO DAILY 02/03/21 02/03/21 Unknown History Ferrous Sulfate 325 mg PO DAILY 02/03/21 02/03/21 Unknown History Loratadine 10 mg PO PRN 02/03/21 02/03/21 Unknown History Losartan 100 mg PO DAILY 02/03/21 02/03/21 Unknown History Tamsulosin 0.4 mg PO DAILY 02/03/21 02/03/21 Unknown History Active Medications: Generic Name Dose Route Start Last Admin Trade Name Freq PRN Reason Stop Dose Admin Albuterol/Ipratropium 1 ampul 02/02/21 02:00 02/05/21 08:30 Ipratropium/Albuterol Sulfate 3 Ml Ampul.Neb IH 1 ampul Q6HRT REVA Administration Amlodipine Besylate 10 mg 02/04/21 10:00 02/04/21 09:23 Amlodipine 10 Mg Tab PO 10 mg DAILY REVA Administration Atorvastatin Calcium 40 mg 02/03/21 22:00 02/04/21 22:39 Atorvastatin 40 Mg Tab PO 40 mg QHS REVA Administration Carvedilol 25 mg 02/03/21 22:00 02/04/21 22:38 Carvedilol 25 Mg Tab PO 25 mg BID REVA Administration Cholecalciferol 1,000 unit 02/04/21 10:00 02/04/21 09:23 Cholecalciferol (Vit D3) 1000 Unit (25 Mcg) Tab PO 1,000 unit QDAY REVA Administration Furosemide 40 mg 02/02/21 10:00 02/04/21 09:23 Furosemide 40 Mg/4 Ml Inj IV 40 mg QDAY REVA Administration Heparin Sodium (Porcine) 5,000 unit 02/01/21 06:00 02/05/21 07:02 Heparin 5,000 Unit/1 Ml Vial SUB-Q 5,000 unit Q8HR REVA Administration Hydralazine HCl 10 mg 02/01/21 06:21 Hydralazine 20 Mg/1 Ml Inj IV Q4HR PRN Blood Pressure Magnesium Hydroxide 30 ml 02/01/21 05:00 Magnesium Hydroxide (Mom) Oral Liqd Udc PO Q4H PRN Constipation Metformin HCl 500 mg 02/04/21 08:00 02/04/21 09:00 Metformin 500 Mg Tab PO 500 mg QDDIAB REVA Administration Methylprednisolone Sodium Succinate 40 mg 02/01/21 06:00 02/05/21 07:02 Methylprednisolone Sod Succinate 40 Mg/1 Ml Inj IV 40 mg Q8HR REVA Administration Morphine Sulfate 2 mg 02/01/21 05:00 Morphine 2 Mg/1 Ml Inj IV Q4H PRN Pain, Moderate (4-6) Ondansetron HCl 4 mg 02/01/21 05:00 02/04/21 22:39 Ondansetron 4 Mg/2 Ml Inj IV 4 mg Q8H PRN Administration Nausea And Vomiting Sodium Chloride 10 ml 02/01/21 10:00 02/04/21 22:39 Sodium Chloride 0.9% 10 Ml Flush Syringe IV 10 ml BID REVA Administration Sodium Chloride 10 ml 02/01/21 05:00 Sodium Chloride 0.9% 10 Ml Flush Syringe IV PRN PRN LINE FLUSH
[2021-02-05] MEDS: carvediloL 25 MG TAB PO SCH (09:18)
[2021-02-05] MEDS: metFORMIN 500 MG TAB PO SCH (09:18)
[2021-02-05] MEDS: CHOLECALCIFEROL (VIT D3) 1000 UNIT (25 mcg) TAB PO SCH (09:18)
[2021-02-05] MEDS: amLODIPine 10 MG TAB PO SCH (09:18)
[2021-02-05] MEDS: FUROSEMIDE 40 MG/4 ML INJ IV SCH (09:18)
--- NOTE | 2021-02-05 10:11 | Discharge Summary ---
Providers - Providers Date of Admission: 02/01/21 04:56 Date of discharge: 02/05/21 Attending physician: VAHID DAVILA MD 02/01/21 05:00 Consult to Physician [CONS] Routine Comment: Consulting Provider: JOSE DAVID BRENNAN Physician Instructions: Reason For Exam: Respiratory Failure-R/O Pneumonia,Covid-19,Hypoxia Consult to Physician [CONS] Routine Comment: Consulting Provider: FAISAL CLAROS Physician Instructions: Reason For Exam: ASHLEY 02/01/21 05:01 Consult to Dietitian/Nutrition [CONS] Routine Physician Instructions: Reason For Exam: Reason for Consult: Diet education Consult to Physician [CONS] Routine Comment: Consulting Provider: MANSI MACHUCA Physician Instructions: Reason For Exam: Respiratory failure- On Bipap 02/01/21 06:03 Consult to Cardiology [CONS] Routine Consulting Provider: REAGAN CHRISTENSEN Reason For Exam: CHF EXACERBATION [facility] Reason for admission: Acute on chronic respiratory failure Condition: Stable Hospital course: Acute respiratory failure with hypoxemia Patient off BiPAP Antibiotics have been discontinued Breathing treatments and steroids Pulmonology following COPD exacerbation Continue nebulizers and steroids Baseline oxygen 2 L at home 01/03 Hypertensive emergency IV hydralazine as needed Diastolic heart failure with preserved ejection fraction Cardiology consulted Medical management only Lasix Pulmonary edema Echocardiogram reviewed, LVEF 50 to 55% with diastolic dysfunction Cardiology following Lasix Acute kidney injury Nephrology following No signs or indications for dialysis at this time DVT prophylaxis: Heparin CODE STATUS: Full Disposition: Transfer to the floor, wean patient wean patient down to 2 L of oxygen, continue diuresis, continue steroids. Anticipate discharge in the next 24 hours. History Interval history: 02/01/2021. Patient with acute respiratory failure likely secondary to bilateral pneumonia, COPD exacerbation and possibility of PE. Patient does have elevated D-dimer. Check VQ scan given the elevated creatinine. Doubt heart failure given the normal BNP and no evidence of pulmonary edema on x-ray. Follow-up echocardiogram and cardiology recommendations. Continue O2 supplementation and BiPAP as clinically indicated. Patient's creatinine is elevated at 1.8 and we do not have a baseline creatinine to compare. Check renal ultrasound and nephrology consultation pending. I suspect patient has CKD. Continue IV antibiotics and follow-up blood and sputum cultures. Pulmonary consultation 02/02/2021. Renal ultrasound shows echogenic kidneys characteristic for medical renal disease. Patient likely has CKD. Patient currently requiring high flow nasal cannula 30 L/min with an FiO2 of 60%. Continue IV antibiotics per ID recommendations for pneumonia. Covid PCR negative. Blood cultures negative. Follow-up procalcitonin. VQ scan pending. 02/03/2021. Patient with high flow nasal cannula 20 L/min with an FiO2 of 40%. Continue to wean FiO2 as tolerated. Nephrology recommends no acute indication for renal replacement therapy. Continue IV diuresis. Serologic work-up pending. Renal ultrasound as noted above. Echocardiogram pending. Continue bronchodilators/nebulizers, IV steroids and IV antibiotics. Give Kayexalate 60 g x 1 for hyperkalemia. Nephrology following. 02/04/2021: Patient on nasal cannula oxygen, only on 3 to 4 L. Patient is stable for transfer to the floor. We will continue diuresing patient since that seems to have helped significantly. Patient states that he is feeling better today. 02/05/2021: Patient seen and examined, at baseline with 2 L of oxygen. Breathing is improved. Patient will go home on steroid taper. Disposition: DC- TO HOME OR SELFCARE Final Discharge Diagnosis (Prints w/discharge instructions): Acute on chronic respiratory failure with acute hypoxemia. COPD exacerbation. Hypertensive urgency. Pulmonary edema. Diastolic heart failure with preserved ejection fraction. Acute kidney injury Time spent for discharge: 35 minutes Core Measure Documentation - Palliative Care Palliative Care/ Comfort Measures: Not Applicable - Core Measures Any of the following diagnoses?: none Exam - Physical Exam Narrative exam: General appearance: no acute distress, well-nourished EENT: PERRL, EOM intact, hearing intact, clear oral mucosa Neck: Present: supple, normal ROM Respiratory: Nasal cannula oxygen, bilateral CTA, negative: rales, rhonchi, wheezing Cardiovascular: Regular rate/rhythm, Normal S1 & S2. No gallop, rub Extremities: no ischemia, No edema, normal temperature, normal color, Full ROM Abdominal: soft, no tenderness, non-distended, normal bowel sounds Integumentary: Present: clear, warm, dry no wounds, no erythema noted Psychiatric: appropriate mood/affect, intact judgment & insight Neurologic: CNII-XII intact, moves all extremities, no sensory or motor abnormalities - Constitutional Vitals: Temp Pulse Resp BP Pulse Ox 97.5 F L 76 18 138/76 100 02/05/21 04:41 02/05/21 08:30 02/05/21 08:30 02/05/21 04:41 02/05/21 08:32 Plan Activity: no restrictions Diet: low salt Follow up with: YVONNE PENA MD [Primary Care Provider] - 7 Days Prescriptions: amLODIPine 10 mg PO DAILY #90 carvediloL [Coreg] 25 mg PO BID #60 tablet predniSONE [Deltasone] 60 mg PO QDAY 4 Days #12 tab predniSONE [Deltasone] 40 mg PO DAILY 4 Days #8 tablet predniSONE [Deltasone] 20 mg PO QDAY 4 Days #4 tab Furosemide [Lasix] 40 mg PO BID #90 AtorvaSTATin [Lipitor] 40 mg PO DAILY #90 Losartan 100 mg PO DAILY #90 predniSONE 10 mg PO QDAY 4 Days #4 tab
--- NOTE | 2021-02-05 10:47 | Progress Note ---
Assessment and Plan Acute Respiratory failure COVID-19 serology was negative. Bilateral pneumonia Echocardiogram showed well-preserved left ventricular systolic function with ejection fraction 50-55%. There was mild prominence of the right heart chambers and mild to moderate pulmonary hypertension with pulmonary artery systolic pressures of 46. Conservative cardiac management. Subjective Date of service: 02/05/21 Interval history: No cardiac events overnight. No distress noted. Objective Vital Signs Temp Pulse Pulse Pulse Resp Resp Resp 02/05/21 08:32 02/05/21 08:30 76 18 02/05/21 07:47 69 02/05/21 07:13 02/05/21 04:41 97.5 F L 63 28 H 02/05/21 04:00 63 02/05/21 01:00 77 21 02/05/21 00:26 98.1 F 66 20 02/05/21 00:00 83 02/04/21 22:38 76 02/04/21 22:07 77 18 02/04/21 21:08 02/04/21 20:00 71 02/04/21 19:36 97.8 F 76 20 02/04/21 16:13 98.7 F 71 20 02/04/21 16:06 71 02/04/21 14:40 94 H 72 18 18 02/04/21 12:05 97.9 F 69 20 02/04/21 11:00 69 16 BP Pulse Ox 02/05/21 08:32 100 02/05/21 08:30 02/05/21 07:47 02/05/21 07:13 98 02/05/21 04:41 138/76 97 02/05/21 04:00 02/05/21 01:00 100 02/05/21 00:26 115/64 94 02/05/21 00:00 98 02/04/21 22:38 146/76 02/04/21 22:07 100 02/04/21 21:08 98 02/04/21 20:00 98 02/04/21 19:36 146/76 94 02/04/21 16:13 132/68 98 02/04/21 16:06 02/04/21 14:40 02/04/21 12:05 141/72 99 02/04/21 11:00 159/85 99 - Physical Examination General: No Apparent Distress HEENT: Positive: PERRL Neck: Positive: neck supple Cardiac: Positive: Reg Rate and Rhythm Lungs: Positive: Decreased Breath Sounds Neuro: Positive: Grossly Intact Extremities: Absent: edema - Labs and Meds Comprehensive Metabolic Panel 02/05/21 Range/Units 05:06 Sodium 142 (137-145) mmol/L Potassium 4.2 (3.6-5.0) mmol/L Chloride 98.2 (98-107) mmol/L Carbon Dioxide 38 H (22-30) mmol/L BUN 40 H (9-20) mg/dL Creatinine 1.5 H (0.8-1.3) mg/dL Glucose 130 H (75-100) mg/dL Calcium 8.7 (8.4-10.2) mg/dL
--- NOTE | 2021-02-05 11:39 | Progress Note ---
Assessment and Plan Cultures: Blood culture 02/01/2021 no growth COVID-19 PCR: Negative A/P: 70-year-old male past medical history of hypertension, CHF, COPD admitted with acute hypoxic respiratory failure #Acute hypoxic respiratory failure: Secondary to pneumonia versus edema and COPD. Requiring high flow nasal cannula. #?Bilateral pneumonia: elevated WBC could be from steroids that patient received from paramedics prior to admission and now remains on steroids. Procal is low at 0.08. #ASHLEY: renally adjust medications Recs: -doing well off abx. ID will sign off. Please call with questions. Jocelynn Aparicio MD, FACP [facility] ([facility]) O: [phone] F: [phone] Subjective Date of service: 02/05/21 Interval history: No fever. Breathing improving. Remains off abx. Objective - Exam Narrative Exam: Physical Exam: Constitutional: awake, alert Head, Ears, Nose: Normocephalic, atraumatic. External ears, nose normal Eyes: Conjunctivae/corneas clear. No icterus. No ptosis. Neck: Supple, no meningeal signs Cardiovascular: S1, S2 normal. Respiratory: AE decreased b/l GI: Soft, non-tender; bowel sounds normal. No peritoneal signs Musculoskeletal: No pedal edema, no cyanosis. Skin: No rash or abscess Hem/Lymphatic: No palpable cervical or supraclavicular nodes. No lymphangitis Psych: Mood ok. Affect normal Neurological: Awake, alert, oriented. No gross abnormality - Constitutional Vitals: Vital Signs Temp Pulse Resp BP Pulse Ox 97.5 F L 76 18 138/76 100 02/05/21 04:41 02/05/21 08:30 02/05/21 08:30 02/05/21 04:41 02/05/21 08:32 Temperature -Last 24 Hours Temperature 97.5 F Temperature 98.1 F Temperature 97.8 F Temperature 98.7 F Temperature 97.9 F - Labs CBC & Chem 7: 02/03/21 04:14 02/05/21 05:06 Labs: Abnormal lab results 02/04/21 02/04/21 02/05/21 Range/Units 12:22 16:14 05:06 Carbon Dioxide 38 H (22-30) mmol/L BUN 40 H (9-20) mg/dL Creatinine 1.5 H (0.8-1.3) mg/dL Glucose 130 H (75-100) mg/dL POC Glucose 144 H 107 H (70-105) mg/dL 02/05/21 Range/Units 07:37 Carbon Dioxide (22-30) mmol/L BUN (9-20) mg/dL Creatinine (0.8-1.3) mg/dL Glucose (75-100) mg/dL POC Glucose 117 H (70-105) mg/dL
[2021-02-06 11:32] LABS: Myeloperoxidase Antibody <1.0 AI (<1.0)
== END 2021-02-05 14:06 | disposition home or self-care (01) | DRG 871 ==
LOC: ED 02:47 → IMCU 04:56 → 4A 02-04 11:57
PROVIDERS: ADMIT Internal Medicine Geriatric Medicine; ATTEND Family Medicine
DX: A41.9 Sepsis, unspecified organism (principal); J96.01 Acute respiratory failure with hypoxia; J18.9 Pneumonia, unspecified organism; I16.1 Hypertensive emergency; J81.1 Chronic pulmonary edema; N17.9 Acute kidney failure, unspecified; J44.0 Chronic obstructive pulmonary disease with (acute) lower respiratory infection; J44.1 Chronic obstructive pulmonary disease with (acute) exacerbation; I50.30 Unspecified diastolic (congestive) heart failure; Z20.822 Contact with and (suspected) exposure to COVID-19; I11.0 Hypertensive heart disease with heart failure; E11.9 Type 2 diabetes mellitus without complications; E87.5 Hyperkalemia; Z91.013 Allergy to seafood; Z87.891 Personal history of nicotine dependence
CPT/HCPCS: 36415; 71045; 76770; 78580; 80048; 80053; 81001; 82140; 82570; 82728; 82962; 83615; 83880; 84145; 84156; 84300; 84484; 85007; 85025; 85379; 85610; 86021; 86140; 86160; 87040; 93005; 93306; 94640; 94660; 96365; 96375; G0378; A9540; J0456; J0696; J1644; J1940; J2405; J2765; J2920; U0003

== ENCOUNTER 2022-02-06 03:01 | Emergency (ER) | payer MEDICARE, OTHER ==
[2022-02-06 03:08] VITALS: BP 128/60
--- NOTE | 2022-02-06 08:02 | XRay Report ---
CHEST 2 VIEWS INDICATION / CLINICAL INFORMATION: sob. COMPARISON: 02/03/2021 FINDINGS: SUPPORT DEVICES: None. HEART / MEDIASTINUM: No significant abnormality. LUNGS / PLEURA: Bilateral calcified pleural plaques are unchanged. This could indicate previous asbes tos exposure or other pleural insult. Mild improvement in the bibasilar airspace opacities is demonst rated, particularly in the right perihilar region. No new infiltrate, large pleural effusion or pneum othorax. ADDITIONAL FINDINGS: No significant additional findings. IMPRESSION: 1. Mild improvement in the bibasilar lung opacities. No new acute process is appreciated. Signer Name: Rao Su Jr, MD Signed: 02/06/2022 7:58 AM Workstation Name: [id number]
[2022-02-06] MEDS ORDERED: chlorproMAZINE 50 MG/2 ML INJ IM ONE (08:36)
--- NOTE | 2022-02-06 10:20 | Emergency Department Report ---
ED Shortness of Breath HPI - General Chief Complaint: Dyspnea/Respdistress Stated Complaint: SOB Time Seen by Provider: 02/06/22 07:15 Source: patient Mode of arrival: Ambulatory Limitations: No Limitations - History of Present Illness Initial Comments: 71-year-old black male with a past medical history of hypertension, CHF, CKD, and COPD with home oxygen at 3 L presents to the emergency department for evaluation of shortness of breath. He states that he has had hiccups persistently for the last 2 days and it makes it feels like it is hard for him to catch his breath. He states that he does not have shortness of breath like he cannot breathe but just that he Makes It Much Harder to Breathe. He States That When He Lies down It Is Even Harder. He Denies Chest Pain, nausea, vomiting, dizziness, and fever. Patient noted to be having active hiccups during assessment. MD Complaint: shortness of breath -: Gradual, days(s) (2) Pain Scale: 0 Worsens With: lying flat Known History Of: COPD, congestive heart failure Associated Symptoms: denies other symptoms Treatments Prior to Arrival: none - Related Data Home Oxygen Therapy: Yes Home Oxygen Amount: 3 Liters Home Medications Medication Instructions Recorded Confirmed Last Taken Cholecalciferol Vit D3 [Vitamin D3 2,000 unit PO QDAY 02/02/21 02/03/21 01/31/21 1,000 UNIT TAB] metFORMIN [Glucophage] 500 mg PO QDAY 02/02/21 02/02/21 01/31/21 Aspirin EC 81 mg PO DAILY 02/03/21 02/03/21 Unknown Ferrous Sulfate 325 mg PO DAILY 02/03/21 02/03/21 Unknown Loratadine 10 mg PO PRN 02/03/21 02/03/21 Unknown Tamsulosin 0.4 mg PO DAILY 02/03/21 02/03/21 Unknown Previous Rx's Medication Instructions Recorded Last Taken Type AtorvaSTATin [Lipitor] 40 mg PO DAILY #02/05/21 Unknown Rx Furosemide [Lasix] 40 mg PO BID #02/05/21 Unknown Rx Losartan 100 mg PO DAILY #02/05/21 Unknown Rx amLODIPine 10 mg PO DAILY #02/05/21 Unknown Rx carvediloL [Coreg] 25 mg PO BID #60 tablet 02/05/21 Unknown Rx predniSONE 10 mg PO QDAY 4 Days #4 tab 02/05/21 Unknown Rx predniSONE [Deltasone] 20 mg PO QDAY 4 Days #4 tab 02/05/21 Unknown Rx predniSONE [Deltasone] 40 mg PO DAILY 4 Days #8 tablet 02/05/21 Unknown Rx predniSONE [Deltasone] 60 mg PO QDAY 4 Days #12 tab 02/05/21 Unknown Rx chlorproMAZINE [Thorazine] 25 mg PO Q4H PRN #15 tab 02/06/22 Unknown Rx Allergies Allergy/AdvReac Type Severity Reaction Status Date / Time shellfish derived Allergy Itching Verified 02/01/21 03:16 ED Review of Systems ROS: Stated complaint: SOB Other details as noted in HPI Comment: All other systems reviewed and negative Constitutional: denies: chills, fever Eyes: denies: vision change ENT: denies: throat pain Respiratory: denies: cough, shortness of breath, SOB with exertion, SOB at rest, stridor, wheezing Cardiovascular: denies: chest pain, palpitations, dyspnea on exertion, orthopnea, edema, syncope, paroxysmal nocturnal dyspnea Gastrointestinal: denies: abdominal pain, nausea, vomiting, diarrhea, hematemesis, melena, hematochezia Genitourinary: denies: urgency, dysuria Musculoskeletal: denies: back pain Neurological: denies: headache, weakness ED Past Medical Hx - Past Medical History Hx Hypertension: Yes Hx CVA: No Hx Heart Attack/AMI: No Hx Congestive Heart Failure: Yes Hx Diabetes: Yes Hx Deep Vein Thrombosis: No Hx Pulmonary Embolism: No Hx GERD: No Hx Liver Disease: No Hx Renal Disease: No Hx Sickle Cell Disease: No Hx Arthritis: No Hx Headaches / Migraines: No Hx Seizures: No Hx Kidney Stones: No Hx Psychiatric Treatment: No Hx Asthma: No Hx COPD: Yes Hx Tuberculosis: No Hx Dementia: No Hx HIV: No - Surgical History Hx Appendectomy: Yes - Social History Smoking Status: Former Smoker - Medications Home Medications: Home Medications Medication Instructions Recorded Confirmed Last Taken Type Cholecalciferol Vit D3 [Vitamin D3 2,000 unit PO QDAY 02/02/21 02/03/21 01/31/21 History 1,000 UNIT TAB] metFORMIN [Glucophage] 500 mg PO QDAY 02/02/21 02/02/21 01/31/21 History Aspirin EC 81 mg PO DAILY 02/03/21 02/03/21 Unknown History Ferrous Sulfate 325 mg PO DAILY 02/03/21 02/03/21 Unknown History Loratadine 10 mg PO PRN 02/03/21 02/03/21 Unknown History Tamsulosin 0.4 mg PO DAILY 02/03/21 02/03/21 Unknown History AtorvaSTATin [Lipitor] 40 mg PO DAILY #90 02/05/21 Unknown Rx Furosemide [Lasix] 40 mg PO BID #90 02/05/21 Unknown Rx Losartan 100 mg PO DAILY #90 02/05/21 Unknown Rx amLODIPine 10 mg PO DAILY #90 02/05/21 Unknown Rx carvediloL [Coreg] 25 mg PO BID #60 tablet 02/05/21 Unknown Rx predniSONE 10 mg PO QDAY 4 Days #4 tab 02/05/21 Unknown Rx predniSONE [Deltasone] 20 mg PO QDAY 4 Days #4 tab 02/05/21 Unknown Rx predniSONE [Deltasone] 40 mg PO DAILY 4 Days #8 tablet 02/05/21 Unknown Rx predniSONE [Deltasone] 60 mg PO QDAY 4 Days #12 tab 02/05/21 Unknown Rx chlorproMAZINE [Thorazine] 25 mg PO Q4H PRN #15 tab 02/06/22 Unknown Rx ED Physical Exam - General Limitations: No Limitations General appearance: alert, in no apparent distress - Head Head exam: Present: atraumatic, normocephalic - Eye Eye exam: Present: normal appearance, PERRL. Absent: scleral icterus, conjunctival injection - ENT ENT exam: Present: normal exam, normal orophraynx - Neck Neck exam: Present: normal inspection, full ROM. Absent: tenderness, meningismus, lymphadenopathy - Respiratory Respiratory exam: Present: normal lung sounds bilaterally. Absent: respiratory distress, wheezes, rales, rhonchi, stridor, chest wall tenderness - Cardiovascular Cardiovascular Exam: Present: regular rate, normal heart sounds - GI/Abdominal GI/Abdominal exam: Present: soft, normal bowel sounds. Absent: distended, tenderness, guarding, rebound, rigid - Extremities Exam Extremities exam: Present: normal inspection, full ROM, normal capillary refill. Absent: tenderness, pedal edema, joint swelling, calf tenderness - Back Exam Back exam: Present: normal inspection. Absent: CVA tenderness (R), CVA tenderness (L), vertebral tenderness - Neurological Exam Neurological exam: Present: alert, oriented X3, CN II-XII intact, normal gait, reflexes normal. Absent: motor sensory deficit - Psychiatric Psychiatric exam: Present: normal affect, normal mood - Skin Skin exam: Present: warm, dry, intact, normal color ED Course Vital Signs 02/06/22 03:05 Temperature 98.0 F Pulse Rate 81 Respiratory 20 Rate Blood Pressure 128/60 O2 Sat by Pulse 96 Oximetry - Reevaluation(s) Reevaluation #1: 02/06/22 10:23 Hiccups were resolved after medications patient states that he feels much better. He denies shortness of breath at this time. ED Medical Decision Making - Radiology Data Radiology results: report reviewed, image reviewed Chest x-ray: FINDINGS: SUPPORT DEVICES: None. HEART / MEDIASTINUM: No significant abnormality. LUNGS / PLEURA: Bilateral calcified pleural plaques are unchanged. This could indicate previous asbestos exposure or other pleural insult. Mild improvement in the bibasilar airspace opacities is demonstrated, particularly in the right perihilar region. No new infiltrate, large pleural effusion or pneumothorax. ADDITIONAL FINDINGS: No significant additional findings. IMPRESSION: 1. Mild improvement in the bibasilar lung opacities. No new acute process is appreciated. - Medical Decision Making 71-year-old black male with a past medical history of hypertension, CHF, CKD, and COPD with home oxygen at 3 L presents to the emergency department for evalu ation of shortness of breath. He states that he has had hiccups persistently for the last 2 days and it makes it feels like it is hard for him to catch his breath. He states that he does not have shortness of breath like he cannot breathe but just that he Makes It Much Harder to Breathe. He States That When He Lies down It Is Even Harder. He Denies Chest Pain, nausea, vomiting, dizziness, and fever. Patient noted to be having active hiccups during assessment. Physical exam unremarkable. Hiccups resolved after medication, and patient stated that he feels much better. He will be discharged home with Thorazine to use as needed for hiccups and advised to follow-up with primary care provider if no improvement or worsening symptoms. He verbalizes understanding of and agreement with plan of care. Critical care attestation.: If time is entered above; I have spent that time in minutes in the direct care of this critically ill patient, excluding procedure time. ED Disposition Clinical Impression: Hiccups Disposition: 01 HOME / SELF CARE / HOMELESS Is pt being admited?: No Does the pt Need Aspirin: No Condition: Stable Instructions: Hiccups Additional Instructions: Take medications as prescribed. Follow-up with primary care provider for further evaluation and management. Return to the emergency department as needed. Prescriptions: chlorproMAZINE [Thorazine] 25 mg PO Q4H PRN #15 tab PRN Reason: Hiccups Referrals: OBI RODGERS MD [Staff Physician] - 3-5 Days Time of Disposition: 10:33
== END 2022-02-06 10:47 | disposition home or self-care (01) ==
LOC: ED 03:01
DX: R06.6 Hiccough (principal); I11.0 Hypertensive heart disease with heart failure; I50.9 Heart failure, unspecified; E11.9 Type 2 diabetes mellitus without complications; J44.1 Chronic obstructive pulmonary disease with (acute) exacerbation; Z87.891 Personal history of nicotine dependence; Z91.013 Allergy to seafood; Z79.899 Other long term (current) drug therapy
CPT/HCPCS: 71046; 96372; 99283; J3230